=== PATIENT | male | born 1945 | race Caucasian/White ===

== ENCOUNTER → 2017-12-28 08:15 | Outpatient (CLI) | payer MEDICARE, SELFPAY ==
--- NOTE | 2017-12-29 | PROSBIL_PTH ---
PATIENT: UNA LOZADA LOC: [facility] U#:[id number] AGE/SX: 79/M ROOM: RE12/28/[address]: Dr. Dain Reardon MD : 1945 BED: DIS: SPEC #: [id number] RECD: 12/29/17 08:38 STATUS: FREDDIE CHYNA #: [id number] JONO: 12/29/17 00:[address]: Dain Reardon DEPT: SURGICAL PATHOLOGY RECD BY: Kai Salmeron Tissues: A - PROSTATE RIGHT B - PROSTATE RIGHT C - PROSTATE RIGHT D - PROSTATE LEFT E - PROSTATE LEFT F - PROSTATE LEFT Procedures: PROSTATE BX HEADER OPERATION: Prostate biopsy PRE-OP DIAGNOSIS: R97.20 TISSUE SUBMITTED: A-Right apex, B-Right mid, C-Right base, D-Left apex, E-Left mid, F-Left base MICROSCOPIC DIAGNOSIS A. Right prostate, apex, core biopsy: Prostatic adenocarcinoma: Mary grade: 8 (5+3). Cores involved: 2 out of 2. Tissue involved: 60% Perineural invasion: Not identified. Greatest tumor length: 1 cm, discontinuous. Focal high-grade prostatic intraepithelial neoplasia (HGPIN) Chronic inflammation. See comment. B. Right prostate, mid, core biopsy: Prostatic adenocarcinoma: Adenocarcinoma: [place] grade: 10 (5+5) Cores involved: 1 out of 2 Tissue involved: less than 5% Perineural invasion: not identified Greatest tumor length: 0.1 cm See comment. C. Right prostate, base, core biopsy: Negative for malignancy. See comment. D. Left prostate, apex, core biopsy: Prostatic tissue, negative for malignancy. E. Left prostate, mid, core biopsy: Prostatic tissue, negative for malignancy. F. Left prostate, base, core biopsy: Prostatic Adenocarcinoma: [place] grade: 6 (3+3) Cores involved: 1 out of 2 Tissue involved: < 5% Perineural invasion: not seen Greatest tumor length: 0.1 cm Focal high-grade prostatic intraepithelial neoplasia (HGPIN) See comment COMMENT A, B, C, and F Immunohistochemistry ([id number]) supports the above diagnosis. MICROSCOPIC DESCRIPTION Slides are reviewed. GROSS DESCRIPTION A - Received is one container designated prostate, right apex. The specimen consists of two elongated fragments of light humphrey-white soft tissue each measuring 1.5 cm in length and 0.1 cm in diameter. The specimen is totally submitted in one cassette. B - Received is one container designated prostate, right mid. The specimen consists of two elongated fragments of light humphrey-white soft tissue each measuring 1.5 cm in length and 0.1 cm in diameter. The specimen is totally submitted in one cassette. C - Received is one container designated prostate, right base. The specimen consists of two elongated fragments of light humphrey-white soft tissue each measuring 1.1 cm in length and 0.1 cm in diameter. The specimen is totally submitted in one cassette. D - Received is one container designated prostate, left apex. The specimen consists of one elongated fragments of light humphrey-white soft tissue each measuring 1.8 cm in length and 0.1 cm in diameter. The specimen is totally submitted in one cassette. E - Received is one container designated prostate, left mid. The specimen consists of three elongated fragments of light humphrey-white soft tissue each measuring 0.5 to 1.5 cm in length and 0.1 cm in diameter. The specimen is totally submitted in one cassette. F - Received is one container designated prostate, left base. The specimen consists of three elongated fragments of light humphrey-white soft tissue each measuring 0.3 to 1.5 cm in length and 0.1 cm in diameter. The specimen is totally submitted in one cassette. / [place]:gabbie 12/29/17 TC:0 CPT: G0146
--- NOTE | 2017-12-29 | IMM_PTH ---
PATIENT: UNA LOZADA LOC: [facility] U#:[id number] AGE/SX: 79/M ROOM: RE12/28/[address]: Dr. Dain Reardon MD : 1945 BED: DIS: SPEC #: [id number] RECD: 01/01/18 10:42 STATUS: FREDDIE RECarl #: [id number] JONO: 12/29/17 00:[address]: Dain Reardon DEPT: IMMUNOHISTOCHEMISTRY RECD BY: Winter Michaud Tissues: A - PROSTATE RIGHT B - PROSTATE RIGHT C - PROSTATE RIGHT F - PROSTATE LEFT Procedures: 34BE12 (add) P40 (add) 34BE12 (initial) PHYSICIAN & INSTITUTION [place] [id number] SPECIMEN INFORMATION: Tissue Source: A. Right prostate, apex, B. Right prostate, mid, C. Right prostate, base, F. Left prostate, base Clinical Info: R97.20 Specimen Number: [id number] A, B, C, F CPT code: 58190. [id number] METHODOLOGY: Deparaffinized sections of prefer/formalin-fixed tissue or PAP/DQ stained slides are incubated with monoclonal/polyclonal antibodies/oligonucleotide probes. Localization is made via biotin free immunoperoxidase method. Appropriate controls are performed and reacted as expected. Results on target cell population are indicated in the following table: RESULTS: ANTIBODY / CLONE RESULT Block A P40 (BC28) negative 34BE12 (34BE12) negative Block B P40 (BC28) negative 34BE12 (34BE12) negative Block C P40 (BC28) positive 34BE12 (34BE12) positive Block F P40 (BC28) negative 34BE12 (34BE12) negative These tests were developed and their performance characteristics determined by [facility]. They may not have been cleared or approved by the U.S. Food and Drug Administration. The FDA has determined that such clearance or approval is not necessary. INTERPRETATION: A. Right prostate, apex: Adenocarcinoma B. Right prostate, mid: Adenocarcinoma C. Right prostate, base: Negative for adenocarcinoma F. Left prostate, base: Adenocarcinoma [place]:bill 01/02/18
== END ==
LOC: LAB 12-29 08:16 → LABSPEC 12-29 08:19
PROVIDERS: Visit Provider Urology
DX: R97.20 Elevated prostate specific antigen [PSA] (principal)
CPT/HCPCS: 88305; 88341; 88342; G0416

== ENCOUNTER → 2018-01-04 10:01 | Outpatient (CLI) | payer MEDICARE, SELFPAY ==
--- NOTE | 2018-01-04 10:08 | NM_ITS ---
CLINICAL: 72-year-old male with history of apparent prostate carcinoma. WHOLE BODY 99m Tc MDP RADIONUCLIDE BONE SCINTIGRAPHY COMPARISON: None available FINDINGS: Following the intravenous administration of 25.9 mCi of 99m Tc MDP, whole body bone images reveal: 1. Increased radiopharmaceutical concentration is identified in the proximal sternum, the sixth-ninth and 12th thoracic vertebra. 2. Enhanced tracer uptake is defined in the acromioclavicular compartments of both shoulders, sternoclavicular compartment of the right shoulder, upper cervical spine posteriorly on the right, first thoracic vertebra posteriorly on the right, fourth lumbar vertebra posteriorly on the left, the fifth lumbar vertebra posteriorly on the right, bilateral elbow and wrist articulations, right-left knees, right ankle, the forefoot bilaterally. 3. The remaining skeletal structures are scintigraphically unremarkable with normal-appearing renal images and urinary bladder activity identified. NM/Bone Scan Whole Body IMPRESSION: 1. The increased radiopharmaceutical concentration identified in the proximal sternum, mid and lower thoracic spine may be further investigated with plain film radiography in the setting of known prostate carcinoma. 2. Degenerative arthritis is otherwise expressed in the cervical and upper thoracic spine, lower lumbar spine, bilateral shoulder elbow and wrist articulations, right-left knees, the right ankle, right-left forefoot. Electronically Signed: Jayce Bunn DO at 10:37 EDT Tel , Service support ,
== END ==
PROVIDERS: Family Provider Preventive Medicine Occupational Medicine; PCP Preventive Medicine Occupational Medicine; Visit Provider Urology
DX: C61 Malignant neoplasm of prostate (principal)
CPT/HCPCS: 78306

== ENCOUNTER → 2018-01-05 14:07 | Outpatient (CLI) | payer MEDICARE, SELFPAY ==
--- NOTE | 2018-01-05 14:25 | RAD_ITS ---
STUDY: X-RAY - THORACIC SPINE REASON FOR EXAM: Male, 72 years old. Prostate cancer. Back pain. TECHNIQUE: 3 view(s) of the thoracic spine were obtained. COMPARISON: None. FINDINGS: There are multilevel degenerative disc and facet changes. There are NO fractures or malalignments. Bone density is within normal limits. There is normal kyphosis of thoracic spine. The paraspinal soft tissues are unremarkable. RAD/Thoracic Spine 2 Views IMPRESSION: There is NO acute bony abnormality. Electronically Signed: Amaury Gauthier MD at 1:13 EDT , Service support ,
--- NOTE | 2018-01-05 14:40 | RAD_ITS ---
STUDY: X-RAY STERNUM REASON FOR EXAM: Male, 72 years old. Abnormal bone scan TECHNIQUE: 4 view(s) of the sternum were obtained. COMPARISON: Bone scan January 04, 2018. FINDINGS: Normal manubrium. Normal sternomanubrial joint. Normal sternal body and xiphoid process. There is no demonstrated fracture of the sternum. No blastic or lytic lesions. Increased radioisotope uptake at the proximal sternal area may be related to the sternomanubrial junction with a broken sternotomy wire at this level. The soft tissue structures are unremarkable. RAD/Sternum min 2 Views IMPRESSION: Increased radioisotope uptake at the proximal sternal area may be related to the sternomanubrial junction with a broken sternotomy wire at this level. Electronically Signed: Chuckie Torres DO at 8:45 EDT Tel [phone], Service support ,
--- NOTE | 2018-01-05 14:55 | RAD_ITS ---
STUDY: X-RAY - LUMBAR SPINE REASON FOR EXAM: Male, 72 years old. Prostate cancer TECHNIQUE: 6 view(s) of the lumbar spine were obtained. COMPARISON: None FINDINGS: There are pedicle screws and fusion hardware transfixing L2, L3, L4, L5 and S1. The hardware is intact. There is loss of disc height and slight grade 1 anterior spondylolisthesis at L5-S1. There is bilateral facet hypertrophy, osteophytic ridging and foraminal stenosis at L4-5 and L5-S1. There are NO fractures. There is NO specific evidence of metastatic malignancy. There is RIGHT hip replacement hardware. There are stones in the region of the RIGHT kidney. There is calcified plaque in the abdominal aorta without evidence of aneurysm. RAD/L/S Spine Min 4 Views IMPRESSION: There are postsurgical and degenerative changes as described. There is NO fracture. There is NO evidence of metastatic malignancy. Electronically Signed: Amaury Gauthier MD at 7:09 EDT , Service support ,
== END ==
PROVIDERS: Family Provider Preventive Medicine Occupational Medicine; PCP Preventive Medicine Occupational Medicine; Visit Provider Nurse Practitioner Adult Health
DX: C61 Malignant neoplasm of prostate (principal)
CPT/HCPCS: 71120; 72070; 72110

== ENCOUNTER → 2018-02-13 11:02 | Outpatient (CLI) | payer MEDICARE, SELFPAY ==
[2018-02-13 11:37] LABS: Absolute Lymphocyte Count 1.97 X10^3/ul (0.83-4.51); Basophil# 0.03 X10^3/uL; Basophil% 0.4 % (0-1); Eosinophil# 0.23 X10^3/uL; Eosinophils% 3.4 % (0-5); Hemoglobin 14.2 g/dl (13.0-16.5); Lymphocyte # 1.97 X10^3/ul (4.0); Lymphocyte % 29.1 % (19-41); Mean Corp Hgb Conc 32.3 g/gl (32-36); Mean Corpuscular Hgb 30.5 pg (27.0-32.0); Mean Corpuscular Volume 94.4 fL (80-94); Mean Platelet Vol. 9.8 fl (6.2-12.0); Monocyte# 0.53 X10^3/uL; Monocyte% 7.8 % (0-10); Neutrophil # 3.99 X10^3/uL (2.7-7.7); Neutrophil % 59.2 % (47-70); Platelet Count 217 K/mm3 (150-450); RBC Distribution Width CV 13.2 % (11.6-14.6); RBC Distribution Width SD 45.4 fl (35.1-43.9); Red Blood Count 4.66 M/mm3 (4.6-6.2); White Blood Count 6.8 K/mm3 (4.4-11.0)
[2018-02-13 11:38] LABS: POSITIVE COUNT NO; POSITIVE DIFFERENTIAL NO; POSITIVE MORPHOLOGY NO
[2018-02-13 12:33] LABS: Creatinine, Serum 1.86 mg/dL (0.70-1.30); EST Glomerular Filtration Rate 38 mL/min (>60); Est Glom Filt Rate - Afr Amer 46 mL/min (>60); PSA,Total- Diagnostic 0.67 ng/mL (0.0-4.0)
== END ==
PROVIDERS: Family Provider Preventive Medicine Occupational Medicine; PCP Preventive Medicine Occupational Medicine; Visit Provider Radiology Radiation Oncology
DX: Z01.818 Encounter for other preprocedural examination (principal); C61 Malignant neoplasm of prostate
CPT/HCPCS: 36415; 82565; 84153; 85025

== ENCOUNTER → 2018-02-14 12:54 | Outpatient (CLI) | payer MEDICARE, SELFPAY ==
--- NOTE | 2018-02-14 12:57 | CT_ITS ---
STUDY: CT PELVIS WITH CONTRAST REASON FOR EXAM: Male, 72 years old. Recent diagnosis of prostate cancer. This is a radiation treatment planning examination. RADIATION DOSAGE (If Supplied By Facility): CTDIvol = ( 24.46 ) mGy, DLP = ( 808.03 ) mGycm TECHNIQUE: Transaxial imaging of the pelvis was performed with oral contrast. 75mL ml of Isovue 300 contrast was administered intravenously. Individualized dose optimization techniques were used for this CT. COMPARISON: None. FINDINGS: Normal urinary bladder. Prostatic calcifications are seen. Metallic pellets are seen within the prostate gland. The prostate causes indentation at the bladder base more prominent on the left side. Normal visualized small intestine. There are multiple colonic diverticula of the sigmoid colon consistent with chronic diverticulosis. There is no pelvic fluid. There is no pelvic lymphadenopathy or mass lesion. There is diffuse atherosclerotic calcification of the distal abdominal aorta and pelvic arteries. Normal abdominal wall. The patient is status post right total hip replacement. Status post laminectomy and interpedicular screw fixation at the L4-L5 and L5-S1 levels. Sclerotic foci seen within the L4 and L5 vertebrae. Bone scan is recommended. CT/CT Pelvis W/CONT Therapy IMPRESSION: Metallic pellets are seen within the prostate. Calcification within the prostate gland. Indentation of the bladder base worse on the left side most likely secondary to the prostate. Electronically Signed: Asher Reed MD at 13:30 EDT Tel [phone], Service support ,
== END ==
PROVIDERS: Family Provider Preventive Medicine Occupational Medicine; PCP Preventive Medicine Occupational Medicine; Visit Provider Radiology Radiation Oncology
DX: C61 Malignant neoplasm of prostate (principal)
CPT/HCPCS: 51600; 72193; Q9965; Q9967; A4216

== ENCOUNTER → 2018-06-07 10:50 | Outpatient (CLI) | payer MEDICARE, SELFPAY ==
[2018-06-07 11:51] LABS: PSA,Total- Diagnostic < 0.01 ng/mL (0.0-4.0)
== END ==
PROVIDERS: Family Provider Preventive Medicine Occupational Medicine; PCP Preventive Medicine Occupational Medicine; Referring Provider Radiology Radiation Oncology; Visit Provider Radiology Radiation Oncology
DX: Z85.46 Personal history of malignant neoplasm of prostate (principal)
CPT/HCPCS: 36415; 84153

== ENCOUNTER → 2018-11-12 10:54 | Outpatient (CLI) | payer MEDICARE, SELFPAY ==
[2018-11-12 11:53] LABS: PSA,Total- Diagnostic < 0.01 ng/mL (0.0-4.0)
== END ==
PROVIDERS: Family Provider Preventive Medicine Occupational Medicine; PCP Preventive Medicine Occupational Medicine; Referring Provider Urology; Visit Provider Urology
DX: C61 Malignant neoplasm of prostate (principal); R97.20 Elevated prostate specific antigen [PSA]
CPT/HCPCS: 36415; 84153

== ENCOUNTER → 2019-05-14 10:00 | Outpatient (CLI) | payer MEDICARE, SELFPAY ==
[2019-05-14 13:20] LABS: PSA,Total- Diagnostic < 0.01 ng/mL (0.0-4.0)
== END ==
PROVIDERS: Family Provider Preventive Medicine Occupational Medicine; PCP Preventive Medicine Occupational Medicine; Referring Provider Urology; Visit Provider Urology
DX: R97.20 Elevated prostate specific antigen [PSA] (principal)
CPT/HCPCS: 36415; 84153

== ENCOUNTER → 2019-07-23 13:35 | Outpatient (CLI) | payer MEDICARE, SELFPAY ==
--- NOTE | 2019-07-23 13:45 | CT_ITS ---
STUDY: CT SCAN HIP RIGHT REASON FOR EXAM: Male, 73 years old. Right hip pain, osteoarthritis, fell 4 months ago, ? fracture. Hx prostate cancer with radiation treatment. Prior right hip replacement. RADIATION DOSAGE (If Supplied By Facility): CTDIvol = ( 13.14 ) mGy, DLP = ( 498.76 ) mGycm. Individualized dose optimization techniques were used for this CT.? TECHNIQUE: Multiple axial tomographic images of the hip joint were obtained without intravenous contrast administration. Sagittal and coronal reconstruction was obtained as well. COMPARISON: None. FINDINGS: The patient is status post right total hip replacement. There is good alignment. No evidence of subluxation. No evidence of fracture. Prior laminectomy and fusion in the lower lumbar spine. Disc space narrowing and degeneration at the L4-L5, L5-S1 levels. Degenerative changes of the right sacroiliac joint. Metallic seeds are seen within the prostate gland. CT/Extremity Lower without Contra IMPRESSION: Status post right total hip replacement. Prior laminectomy and fusion in the lower lumbar spine with degenerative changes. Electronically Signed: Asher Reed, at 14:56 EST , Service support ,
== END ==
PROVIDERS: Family Provider Preventive Medicine Occupational Medicine; PCP Preventive Medicine Occupational Medicine; Referring Provider Orthopaedic Surgery; Visit Provider Orthopaedic Surgery
DX: M16.11 Unilateral primary osteoarthritis, right hip (principal)
CPT/HCPCS: 73700

== ENCOUNTER → 2019-08-20 10:31 | Outpatient (CLI) | payer MEDICARE, SELFPAY ==
[2019-08-20 11:18] LABS: PSA,Total- Diagnostic < 0.01 ng/mL (0.0-4.0)
== END ==
PROVIDERS: PCP Preventive Medicine Occupational Medicine; Referring Provider Urology; Visit Provider Urology
DX: C61 Malignant neoplasm of prostate (principal)
CPT/HCPCS: 36415; 84153

== ENCOUNTER → 2019-09-17 07:29 | Outpatient (CLI) | payer MEDICARE, SELFPAY ==
--- NOTE | 2019-09-17 07:35 | CT_ITS ---
STUDY: CT LUMBAR SPINE WITHOUT CONTRAST REASON FOR EXAM: Male, 73 years old. PSEUDOARTHROSIS. Prior lumbar fusion, rt hip replacement and CABG. HTN-rx controlled. Hx of prostate cancer with radiation RADIATION DOSAGE (If Supplied By Facility): CTDIvol = ( 14.35 ) mGy, DLP = ( 438.44 ) mGycm TECHNIQUE: The patient was scanned in a multi detector CT scanner. High resolution transaxial imaging was performed. Images were obtained from T12 to S1 vertebrae. Sagittal and coronal images were reconstructed. Individualized dose optimization techniques were used for this CT. COMPARISON: None FINDINGS: Normal lumbar lordosis. There is no substantial scoliosis. Normal vertebrae of the lumbar spine. The patient is status post interpedicular screw fixation at the L2-L3, L3-L4 L4-L5 and L5-S1 levels. L1-2: Interpedicular screw fixation is seen at the level of the L2 pedicles. L2-3: Increased density of the disc suggestive of prior discogram. The patient is status post interpedicular screw fixation. This screws are in good position. Facet joint hypertrophy with moderate narrowing of both intervertebral foramen. L3-4: Moderate degree of disc space narrowing. Contrast is seen within the disc in keeping with prior discogram. Status post interpedicular screw fixation with mild to moderate degree of bilateral neural foraminal stenosis. L4-5: The patient is status post screw fixation. Contrast is seen within normal-appearing disc suggestive of prior discogram. Facet joint osteoarthritis. L5-S1: Grade 1 anterolisthesis of L5 on S1. Interpedicular screw fixation. Increased density within the disc suggestive of prior discogram. No significant stenosis seen. The patient is status post right hip replacement. Calcification of the visualized distal abdominal aorta and iliac arteries bilaterally. CT/Spine Lumbar without Contrast IMPRESSION: Multilevel degenerative changes, as described above. Multilevel discograms with interpedicular screw fixation. Grade 1 anterolisthesis of L5 on S1. Electronically Signed: Asher Reed, at 8:32 EDT , Service support ,
--- NOTE | 2019-09-17 07:46 | NM_ITS ---
CLINICAL: 73-year-old male with reported history of carcinoma of the prostate WHOLE BODY 99m Tc MDP RADIONUCLIDE BONE SCINTIGRAPHY COMPARISON: Previous whole body bone scintigraphy study dated 01/04/2018 FINDINGS: Following the intravenous administration of 27.0 mCi of 99m Tc MDP, whole body bone images reveal: 1. Increased radiopharmaceutical concentration remains apparent in the bilateral shoulders, mid cervical spine posteriorly on the left and right, right elbow, bilateral wrist articulations, medial femoral and tibial compartments of the left knee, bilateral forefoot, the seventh, ninth and 12th thoracic vertebra. 2. Enhanced tracer uptake is noted in the acetabular component of the right hip arthroplasty. 3. The remaining skeletal structures are scintigraphically unremarkable with normal-appearing renal images and urinary bladder activity identified. Redemonstrated facilitated tracer distribution is noted in the proximal sternum likely attributed to poststernotomy changes. NM/Bone Scan Whole Body IMPRESSION: 1. The increase in radiopharmaceutical concentration observed in the acetabular component of the right hip prosthesis likely represents a component of loosening secondary to the intensity of uptake. Correlation plain film radiography may be of benefit for further evaluation if trauma-fracture is a diagnostic consideration. 2. Degenerative arthritis appears expressed in the bilateral shoulders, right elbow, both wrists, left knee, right and left forefoot, cervical and thoracic spine. 3. Overall compared to the previous whole body bone scintigraphy study dated 01/04/2018, newly identified increased tracer uptake noted in the acetabular component of the right hip prosthesis may warrant further radiologic investigation. Electronically Signed: Jayce Bunn DO at 23:36 EDT Tel , Service support ,
== END ==
PROVIDERS: PCP Preventive Medicine Occupational Medicine; Referring Provider Orthopaedic Surgery; Visit Provider Orthopaedic Surgery
DX: M96.0 Pseudarthrosis after fusion or arthrodesis (principal)
CPT/HCPCS: 72131; 78306

== ENCOUNTER → 2019-11-28 11:27 | Outpatient (CLI) | payer MEDICARE, SELFPAY ==
[2019-11-28 13:00] LABS: PSA,Total- Diagnostic < 0.01 ng/mL (0.0-4.0)
== END ==
PROVIDERS: PCP Preventive Medicine Occupational Medicine; Referring Provider Urology; Visit Provider Urology
DX: C61 Malignant neoplasm of prostate (principal)
CPT/HCPCS: 36415; 84153

== ENCOUNTER 2020-01-08 16:15 | Inpatient (IN) | payer MEDICARE, SELFPAY ==
[2020-01-08 16:17] VITALS: BP 147/84; PULSE 74; PULSE 75; RESP 18; RESP 20; TEMP 36.7; O2SAT 98; O2SAT 99; BMI 24.0
--- NOTE | 2020-01-08 16:33 | ED.DCSUM_ITS ---
History of Present Illness Chief Complaint: Lower Extremity Injury Informant: Patient, Significant Other Occurred: Month(s) - 9 Mechanism/Context: Fall Context: Sudden Onset Timing: Continuous Quality of Pain: Aching Location: R hip Current Severity: Severe Maximum Severity: Severe Worsened by: trying to WB, moving RLE Relieved by: remaining still Associated Symptoms: Negative for: Parasthesia, Weakness, Loss of Funtion Narrative: Patient and spouse state that he had a remote right total hip arthroplasty by Dr. Abdul, and 9 months ago he had a mechanical fall wherein he fell onto the right hip and has been having pain ever since. He is on pain management and has had injections but they have not helped. He saw Dr. Abdul about 4 months ago and had x-rays. They state that the pain is been getting worse, states that pain management physician was supposed to discuss with orthopedics yesterday because he feels it is something mechanical. Patient is having so much pain now, that he cannot walk, so they felt that the had no choice other than to come to the emergency department, because they have not heard from anyone else yet despite trying to get a hold of these practitioners today. Denies any fevers or repeat injuries. No numbness or weakness distally. No other pain. Takes no anticoagulants. - Past Medical History (1) CAD (coronary artery disease) Status: Chronic (2) Arthritis Status: Chronic Past Medical History - Allergies and Home Meds Allergies/Adverse Reactions: Allergies ciprofloxacin [From Cipro] Adverse Reaction (Verified 01/08/20 16:16) Other PANCREATITIS ciprofloxacin HCl [From Cipro] Adverse Reaction (Verified 01/08/20 16:16) Other PANCREATITIS erythromycin base [Erythromycin Base] Adverse Reaction (Verified 01/08/20 16:16) Other LUMPS ON BODY potassium Adverse Reaction (Verified 01/08/20 16:16) Other POTASSIUM LEVELS ARE ELEVATED Primary Care Physician: Bladimir Bazan DO [Primary Care Provider] - Surgical History: coronary bypass surgery, total hip arthroplasty Lives: Spouse/ Significant Other Smoking Status: Former smoker Review of Systems General: Denies: Chills, Fever, Sweats Eyes: Denies: Visual changes - bilaterally, Diplopia ENT: Denies: Rhinorrhea, Sore throat Cardiovascular: Denies: Chest pain, Palpitations Respiratory: Denies: Dyspnea, Cough, Dyspnea on exertion Gastrointestinal: Denies: Abdominal pain, Nausea, Vomiting, Diarrhea, Melena, Hematochezia Genitourinary: Denies: Dysuria, Hematuria, Frequency Musculoskeletal: Reports: Extremity Pain. Denies: Neck pain, Back pain, Swelling Skin: Denies: Rash, Wounds Neurological: Denies: Headache, Weakness, Numbness Physical Exam Vital Signs/Narrative: Vital Signs Temp Pulse Resp BP Pulse Ox 01/08/20 16:17 98.0 F 74 18 147/84 H 99 Inital Vital Signs reviewed: Yes - Extremity Exam Right Hip: Limited ROM - Significant pain with any internal/external rotation of the right hip. With short arc range of motion, he does not have any stiffness of the joint but it is painful. There is no overlying erythema or warmth about the right groin or lateral aspect of the hip joint. There is shortening of the right lower extremity compared with the left. General: Well nourished, Well developed, - - nad Head: Normocephalic, Atraumatic Eyes: Perrl, EOMI ENT: No Trauma, Moist Mucous Membranes Neck: Nontender, Full ROM Cardiovascular: Regular rate, Regular rhythm, No murmurs Respiratory: No distress, CTA bilaterally, Chest nontender Abdomen: Soft, Nontender, Normal bowel sounds Back: Nontender Skin: Normal color, No rash, No Trauma Neurological: Alert, Oriented x3, Cranial nerves II-XII grossly intact, Normal Strength, Normal Sensation Psychological: Normal affect, Normal Mood Diagnostic/Tx/Re-eval Impressions Hip/Pelvis X-Ray 01/08/20 17:18 IMPRESSION: Prosthetic right femoral head has eroded from the acetabulum into the inferior right ilium and a medial cephalad direction. Femoral shaft component remains intact without periprosthetic fracture or disruption. The remainder of the pelvic ring and left hip remain unchanged. Bilateral spinal fusion hardware included in the [id number] and appears unchanged as excluded. Electronically Signed: Noreen Cruz MD at 17:38 EDT , Service support , 01/08/20 17:18 HIP, UNI W/ Pelvis 2-3 Views [RAD] Stat 01/08/20 18:52 CT Hip [Pelvis without IV Contrast] [CT] Stat Laboratory Results 01/08/20 01/08/20 17:00 17:00 WBC 9.5 RBC 4.16 L Hgb 13.2 Hct 40.2 MCV 96.6 H MCH 31.7 MCHC 32.8 RDW Std Deviation 46.5 H RDW Coeff of Eric 13.2 Plt Count 277 MPV 9.5 Immature Gran % (Auto) 0.400 Neut % (Auto) 72.7 H Lymph % (Auto) 16.5 L [place] % (Auto) 8.4 Eos % (Auto) 1.7 Baso % (Auto) 0.3 Absolute Neuts (auto) 6.9 Absolute Lymphs (auto) 1.57 Nucleated RBC % 0 ESR 22 H Sodium 137 Potassium 4.2 Chloride 104 Carbon Dioxide 24.0 Anion Gap 9 BUN 23 H Creatinine 1.54 H Estim Creat Clear Calc 32.84 Est GFR (MDRD) Af Amer 57 L Est GFR (MDRD) Non-Af 47 L BUN/Creatinine Ratio 14.9 Glucose 113 H Calcium 9.7 C-React Prot Ext Range 6.89 H - Medical Decision Making X-ray shows erosion of the acetabulum and displacement of the femoral prosthetic into the pelvis. Labs including ESR and CRP are obtained and as above. Discussed with orthopedics, Dr. Naik covering for Dr. Abdul. He discussed with Dr. Jacinto who is able to care for this patient will see him tomorrow in the hospital. Hospitalist requested for admission. Discussed with Dr. Turcios. ED Disposition - Plan for ED Patient: Disposition: Acute Care Hospital [facility] Diagnosis: Displaced dome fracture of right acetabulum Referrals: Bladimir Bazan DO [Primary Care Provider] -
[2020-01-08] MEDS: Morphine 2 MG/ML Syringe IV (16:56)
--- NOTE | 2020-01-08 17:18 | RAD_ITS ---
STUDY: X-RAY - PELVIS AND RIGHT HIP REASON FOR EXAM: Male, 74 years old. CHRONIC HIP PAIN FOR 9 MONTHS, HEARD A POP 4 DAYS AGO TECHNIQUE: 3 views of the pelvis and hip. COMPARISON: Prior CT pelvis of February 14, 2018 and prior pelvis and hip radiographs of June 24, 2013 FINDINGS: There is a non-specific bowel gas pattern. Bilateral posterior spinal fusion hardware included in the [id number] extends throughout the lumbar level to the level of S1. The prosthetic right femoral head has eroded from the acetabulum into the inferior right ilium and has migrated cephalad. The femoral portion of the prosthesis is intact without periprosthetic abnormality. The pelvic ring is otherwise intact. The left femur remains normally located with moderate to moderately advanced joint narrowing. RAD/HIP, UNI W/ Pelvis 2-3 Views IMPRESSION: Prosthetic right femoral head has eroded from the acetabulum into the inferior right ilium and a medial cephalad direction. Femoral shaft component remains intact without periprosthetic fracture or disruption. The remainder of the pelvic ring and left hip remain unchanged. Bilateral spinal fusion hardware included in the [id number] and appears unchanged as excluded. Electronically Signed: Noreen Cruz MD at 17:38 EDT , Service support ,
[2020-01-08 17:19] LABS: Absolute Lymphocyte Count 1.57 X10^3/uL (0.83-4.51); Absolute Neutrophil Count 6.9 X10^3/uL (2.0-7.7); Basophil# 0.03 X10^3/uL; Basophil% 0.3 % (0-1); Eosinophil# 0.16 X10^3/uL; Eosinophils% 1.7 % (0-5); Hematocrit 40.2 % (40-54); Hemoglobin 13.2 g/dL (13.0-16.5); Lymphocyte # 1.57 X10^3/ul (4.0); Lymphocyte % 16.5 % (19-41); Mean Corp Hgb Conc 32.8 g/dL (32-36); Mean Corpuscular Hgb 31.7 pg (27.0-32.0); Mean Corpuscular Volume 96.6 fL (80-94); Mean Platelet Vol. 9.5 fl (6.2-12.0); Monocyte% 8.4 % (0-10); NRBC Flagged by Analyzer 0 % (0-5); Neutrophil # 6.92 X10^3/uL (2.7-7.7); Neutrophil % 72.7 % (47-70); Platelet Count 277 K/mm3 (150-450); RBC Distribution Width CV 13.2 % (11.6-14.6); RBC Distribution Width SD 46.5 fl (35.1-43.9); Red Blood Count 4.16 M/mm3 (4.6-6.2); White Blood Count 9.5 K/mm3 (4.4-11.0)
[2020-01-08 17:31] LABS: Erythrocyte Sedimentation Rate 22 mm/hr (0-20)
[2020-01-08 17:36] LABS: Anion Gap 9 (5-15); BUN 23 mg/dL (7-18); BUN/Creat Ratio 14.9 RATIO (10-20); CRP 6.89 mg/L (0.0-3.0); Calcium,Total 9.7 mg/dL (8.5-10.1); Chloride 104 mmol/L (98-107); Creatinine, Serum 1.54 mg/dL (0.70-1.30); EST Glomerular Filtration Rate 47 mL/min (>60); Est Glom Filt Rate - Afr Amer 57 mL/min (>60); Estimated Creatinine Clearance 32.84 ml/min; Glucose 113 mg/dL (74-106); Potassium 4.2 mmol/L (3.5-5.1); Sodium Level 137 mmol/L (136-145)
--- NOTE | 2020-01-08 18:52 | CT_ITS ---
STUDY: CT PELVIS WITHOUT CONTRAST REASON FOR EXAM: Male, 74 years old. INCREASING RT HIP PAIN X 9 MO FALL AFTER TOTAL HIP RADIATION DOSAGE (If Supplied By Facility): CTDIvol = ( 13.17 ) mGy, DLP = ( 434.12 ) mGycm TECHNIQUE: Transaxial imaging of the pelvis was performed with oral contrast, and without intravenous administration of contrast material. Multiplanar coronal and sagittal images were reformatted. Individualized dose optimization techniques were used for this CT. COMPARISON: And pelvis films of January 20, 2020 FINDINGS: The total hip arthroplasty hardware remains located and has migrated medial and cephalad out of the acetabulum, through the inferior right ilium and situated on the medial surface of the ilium covered at least partly by a thin wall of bone or ossification and covered over by the attenuated iliopsoas muscle. The left hip remains normally located. Demineralized osseous structures are within otherwise intact pelvis. Spinal fusion hardware noted in the lumbar area terminating at sacral level. There is no pelvic fluid. Diverticulosis of the colon. Unremarkable urinary bladder. Small fatty left inguinal hernia. Minimal right inguinal hernia. There is diffuse atherosclerotic calcification of the pelvic arteries. Normal osseous structures. CT/Pelvis without IV Contrast IMPRESSION: The total right hip arthroplasty hardware remains located and has migrated medial and cephalad out of the acetabulum through the inferior ilium and lies on the medial surface of the right ilium and covered over by the attenuated iliopsoas muscle. Electronically Signed: Noreen Cruz MD at 19:30 EDT , Service support ,
[2020-01-08] MEDS: Morphine 4 MG/ML Syringe IV (19:24)
--- NOTE | 2020-01-08 19:34 | HP.PCM_ITS ---
Problem List (1) Hypertension Status: Chronic (2) CAD (coronary artery disease) Status: Chronic Qualifiers: Coronary Disease-Associated Artery/Lesion type: unspecified vessel or lesion type Associated angina: without angina (3) Displaced dome fracture of right acetabulum Status: Acute Qualifiers: Encounter type: initial encounter Fracture type: closed Qualified Code(s): S32.481A - Displaced dome fracture of right acetabulum, initial encounter for closed fracture (4) Prostate cancer Status: Suspected History of Present Illness Date of Admission: 01/08/20 Chief Complaint: Right hip pain, ongoing for 9 months The patient is a 74 year old M with past medical history of CAD status post stent, status post CABG in 2011, prostate cancer in remission, hypertension, who had a hip replacement done in 2012 comes in with a 9-month history of right hip pain. He reportedly saw the Dr. Carias in October of this year and x-rays including MRI were negative for acute fracture. He has had 2 falls the last 6 months, the last one was 3 weeks ago when he fell on his left side. Progressively over the last 3 months, patient has been having severe right hip pain with a feeling of hip popping out. Last felt his hip pop out 4 days ago. He also follows up with Dr. Sena and has been getting injections in the hip. He moves around with the use of a walker. He is however unable to walk due to excruciating pain. He follows with a [facility] specialist in [place], Dr. Tia Plaza. Patient and his reportedly see the patient had a stress test about a year ago that was normal Vitals in the ED showed temperature of 98.0F, heart rate 75, blood pressure 147/84, respiratory 20, SPO2 was 98% on room air. WBC count is 9.5, Hb 13.2, platelet count 277, sodium 137, potassium 4.2, chloride 104, bicarbonate 24, BUN 23, creatinine 1.54, CRP is 6.89 X-ray of the right hip and pelvis shows prosthetic right femoral head is eroded from the acetabulum into the inferior right ilium in a medial cephalad direction. Rest of femur shaft and pelvic bones are intact without fracture. This was confirmed with pelvic CT which showed migration of the prosthesis medially and cephalad out of the acetabulum through the inferior ilium and lies on the medial surface of the right ilium and covered by the attenuated iliopsoas muscle. Past Medical History Past Medical History (Chronic Problems): Chronic Problems CAD (coronary artery disease) (Chronic) Arthritis (Chronic) Hypertension (Chronic) Allergies ciprofloxacin [From Cipro] Adverse Reaction (Verified 01/08/20 16:16) Other PANCREATITIS ciprofloxacin HCl [From Cipro] Adverse Reaction (Verified 01/08/20 16:16) Other PANCREATITIS erythromycin base [Erythromycin Base] Adverse Reaction (Verified 01/08/20 16:16) Other LUMPS ON BODY potassium Adverse Reaction (Verified 01/08/20 16:16) Other POTASSIUM LEVELS ARE ELEVATED Home Medications: Ambulatory Orders Medication Instructions Recorded Aspirin [Aspirin, Baby] 81 mg PO DAILY 01/08/20 Celecoxib [Celebrex] 200 mg PO DAILY 01/08/20 Hydrocodone/Acetaminophen 1 - 2 tab PO Q8H PRN PRN 01/08/20 [Hydrocodon-Acetaminoph 7.5-325] Metoprolol Tartrate [Lopressor 25 mg PO DAILY 01/08/20 (Beta Tony)] Vitamin A 1 tab PO DAILY 01/08/20 Vitamin B Complex 1 tab PO DAILY 01/08/20 Vitamin C 1 tab PO DAILY 01/08/20 Vitamin D3 1 tab PO DAILY 01/08/20 Vitamin E 1 tab PO DAILY 01/08/20 Surgical History: coronary bypass surgery, total hip arthroplasty, - - s/p back surgeries Psychiatric History: No pertinent psych hx Lives: Spouse/ Significant Other Smoking Status: Former smoker Tobacco Use: Non-smoker Alcohol: None Drugs: None - *Family History Maternal History Items: Heart Disease Paternal History Items: Heart Disease Review of Systems Constitutional: Denies: Anorexia, Chills, Fever, Malaise, Weakness, Weight Change, Fatigue Eyes: Denies: Blurred vision, Cataracts, Pain, Redness HEENT: Denies: Difficulty Hearing, Difficulty Swallowing, Head Aches, Hearing Changes, Sinus Congestion, Sinus Drainage Cardiovascular: Denies: Chest Pain, Claudication, Orthopnea, Palpitations, Paroxysmal Noc. Dyspnea Respiratory: Denies: Cough, Hemoptysis, Shortness of breath at rest, Shortness of breath upon exertion, Sputum production Gastrointestinal: Denies: Abdominal Pain, Hematemesis, Hematochezia, Nausea, Vomiting Genitourinary: Denies: Dysuria, Frequency, Incontinence, Nocturia Musculoskeletal: Reports: Joint Pain, Joint stiffness, Joint Tenderness Skin: Denies: Pruritis, Rash, Wounds Neurological: Reports: Numbness - in right lower leg. Denies: Difficulty swallowing, Focal weakness, Tingling Psychiatric: Denies: Anxiety, Depression, Homicidal Ideations, Suicidal Ideations Hematologic/ Lymphatic: Denies: Easy Bruising, Easy Bleeding VTE Information - Inpt Only VTE Present on Admission: No VTE Pharm Prophylaxis ordered?: Yes Patient Problems: Active and Suspected Problems Displaced dome fracture of right acetabulum (Acute) Prostate cancer (Suspected) - Physical Exam Vitals/I&O's: Vital Signs Temp Pulse Resp BP Pulse Ox 98.0 F 75 20 H 147/84 H 99 01/08/20 16:17 01/08/20 16:17 01/08/20 16:17 01/08/20 16:17 01/08/20 16:17 Oxygen Delivery Method Room Air Weight: 61.689 kg Body Mass Index (BMI) 24.0 General: Alert, Oriented x3, Cooperative, - - in mild distress from right hip pain HEENT: Atraumatic, PERRLA, EOMI, Normocephalic Oral: Moist Mucosa Neck: Supple Lungs: Clear to auscultation, Normal air movement Cardiovascular: Regular rate, Regular Rhythm, Normal S1, Normal S2, Murmur - 3/6 holosystolic murmur in aortic region Abdomen: Bowel Sounds Present, Soft, Non Tender, Non-Distended, No Hepato- splenomegaly Extremities: No edema, Tenderness - over the right hip Skin: No rashes, No breakdown Musculoskeletal: Tenderness - right leg is shortened, externally rotated, right hip tender to touch Lymphatic: No Cervical, Supraclavicular, or Inguinal Adenopathy Neurological: Cranial nerves II-XII grossly intact, Neuro grossly intact Psych/Mental Status: Normal Affect, Appropriate Laboratory Results 01/08/20 17:00: WBC 9.5, RBC 4.16 L, Hgb 13.2, Hct 40.2, MCV 96.6 H, MCH 31.7, MCHC 32.8, RDW Std Deviation 46.5 H, RDW Coeff of Eric 13.2, Plt Count 277, MPV 9.5, Immature Gran % (Auto) 0.400, Neut % (Auto) 72.7 H, Lymph % (Auto) 16.5 L, [place] % (Auto) 8.4, Eos % (Auto) 1.7, Baso % (Auto) 0.3, Absolute Neuts (auto) 6.9, Absolute Lymphs (auto) 1.57, Nucleated RBC % 0, ESR 22 H 01/08/20 17:00: Sodium 137, Potassium 4.2, Chloride 104, Carbon Dioxide 24.0, Anion Gap 9, BUN 23 H, Creatinine 1.54 H, Estim Creat Clear Calc 32.84, Est GFR (MDRD) Af Amer 57 L, Est GFR (MDRD) Non-Af 47 L, BUN/Creatinine Ratio 14.9, Glucose 113 H, Calcium 9.7, C-React Prot Ext Range 6.89 H Assessment/Plan All Active Problems Displaced dome fracture of right acetabulum (Acute) 74 year old M with past medical history of CAD status post stent, status post CA BG in 2011, prostate cancer in remission, hypertension, who had a hip replacement done in 2013 comes in with a 9-month history of right hip pain. 1. Right displaced prosthetic hip, status post right total hip replacement in 2013 X-rays of the right hip and pelvis as well as pelvic CT confirms displacement from the acetabulum Orthopedics consulted from the ED ACS NSQIP surgical risk is above average for planned procedure. Cardiology consulted to help with risk stratification. Continue with pain control with scheduled Tylenol, PRN oxycodone and morphine Hold celecoxib. PT and OT to evaluate and treat 2. Abnormal EKG, with new T wave inversions in the anterior lateral leads, This appears to be new compared to old EKGs in 2013 Patient is asymptomatic of any active cardiac symptoms Cardiology consulted -Dr. Chamorro - recommended 2D echo, dobutamine stress echo in a.m. 3. CAD s/p stent, s/p CABG, continue on aspirin, metoprolol 4. Hypertension, fairly uncontrolled secondary to pain, continue home metoprolol 5. Prostate CA, in remission 6. DVT PPx- Lovenox SC 7. Code status - Full code I discussed goals of care with patient and his at the bedside. I went on to explain in details the various types of CODE STATUS-full code, DNR CCA, DNR CC. He wants to have CPR done and put on life support if necessary and any other measures that would save his life. Time spent discussing CODE STATUS 17 minutes Inpatient E&M: 87648 Init Hosp L3 Procedures: 57322 Advncd Care Plan 30 Min
[2020-01-08 20:14] VITALS: BP 147/84; BP 154/63; PULSE 56; PULSE 74; RESP 16; RESP 20; TEMP 36.6; TEMP 36.7; O2SAT 100; O2SAT 98
[2020-01-08 20:15] VITALS: BMI 23.9
[2020-01-08 20:34] VITALS: BMI 24.0
--- NOTE | 2020-01-08 20:34 | ECHOD_ITS ---
Reason For Study: PREOPERATIVE EXAM Procedure This was a 2D Doppler, Color Flow transthoracic echocardiogram. Exam performed in department. Left Ventricle Mildly dilated left ventricle. The estimated ejection fraction is 40-45 %. Stage 1 diastolic dysfunction. There are regional wall motion abnormalities as specified. Infero-Basal: Severely Hypokinetic. Mid-Lateral : Severely Hypokinetic. Right Ventricle Mildly dilated right ventricle. Mild global right ventricular systolic dysfunction. Atria Normal left atrium. Normal right atrium. Normal atrial septum. Mitral Valve The mitral valve is structurally normal. No prolapse or stenosis seen. Tricuspid Valve Normal tricuspid valve. Trivial tricuspid valve insufficiency. Right ventricular systolic pressure estimated to be 27 mmHg. Aortic Valve Trisinus/trileaflet aortic valve. Mild diffuse aortic valve thickening. Mild (1+) aortic valve insufficiency. Pulmonic Valve Normal pulmonic valve. Trivial pulmonic valve insufficiency. Great Vessels Normal aortic root. Normal arch. Normal inferior vena cava. Inferior vena cava collapse with sniff. Pericardium/Pleural No pericardial effusion. MMode/2D Measurements & Calculations LVIDd: 5.5 cm IVSd: 1.2 cm Ao root diam: 3.4 cm LVIDs: 4.3 cm LVPWd: 1.0 cm RVDd: 3.7 cm FS: 22.2 % LAV(MOD-bp): 52.5 ml LA A4 area: 17.9 cm2 LA dimension(2D): 4.0 cm LAV(MOD-bp) Indexed: 32.1 ml/m2 LAV(MOD-sp2): 54.8 ml LAV(MOD-sp4): 47.3 ml Doppler Measurements & Calculations MV E max terry: 57.3 cm/sec Lat Peak E' Terry: 2.5 cm/sec Med Peak E' Terry: 3.9 cm/sec MV A max terry: 117.1 cm/sec E/E' lat: 23.3 E/E' med: 14.8 MV E/A: 0.49 Ao V2 max: 137.7 cm/sec AI max terry: 381.7 cm/sec LV V1 max: 107.8 cm/sec Ao max P.6 mmHg AI max P.3 mmHg LV V1 max P.7 mmHg Ao V2 mean: 81.8 cm/sec LV V1 mean P.3 mmHg Ao mean P.2 mmHg AI dec slope: 190.0 cm/sec2 LV V1 mean: 70.7 cm/sec Ao V2 VTI: 30.6 cm AI P1/2t: 588.5 msec LV V1 VTI: 26.1 cm PA V2 max: 106.5 cm/sec TR max terry: 233.5 cm/sec TR max P.8 mmHg Interpretation Summary Mildly dilated left ventricle. The estimated ejection fraction is 40-45 %. Stage 1 diastolic dysfunction. Mildly dilated right ventricle. Mild global right ventricular systolic dysfunction. Trivial tricuspid valve insufficiency. Right ventricular systolic pressure estimated to be 27 mmHg. Mild (1+) aortic valve insufficiency. There are regional wall motion abnormalities as specified. There is no comparison study available. Ordering Physician: Don Chamorro Referring Physician: Bladimir Bazan Performed By: Ally Gann RDCS, RVT
[2020-01-08] MEDS: 0.9% Saline Lock 10 ML Syringe IV (20:42)
[2020-01-08] MEDS: 0.9% Normal Saline 1,000 ML 75 ML IV (20:42)
[2020-01-08] MEDS: Acetaminophen 325 MG Tablet 975 MG PO (20:56)
[2020-01-08 21:47] LABS: AST(SGOT) 15 U/L (15-37); Alanine Aminotransfer ALT/SGPT 16 U/L (16-61); Albumin, Serum 3.3 g/dL (3.2-5.0); Alkaline Phosphatase 90 U/L (45-117); Bilirubin, Direct 0.23 mg/dL (0.00-0.30); Globulin 3.6 g/dL (2.2-4.2); Protein, Total 6.9 g/dL (6.4-8.2)
[2020-01-08 22:41] VITALS: PULSE 67
[2020-01-08] MEDS: Metoprolol Tartrate 25 MG Tablet PO (22:41)
[2020-01-09] VITALS (8 sets, daily range): BP systolic 108–138; BP diastolic 55–99; PULSE 45–64; RESP 16–17; TEMP 36.8–36.9; O2SAT 96–97
[2020-01-09] MEDS: Ondansetron 4 MG/2 ML Vial IV (00:14)
--- NOTE | 2020-01-09 00:55 | EKG12_ITS ---
Test Reason : PRE OP Blood Pressure : / mmHG Vent. Rate : 061 BPM Atrial Rate : 061 BPM P-R Int : 192 ms QRS Dur : 098 ms QT Int : 456 ms P-R-T Axes : 027 -29 111 degrees QTc Int : 459 ms Normal sinus rhythm Lateral infarct , age undetermined Inferior infarct , age undetermined Abnormal ECG Confirmed by ELINA VAUGHN, DANIEL ([id number]), editorial cartoonist HILARIO PAK ([id number]) on 01/13/2020 8:04:50 AM Referred By: WARNER Confirmed By:DANIEL ANTOINE MD
[2020-01-09] MEDS: Mag Hydrox/Al Hydrox/Simeth 30 ML UDC PO (01:58)
--- NOTE | 2020-01-09 03:37 | EKG12_ITS ---
Test Reason : AM EKG Blood Pressure : / mmHG Vent. Rate : 043 BPM Atrial Rate : 043 BPM P-R Int : 226 ms QRS Dur : 100 ms QT Int : 514 ms P-R-T Axes : 018 -25 144 degrees QTc Int : 434 ms Marked sinus bradycardia with 1st degree A-V block Lateral infarct , age undetermined Inferior infarct , age undetermined Abnormal ECG When compared with ECG of 08-JAN-2020 19:54, MANUAL COMPARISON REQUIRED, DATA IS UNCONFIRMED Confirmed by ELINA VAUGHN, DANIEL ([id number]), book editor ASHER GUTIERREZ ([id number]) on 01/13/2020 3:44:42 PM Referred By: WARNER Confirmed By:DANIEL ANTOINE MD
[2020-01-09] MEDS: Acetaminophen 325 MG Tablet 975 MG PO ×3 (05:41→21:54)
--- NOTE | 2020-01-09 06:01 | NURSING ---
Dr. Naik called in to floor for update on pt. Aware pain minimal overnight, only complaints were nausea and reflux. Notified that CT for pelvis complete, stress test to be completed this morning for surgery clearance. Pt is NPO, Dr. Naik states to leave NPO through the day. Dr. Jacinto will see pt for consult this morning and surgery later in the day. He is to be notified should anything come up
[2020-01-09 06:23] LABS: Absolute Lymphocyte Count 1.38 X10^3/uL (0.83-4.51); Absolute Neutrophil Count 6.5 X10^3/uL (2.0-7.7); Basophil# 0.05 X10^3/uL; Basophil% 0.6 % (0-1); Eosinophil# 0.28 X10^3/uL; Eosinophils% 3.1 % (0-5); Hematocrit 37.4 % (40-54); Hemoglobin 11.7 g/dL (13.0-16.5); Lymphocyte # 1.38 X10^3/ul (4.0); Lymphocyte % 15.3 % (19-41); Mean Corp Hgb Conc 31.3 g/dL (32-36); Mean Corpuscular Hgb 31.8 pg (27.0-32.0); Mean Corpuscular Volume 101.6 fL (80-94); Mean Platelet Vol. 9.3 fl (6.2-12.0); Monocyte# 0.81 X10^3/uL; NRBC Flagged by Analyzer 0 % (0-5); Neutrophil # 6.47 X10^3/uL (2.7-7.7); Neutrophil % 71.7 % (47-70); Platelet Count 241 K/mm3 (150-450); RBC Distribution Width CV 13.3 % (11.6-14.6); Red Blood Count 3.68 M/mm3 (4.6-6.2)
[2020-01-09 06:58] LABS: ALB/GLOB Ratio 0.9 RATIO (0.9-2.4); AST(SGOT) 17 U/L (15-37); Alanine Aminotransfer ALT/SGPT 16 U/L (16-61); Albumin, Serum 3.3 g/dL (3.2-5.0); Alkaline Phosphatase 89 U/L (45-117); Anion Gap 5 (5-15); BUN 20 mg/dL (7-18); BUN/Creat Ratio 13.5 RATIO (10-20); Chloride 106 mmol/L (98-107); Creatinine, Serum 1.48 mg/dL (0.70-1.30); EST Glomerular Filtration Rate 49 mL/min (>60); Est Glom Filt Rate - Afr Amer 59 mL/min (>60); Estimated Creatinine Clearance 34.17 ml/min; Globulin 3.5 g/dL (2.2-4.2); Glucose 112 mg/dL (74-106); Potassium 4.7 mmol/L (3.5-5.1); Protein, Total 6.8 g/dL (6.4-8.2); Sodium Level 139 mmol/L (136-145)
--- NOTE | 2020-01-09 07:57 | NURSING ---
pt left for stress test
--- NOTE | 2020-01-09 08:00 | STEWCON_ITS ---
Reason For Study: Pre-Operative Stress Results Protocol: Dobutamine Stress Echo With Definity Maximum Predicted HR: 144 bpm Target HR: 122 bpm % Maximum Predicted HR: 88 % DurationHeart Rate Stage (mm:ss) (bpm) BP Comment Baseline 50 138/61No Chest Pain; 4 ML Diluted Definity DSE 10 MCG 3:00 48 147/69No Chest Pain DSE 20 MCG 3:00 69 152/61No Chest Pain DSE 30 MCG 3:00 115 147/65No Chest Pain DSE 40 MCG 1:27 127 126/69No Chest Pain Recovery 96 126/68No Chest Pain Stress Duration: 10:27 mm:ss Maximum Stress HR: 127 bpm METS: 1 Baseline Echocardiogram Findings The estimated ejection fraction is 40-45 %. Stress Echo Wall motion Data Resting WM Intermediate WM Stress WM Resting Wall Motion Wall Motion Stress Infero-Basal: Severely No regional wall motion Hypokinetic. abnormalities noted. Mid-Lateral : Hypokinetic. EKG Data The baseline ECG displays normal sinus rhythm. The patient was titrated from 10 mcg to a maximum of 40 mcg of dobutamine during the stress. The maximum heart rate attained was 130 beats per minute. This was 90% of maximum predicted heart rate. At peak infusion, upsloping ST changes only were noted, which did not meet the criteria for ischemia. No clinical angina was noted. Interpretation Summary The estimated ejection fraction is 40-45 %. Normal, adequate, dobutamine echocardiogram. Negative for ischemia by EKG and echocardiographic criteria. No anginal symptoms noted. Rare PVCs noted. Appropriate blood pressure response to dobutamine. Final LVEF is 65%. Test terminated due to the attainment target heart rate. Decrease sensitivity due to poor echo windows requiring Definity agent. The study was technically difficult. Contrast injection was performed. Ordering Physician: Carlyn Turcios Referring Physician: Don Chamorro Performed By: Ally Gann, RDCS, RVT
--- NOTE | 2020-01-09 08:44 | PCM.CONS.C ---
Problem List (1) Preop cardiovascular exam Status: Acute (2) CAD (coronary artery disease) Status: Chronic Qualifiers: Coronary Disease-Associated Artery/Lesion type: unspecified vessel or lesion type Associated angina: without angina (3) Hypertension Status: Chronic Reason for Consult Date of Consultation: 01/09/20 Reason for Consultation: Preop cardiac or stratification, coronary disease status post CABG, hypertension, hypercholesterolemia, LV dysfunction, History of Present Illness: The patient is a 74 year old M, previous patient of Dr. Reese in [place], with history of hypertension, hypercholesterolemia, nondiabetic, non-smoker, with coronary artery disease status post angioplasty in the distant past, followed by three-vessel bypass surgery at [facility] in 2011. According the patient he has not had a repeat catheterization since his bypass surgery. He reports that he had a surveillance stress test about a year ago, and reportedly required no additional evaluation. About 4 years ago the patient had a hip replacement, and was doing quite well up until he had a physical trip and fall, landing on his replaced hip, causing a hip displacement. 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 Prior to his fall he denied any chest pain, angina, shortness of breath, dyspnea on exertion, presyncope or syncopal episodes. Patient was taking and tolerating his medicines well. The patient is currently undergoing a preoperative evaluation with an echocardiogram followed by a dobutamine echocardiogram. [] Past Medical History Allergies/Adverse Reactions: Allergies ciprofloxacin [From Cipro] Adverse Reaction (Verified 01/08/20 16:16) Other PANCREATITIS ciprofloxacin HCl [From Cipro] Adverse Reaction (Verified 01/08/20 16:16) Other PANCREATITIS erythromycin base [Erythromycin Base] Adverse Reaction (Verified 01/08/20 16:16) Other LUMPS ON BODY potassium Adverse Reaction (Verified 01/08/20 16:16) Other POTASSIUM LEVELS ARE ELEVATED Home Medications: Ambulatory Orders Medication Instructions Recorded Aspirin [Aspirin, Baby] 81 mg PO DAILY 01/08/20 Celecoxib [Celebrex] 200 mg PO DAILY 01/08/20 Hydrocodone/Acetaminophen 1 - 2 tab PO Q8H PRN PRN 01/08/20 [Hydrocodon-Acetaminoph 7.5-325] Metoprolol Tartrate [Lopressor 25 mg PO DAILY 01/08/20 (Beta Tony)] Vitamin A 1 tab PO DAILY 01/08/20 Vitamin B Complex 1 tab PO DAILY 01/08/20 Vitamin C 1 tab PO DAILY 01/08/20 Vitamin D3 1 tab PO DAILY 01/08/20 Vitamin E 1 tab PO DAILY 01/08/20 Past Medical History (Chronic Problems): Chronic Problems CAD (coronary artery disease) (Chronic) Arthritis (Chronic) Hypertension (Chronic) Surgical History: coronary bypass surgery, total hip arthroplasty, - - s/p back surgeries Psychiatric History: No pertinent psych hx - *Family History Maternal History Items: Heart Disease Paternal History Items: Heart Disease Lives: Spouse/ Significant Other Smoking Status: Former smoker Tobacco Use: Non-smoker Alcohol: None Drugs: None Review of Systems - Review of Systems General: Denies: Fever, Night Sweats, Fatigue Cardiovascular: Denies: Chest Discomfort, Shortness of Breath, Orthopnea, PND, Peripheral Edema, Palpitations, Lightheadedness, Dizziness, Near Syncope, Syncope Respiratory: Denies: Cough, Sputum Production, Hemoptysis Gastrointestinal: Denies: Hematemesis, Hematochezia, Melena Genitourinary: Denies: Dysuria, Hematuria Skin: Denies: Rash Subjectve: Patient laying in bed, no acute distress. Objective: Vital Signs Temp Pulse Resp BP Pulse Ox 98.4 F 45 L 16 131/61 H 96 01/09/20 07:36 01/09/20 07:36 01/09/20 07:36 01/09/20 07:36 01/09/20 07:36 Oxygen Delivery Method Room Air Weight: 135 lb 4.8 oz Body Mass Index (BMI) 23.9 Intake and Output for Last 24 Hours 01/07/20 01/08/20 01/09/20 23:59 23:59 23:59 Intake Total 1263.75 / 1263.75 Output Total 675 / 675 Balance 588.75 / 588.75 General: Awake, Alert, Oriented x 3 HEENT: PERRL, EOMI, Sclera Non Icteric Neck: Supple, Good ROM, No Lymph Node Enlargement Lungs: Clear to auscultation Cardiovascular: Regular Rhythm, Normal S2, No Rubs, No Gallops Murmur Murmur: Grade 2/6, Crescendo-Decrescendo Vascular: No Carotid Bruits, Normal Femoral Pulses, Normal Radial Pulses, Normal Dorsalis Pedal Pulse, Normal Posterior Tibial Pulses Abdomen: Bowel Sounds Present, Soft, Non Tender, No HSM, No Organomegaly Extremities: No Cyanosis, No Clubbing, No edema Neurological: No Focal Motor or Sensory Deficit 01/08/20 17:00: WBC 9.5, RBC 4.16 L, Hgb 13.2, Hct 40.2, MCV 96.6 H, MCH 31.7, MCHC 32.8, Plt Count 277, MPV 9.5, Immature Gran % (Auto) 0.400, Neut % (Auto) 72.7 H, Lymph % (Auto) 16.5 L, [place] % (Auto) 8.4, Eos % (Auto) 1.7, Baso % (Auto) 0.3, Absolute Neuts (auto) 6.9, Nucleated RBC % 0 01/08/20 17:00: Sodium 137, Potassium 4.2, Chloride 104, Carbon Dioxide 24.0, Anion Gap 9, BUN 23 H, Creatinine 1.54 H, Est GFR (MDRD) Af Amer 57 L, Est GFR (MDRD) Non-Af 47 L, BUN/Creatinine Ratio 14.9, Glucose 113 H, Calcium 9.7 01/08/20 21:08: Total Bilirubin 0.90, Direct Bilirubin 0.23, Troponin I 0.018 01/09/20 06:10: WBC 9.0, RBC 3.68 L, Hgb 11.7 L, Hct 37.4 L, MCV 101.6 H D, MCH 31.8, MCHC 31.3 L, Plt Count 241, MPV 9.3, Immature Gran % (Auto) 0.300, Neut % (Auto) 71.7 H, Lymph % (Auto) 15.3 L, [place] % (Auto) 9.0, Eos % (Auto) 3.1, Baso % (Auto) 0.6, Absolute Neuts (auto) 6.5, Nucleated RBC % 0 01/09/20 06:10: Sodium 139, Potassium 4.7, Chloride 106, Carbon Dioxide 28.0, Anion Gap 5, BUN 20 H, Creatinine 1.48 H, Est GFR (MDRD) Af Amer 59 L, Est GFR (MDRD) Non-Af 49 L, BUN/Creatinine Ratio 13.5, Glucose 112 H, Calcium 9.0, Total Bilirubin 1.20 H Rhythm: EKG: ECHO: Stress Test: Cardiac Cath: PCI: CT Surgery: Holter monitor: EPS: PPM: CXR: Chest CT Scan: Assessment/Plan 1. Coronary artery disease: The patient denied any anginal symptoms, shortness of breath or equivalents, presyncope or syncope or palpitations. He denied any syncopal episode and had a true mechanical fall causing hip displacement of his previously replaced hip 4 years ago. Patient reports that he had bypass surgery about 12 years ago, and a stress test about a year or so ago but cannot recall its results. As part of his cardiac wrist ratification I recommended he undergo a 2D echo with Doppler followed by a dobutamine echocardiogram to evaluate for possible ischemia. If his stress test is grossly abnormal, he may require a diagnostic coronary angiogram with graft angiography prior to his hip surgery. If however it is within normal limits, he will be deemed at low risk for noncardiac surgery and may proceed. In the meantime we will continue his baby aspirin and metoprolol. We will add losartan once he is completed with his surgery. Would recommend judicious use of IV fluids given his preliminary evaluation with LV dysfunction, and match his I's and O's with IV Lasix to avoid acute on chronic heart failure. 2. Hyperlipidemia: Recommend obtaining a fasting lipid profile. We will start Lipitor milligrams p.o. nightly and titrate up from there. His LDL should be less than 70. 3. Thank you very much for the opportunity to participate in the cardiac care of your patient. Consultation time took place between 815 and 8:45 AM. Inpatient E&M: 46869 Init Hosp L2
--- NOTE | 2020-01-09 09:33 | NURSING ---
pt returned from stress test
[2020-01-09 09:43] LABS: Cholesterol 173 mg/dL (200); High Density Lipoprotein 37 mg/dL; Triglycerides 130 mg/dL; Very Low Density Lipoprotein 26 mg/dL (5-40)
--- NOTE | 2020-01-09 10:29 | PCM.CONS.GEN ---
Problem List (1) Displaced dome fracture of right acetabulum Status: Acute Qualifiers: Encounter type: initial encounter Fracture type: closed Qualified Code(s): S32.481A - Displaced dome fracture of right acetabulum, initial encounter for closed fracture Reason for Consult History of Present Illness: The patient is a 74 year old M who underwent a previous right total hip arthroplasty posterior approach by Dr. Dinesh Carias on June 24, 2013. Patient states approximately 9 months ago he was working in his yard when a fall occurred landing on his right hip. Patient had a CT scan in July 2019 at [facility] which did not reveal fracture. Patient states he has had ongoing pain since the fall 9 months ago. 4 days ago patient was walking when he felt a pop and immediate pain in the right hip. He tried proceeding with normal activities but had a difficult time with bearing weight on his right lower extremity. He came to the emergency room on January 07/2020 in which x-rays and CT scan were obtained. Did reveal patient fractured through the wall of the acetabulum with the implant migrating. Patient states he occasionally has some numbness and tingling in the right leg at this time. He also has history of previous lumbar fusion. Patient also reports having injection into the right hip over the anterior and lateral aspect from pain management Dr. Sena approximately 2 weeks ago with no relief in symptoms. Cardiology has been consulted due to change in EKG. Patient this morning underwent an echocardiogram to evaluate for possible ischemia. We are waiting for clearance from cardiology whether patient will need to proceed with a diagnostic coronary angiogram prior to the hip surgery. Anesthesia has been contacted for chart review with the patient for possible revision right total hip arthroplasty. Patient currently denies chest pain or shortness of breath. He has increased pain with movement of the right lower extremity. Patient also has history of hypertension, prostate cancer in remission. Patient has had previous heart stents in the past. Past Medical History Past Medical History (Chronic Problems): Chronic Problems CAD (coronary artery disease) (Chronic) Arthritis (Chronic) Hypertension (Chronic) Allergies ciprofloxacin [From Cipro] Adverse Reaction (Verified 01/08/20 16:16) Other PANCREATITIS ciprofloxacin HCl [From Cipro] Adverse Reaction (Verified 01/08/20 16:16) Other PANCREATITIS erythromycin base [Erythromycin Base] Adverse Reaction (Verified 01/08/20 16:16) Other LUMPS ON BODY potassium Adverse Reaction (Verified 01/08/20 16:16) Other POTASSIUM LEVELS ARE ELEVATED Home Medications: Ambulatory Orders Medication Instructions Recorded Aspirin [Aspirin, Baby] 81 mg PO DAILY 01/08/20 Celecoxib [Celebrex] 200 mg PO DAILY 01/08/20 Hydrocodone/Acetaminophen 1 - 2 tab PO Q8H PRN PRN 01/08/20 [Hydrocodon-Acetaminoph 7.5-325] Metoprolol Tartrate [Lopressor 25 mg PO DAILY 01/08/20 (Beta Tony)] Vitamin A 1 tab PO DAILY 01/08/20 Vitamin B Complex 1 tab PO DAILY 01/08/20 Vitamin C 1 tab PO DAILY 01/08/20 Vitamin D3 1 tab PO DAILY 01/08/20 Vitamin E 1 tab PO DAILY 01/08/20 Surgical History: coronary bypass surgery, total hip arthroplasty, - - s/p back surgeries Psychiatric History: No pertinent psych hx Lives: Spouse/ Significant Other Smoking Status: Former smoker Tobacco Use: Non-smoker Alcohol: None Drugs: None - *Family History Maternal History Items: Heart Disease Paternal History Items: Heart Disease Review of Systems Musculoskeletal: Reports: - - Complains of right hip pain Patient Problems: Active and Suspected Problems Displaced dome fracture of right acetabulum (Acute) Prostate cancer (Suspected) Preop cardiovascular exam (Acute) Objective: Vital signs stable and afebrile. Patient's right lower extremity is shortened while laying in bed when compared to the left. Previous incision from right total hip arthroplasty is without erythema or signs of infection. No appreciable ecchymosis. Patient currently has minimal tenderness to palpation over the lateral aspect of the right hip. Patient is able to plantarflex and dorsiflex actively. Sensation is intact to light touch to saphenous, sural, superficial and deep peroneal, and tibial distribution. Negative Homans bilaterally, negative signs and symptoms of DVT. - Physical Exam Vitals/I&O's: Vital Signs Temp Pulse Resp BP Pulse Ox 98.4 F 52 L 16 131/61 H 96 01/09/20 07:36 01/09/20 09:54 01/09/20 07:36 01/09/20 07:36 01/09/20 07:36 Oxygen Delivery Method Room Air Weight: 61.371 kg Body Mass Index (BMI) 23.9 Intake and Output for Last 24 Hours 01/07/20 01/08/20 01/09/20 23:59 23:59 23:59 Intake Total 1263.75 / 1263.75 Output Total 675 / 675 Balance 588.75 / 588.75 General: Alert, Oriented x3, Cooperative Laboratory Results 01/08/20 17:00: WBC 9.5, RBC 4.16 L, Hgb 13.2, Hct 40.2, MCV 96.6 H, MCH 31.7, MCHC 32.8, RDW Std Deviation 46.5 H, RDW Coeff of Eric 13.2, Plt Count 277, MPV 9.5, Immature Gran % (Auto) 0.400, Neut % (Auto) 72.7 H, Lymph % (Auto) 16.5 L, [place] % (Auto) 8.4, Eos % (Auto) 1.7, Baso % (Auto) 0.3, Absolute Neuts (auto) 6.9, Absolute Lymphs (auto) 1.57, Nucleated RBC % 0, ESR 22 H 01/08/20 17:00: Sodium 137, Potassium 4.2, Chloride 104, Carbon Dioxide 24.0, Anion Gap 9, BUN 23 H, Creatinine 1.54 H, Estim Creat Clear Calc 32.84, Est GFR (MDRD) Af Amer 57 L, Est GFR (MDRD) Non-Af 47 L, BUN/Creatinine Ratio 14.9, Glucose 113 H, Calcium 9.7, C-React Prot Ext Range 6.89 H 01/08/20 19:15: COVID-19 ([facility]ANSEL) Negative 01/08/20 21:08: Total Bilirubin 0.90, Direct Bilirubin 0.23, AST 15, ALT 16, Alkaline Phosphatase 90, Troponin I 0.018, Total Protein 6.9, Albumin 3.3, Globulin 3.6 01/09/20 06:10: WBC 9.0, RBC 3.68 L, Hgb 11.7 L, Hct 37.4 L, MCV 101.6 H D, MCH 31.8, MCHC 31.3 L, RDW Std Deviation 49.0 H, RDW Coeff of Eric 13.3, Plt Count 241, MPV 9.3, Immature Gran % (Auto) 0.300, Neut % (Auto) 71.7 H, Lymph % (Auto) 15.3 L, [place] % (Auto) 9.0, Eos % (Auto) 3.1, Baso % (Auto) 0.6, Absolute Neuts (auto) 6.5, Absolute Lymphs (auto) 1.38, Nucleated RBC % 0 01/09/20 06:10: Sodium 139, Potassium 4.7, Chloride 106, Carbon Dioxide 28.0, Anion Gap 5, BUN 20 H, Creatinine 1.48 H, Estim Creat Clear Calc 34.17, Est GFR (MDRD) Af Amer 59 L, Est GFR (MDRD) Non-Af 49 L, BUN/Creatinine Ratio 13.5, Glucose 112 H, Calcium 9.0, Total Bilirubin 1.20 H, AST 17, ALT 16, Alkaline Phosphatase 89, Total Protein 6.8, Albumin 3.3, Globulin 3.5, Albumin/Globulin Ratio 0.9 01/09/20 06:10: Triglycerides 130, Cholesterol 173, LDL Cholesterol 110, VLDL Cholesterol 26, HDL Cholesterol 37 L Current Medications Acetaminophen (Tylenol) 975 mg PO TID [facility] Last Admin: 01/09/20 05:41 Dose: 975 mg Documented by: Al Hydroxide/Mg Hydroxide (Mylanta Ii) 30 ml PO Q6H PRN PRN PRN Reason: Gastric Burning Last Admin: 01/09/20 01:58 Dose: 30 ml Documented by: Aspirin (Aspirin, Baby) 81 mg PO DAILY@0800 [facility] Atorvastatin Calcium (Lipitor) 40 mg PO QHS [facility] Bisacodyl (Dulcolax) 5 mg PO DAILY PRN PRN PRN Reason: Constipation Enoxaparin Sodium (Lovenox) 30 mg SC DAILY [facility] Metoprolol Tartrate (Lopressor (Beta Tony)) 25 mg PO BID [facility] Last Admin: 01/09/20 09:54 Dose: Not Given Documented by: Morphine Sulfate () 2 mg IV Q3H PRN PRN PRN Reason: Pain Score 6-10/10 Nutritional Formula (Lactose Free) (Ensure Enlive) 120 ml PO 4X/DAY [facility] Last Admin: 01/09/20 07:40 Dose: Not Given Documented by: Ondansetron HCl (Zofran) 4 mg IV Q8H PRN PRN PRN Reason: NAUSEA/VOMITING Last Admin: 01/09/20 00:14 Dose: 4 mg Documented by: Oxycodone HCl (Oxyir) 5 mg PO Q4H PRN PRN PRN Reason: Pain Score 4-5/10 Psyllium Hydrophilic Mucilloid (Metamucil) 1 packet PO DAILY PRN PRN PRN Reason: Constipation Senna/Docusate Sodium (Senokot-S, Desirae-Colace) 2 tablet PO BID PRN PRN PRN Reason: Constipation Sodium Chloride () 10 - 40 ml IV UD PRN PRN Reason: SALINE FLUSH Last Admin: 01/08/20 20:42 Dose: 10 ml Documented by: Assessment/Plan All Active Problems Displaced dome fracture of right acetabulum (Acute) Preop cardiovascular exam (Acute) Diagnostic studies: X-ray was reviewed from [facility] as well as CT scan which does reveal migration of the acetabular implant past Mendez's line. Patient has eroded through the medial wall of the acetabulum. There is a medial wall fracture as well as posterior column fracture associated with pelvic dissociation. Right leg is significantly shortened. There is also evidence of spinal fusion hardware lumbar spine. X-rays and CT scan were discussed with Dr. Elan Jacinto. Impression/plan: 1. Presence of right total hip arthroplasty with medial wall and posterior column fracture associated with pelvic dissociation: Recommend surgical intervention 2. Previous lumbar fusion 3. Hypertension 4. Coronary artery disease with previous bypass surgery Case was discussed with Dr. Elan Jacinto. At this time we are awaiting recommendations from cardiology and anesthesia proceeding forward with a right hip surgery. Patient's was present during evaluation. I discussed with him and his risks of surgery. At this time once we have clearance from medicine and cardiology as well as anesthesia we could then proceed with possible surgery as early as tomorrow. We also discussed if he is too high risk transferring to another facility. Patient will remain nonweightbearing on the right lower extremity. Recommend avoiding patient laying on same side to pressure ulcers and recommend repositioning change every 1-2 hours. They can continue with pain medications as needed. Patient will continue with ice over the right hip as needed. He is currently n.p.o. waiting on recommendations from cardiology. I also discussed postoperative complications and restrictions with long recovery. They did voice understanding. Dr. Elan Jacinto will meet with family and patient prior to proceeding with any surgery for appropriate consent form.
[2020-01-09] MEDS: Morphine 2 MG/ML Syringe IV ×2 (11:32→20:21)
[2020-01-09] MEDS: 0.9% Saline Lock 10 ML Syringe IV ×2 (11:32→20:22)
--- NOTE | 2020-01-09 13:58 | PN_ITS ---
<Florin Dove - Last Filed: 01/09/20 13:58> Patient Problems: Active and Suspected Problems Displaced dome fracture of right acetabulum (Acute) Prostate cancer (Suspected) Preop cardiovascular exam (Acute) Reason for Visit: hip pain Subjective: No pain when he does not move, however small movements are very painful. Pt unable to weight bear or walk. No SOB/cough. No CP/pressure/palp. No LH/Dizziness. No LE edema. No fever/chills. No nausea/vomiting/diarrhea. Vitals/I&O's: Vital Signs Temp Pulse Resp BP Pulse Ox 98.5 F 55 L 16 108/62 97 01/09/20 11:54 01/09/20 11:54 01/09/20 11:54 01/09/20 11:54 01/09/20 11:54 Oxygen Delivery Method Room Air Weight: 135 lb 2.294 oz Body Mass Index (BMI) 23.9 Intake and Output for Last 24 Hours 01/07/20 01/08/20 01/09/20 23:59 23:59 23:59 Intake Total 1263.75 / 1263.75 Output Total 1075 / 1075 Balance 188.75 / 188.75 General: Alert, Oriented x3, Cooperative HEENT: Atraumatic, PERRLA, EOMI, Normocephalic Neck: Supple, No JVD, Negative Carotid Bruits Lungs: Clear to auscultation, Normal air movement Cardiovascular: Regular rate, No murmurs Abdomen: Bowel Sounds Present, Soft, Non Tender Extremities: No edema, Capillary Refill Less than 3 Seconds Skin: No rashes, No breakdown Musculoskeletal: No Tenderness to Palpation of Joints or Extremities Neurological: Cranial nerves II-XII grossly intact Psych/Mental Status: Normal Affect, Appropriate, Alert and oriented to time, place, person, mood and affect Laboratory Results 01/08/20 17:00: WBC 9.5, RBC 4.16 L, Hgb 13.2, Hct 40.2, MCV 96.6 H, MCH 31.7, MCHC 32.8, RDW Std Deviation 46.5 H, RDW Coeff of Eric 13.2, Plt Count 277, MPV 9.5, Immature Gran % (Auto) 0.400, Neut % (Auto) 72.7 H, Lymph % (Auto) 16.5 L, [place] % (Auto) 8.4, Eos % (Auto) 1.7, Baso % (Auto) 0.3, Absolute Neuts (auto) 6.9, Absolute Lymphs (auto) 1.57, Nucleated RBC % 0, ESR 22 H 01/08/20 17:00: Sodium 137, Potassium 4.2, Chloride 104, Carbon Dioxide 24.0, Anion Gap 9, BUN 23 H, Creatinine 1.54 H, Estim Creat Clear Calc 32.84, Est GFR (MDRD) Af Amer 57 L, Est GFR (MDRD) Non-Af 47 L, BUN/Creatinine Ratio 14.9, Glucose 113 H, Calcium 9.7, C-React Prot Ext Range 6.89 H 01/08/20 19:15: COVID-19 ([facility]) Negative 01/08/20 21:08: Total Bilirubin 0.90, Direct Bilirubin 0.23, AST 15, ALT 16, Alkaline Phosphatase 90, Troponin I 0.018, Total Protein 6.9, Albumin 3.3, Globulin 3.6 01/09/20 06:10: WBC 9.0, RBC 3.68 L, Hgb 11.7 L, Hct 37.4 L, MCV 101.6 H D, MCH 31.8, MCHC 31.3 L, RDW Std Deviation 49.0 H, RDW Coeff of Eric 13.3, Plt Count 241, MPV 9.3, Immature Gran % (Auto) 0.300, Neut % (Auto) 71.7 H, Lymph % (Auto) 15.3 L, [place] % (Auto) 9.0, Eos % (Auto) 3.1, Baso % (Auto) 0.6, Absolute Neuts (auto) 6.5, Absolute Lymphs (auto) 1.38, Nucleated RBC % 0 01/09/20 06:10: Sodium 139, Potassium 4.7, Chloride 106, Carbon Dioxide 28.0, Anion Gap 5, BUN 20 H, Creatinine 1.48 H, Estim Creat Clear Calc 34.17, Est GFR (MDRD) Af Amer 59 L, Est GFR (MDRD) Non-Af 49 L, BUN/Creatinine Ratio 13.5, Glucose 112 H, Calcium 9.0, Total Bilirubin 1.20 H, AST 17, ALT 16, Alkaline Phosphatase 89, Total Protein 6.8, Albumin 3.3, Globulin 3.5, Albumin/Globulin Ratio 0.9 01/09/20 06:10: Triglycerides 130, Cholesterol 173, LDL Cholesterol 110, VLDL Cholesterol 26, HDL Cholesterol 37 L Current Medications Acetaminophen (Tylenol) 975 mg PO TID [facility] Last Admin: 01/09/20 05:41 Dose: 975 mg Documented by: Al Hydroxide/Mg Hydroxide (Mylanta Ii) 30 ml PO Q6H PRN PRN PRN Reason: Gastric Burning Last Admin: 01/09/20 01:58 Dose: 30 ml Documented by: Aspirin (Aspirin, Baby) 81 mg PO DAILY@0800 [facility] Atorvastatin Calcium (Lipitor) 40 mg PO QHS [facility] Bisacodyl (Dulcolax) 5 mg PO DAILY PRN PRN PRN Reason: Constipation Enoxaparin Sodium (Lovenox) 30 mg SC DAILY [facility] Metoprolol Tartrate (Lopressor (Beta Tony)) 25 mg PO BID [facility] Last Admin: 01/09/20 09:54 Dose: Not Given Documented by: Morphine Sulfate () 2 mg IV Q3H PRN PRN PRN Reason: Pain Score 6-10/10 Last Admin: 01/09/20 11:32 Dose: 2 mg Documented by: Nutritional Formula (Lactose Free) (Ensure Enlive) 120 ml PO 4X/DAY [facility] Last Admin: 01/09/20 07:40 Dose: Not Given Documented by: Ondansetron HCl (Zofran) 4 mg IV Q8H PRN PRN PRN Reason: NAUSEA/VOMITING Last Admin: 01/09/20 00:14 Dose: 4 mg Documented by: Oxycodone HCl (Oxyir) 5 mg PO Q4H PRN PRN PRN Reason: Pain Score 4-5/10 Psyllium Hydrophilic Mucilloid (Metamucil) 1 packet PO DAILY PRN PRN PRN Reason: Constipation Senna/Docusate Sodium (Senokot-S, Desirae-Colace) 2 tablet PO BID PRN PRN PRN Reason: Constipation Sodium Chloride () 10 - 40 ml IV UD PRN PRN Reason: SALINE FLUSH Last Admin: 01/09/20 11:32 Dose: 10 ml Documented by: STROKE Vital Signs/Narrative: Vital Signs Temp Pulse Resp BP Pulse Ox 01/09/20 11:54 98.5 F 55 L 16 108/62 97 Medical Necessity - Tobacco Use Smoking Status: Former smoker Tobacco Use: Non-smoker Assessment/Plan All Active Problems Displaced dome fracture of right acetabulum (Acute) Preop cardiovascular exam (Acute) 1. Right hip displaced hardware - severe pain and inability to ambulate - ortho following, will need surgical repair. cardiology c/s for surgical clearance. 2. Hx CAD, prior CABG - stress test shows ejection fraction of 40 to 45%, no ischemia. Mild fish. 3. HTN - controlled. 4. History of prostate cancer-in remission. 5. Probable CKD stage III-stable DVT ppx: Lovenox Discharge planning-the patient will likely need SNF at discharge This patient was seen by Florin Dove PA-C under the supervision of Doctor Nate. <Peter Sullivan F - Last Filed: 01/09/20 16:44> Vitals/I&O's: Vital Signs Temp Pulse Resp BP Pulse Ox 98.2 F 55 L 16 120/55 L 96 01/09/20 14:52 01/09/20 14:52 01/09/20 14:52 01/09/20 14:52 01/09/20 14:52 Oxygen Delivery Method Room Air Weight: 135 lb 2.294 oz Body Mass Index (BMI) 23.9 Intake and Output for Last 24 Hours 01/07/20 01/08/20 01/09/20 23:59 23:59 23:59 Intake Total 1263.75 / 1263.75 Output Total 1075 / 1075 Balance 188.75 / 188.75 Laboratory Results 01/08/20 17:00: WBC 9.5, RBC 4.16 L, Hgb 13.2, Hct 40.2, MCV 96.6 H, MCH 31.7, MCHC 32.8, RDW Std Deviation 46.5 H, RDW Coeff of Eric 13.2, Plt Count 277, MPV 9.5, Immature Gran % (Auto) 0.400, Neut % (Auto) 72.7 H, Lymph % (Auto) 16.5 L, [place] % (Auto) 8.4, Eos % (Auto) 1.7, Baso % (Auto) 0.3, Absolute Neuts (auto) 6.9, Absolute Lymphs (auto) 1.57, Nucleated RBC % 0, ESR 22 H 01/08/20 17:00: Sodium 137, Potassium 4.2, Chloride 104, Carbon Dioxide 24.0, Anion Gap 9, BUN 23 H, Creatinine 1.54 H, Estim Creat Clear Calc 32.84, Est GFR (MDRD) Af Amer 57 L, Est GFR (MDRD) Non-Af 47 L, BUN/Creatinine Ratio 14.9, Glucose 113 H, Calcium 9.7, C-React Prot Ext Range 6.89 H 01/08/20 19:15: COVID-19 ([facility]) Negative 01/08/20 21:08: Total Bilirubin 0.90, Direct Bilirubin 0.23, AST 15, ALT 16, Alkaline Phosphatase 90, Troponin I 0.018, Total Protein 6.9, Albumin 3.3, Globulin 3.6 01/09/20 06:10: WBC 9.0, RBC 3.68 L, Hgb 11.7 L, Hct 37.4 L, MCV 101.6 H D, MCH 31.8, MCHC 31.3 L, RDW Std Deviation 49.0 H, RDW Coeff of Eric 13.3, Plt Count 241, MPV 9.3, Immature Gran % (Auto) 0.300, Neut % (Auto) 71.7 H, Lymph % (Auto) 15.3 L, [place] % (Auto) 9.0, Eos % (Auto) 3.1, Baso % (Auto) 0.6, Absolute Neuts (auto) 6.5, Absolute Lymphs (auto) 1.38, Nucleated RBC % 0 01/09/20 06:10: Sodium 139, Potassium 4.7, Chloride 106, Carbon Dioxide 28.0, Anion Gap 5, BUN 20 H, Creatinine 1.48 H, Estim Creat Clear Calc 34.17, Est GFR (MDRD) Af Amer 59 L, Est GFR (MDRD) Non-Af 49 L, BUN/Creatinine Ratio 13.5, Glucose 112 H, Calcium 9.0, Total Bilirubin 1.20 H, AST 17, ALT 16, Alkaline Ph osphatase 89, Total Protein 6.8, Albumin 3.3, Globulin 3.5, Albumin/Globulin Ratio 0.9 01/09/20 06:10: Triglycerides 130, Cholesterol 173, LDL Cholesterol 110, VLDL Cholesterol 26, HDL Cholesterol 37 L Current Medications Acetaminophen (Tylenol) 975 mg PO TID [facility] Last Admin: 01/09/20 14:30 Dose: 975 mg Documented by: Al Hydroxide/Mg Hydroxide (Mylanta Ii) 30 ml PO Q6H PRN PRN PRN Reason: Gastric Burning Last Admin: 01/09/20 01:58 Dose: 30 ml Documented by: Aspirin (Aspirin, Baby) 81 mg PO DAILY@0800 [facility] Atorvastatin Calcium (Lipitor) 40 mg PO QHS [facility] Bisacodyl (Dulcolax) 5 mg PO DAILY PRN PRN PRN Reason: Constipation Enoxaparin Sodium (Lovenox) 30 mg SC DAILY [facility] Metoprolol Tartrate (Lopressor (Beta Tony)) 25 mg PO BID [facility] Last Admin: 01/09/20 09:54 Dose: Not Given Documented by: Morphine Sulfate () 2 mg IV Q3H PRN PRN PRN Reason: Pain Score 6-10/10 Last Admin: 01/09/20 11:32 Dose: 2 mg Documented by: Nutritional Formula (Lactose Free) (Ensure Enlive) 120 ml PO 4X/DAY [facility] Last Admin: 01/09/20 14:30 Dose: 120 ml Documented by: Ondansetron HCl (Zofran) 4 mg IV Q8H PRN PRN PRN Reason: NAUSEA/VOMITING Last Admin: 01/09/20 00:14 Dose: 4 mg Documented by: Oxycodone HCl (Oxyir) 5 mg PO Q4H PRN PRN PRN Reason: Pain Score 4-5/10 Last Admin: 01/09/20 14:33 Dose: 5 mg Documented by: Psyllium Hydrophilic Mucilloid (Metamucil) 1 packet PO DAILY PRN PRN PRN Reason: Constipation Senna/Docusate Sodium (Senokot-S, Desirae-Colace) 2 tablet PO BID PRN PRN PRN Reason: Constipation Sodium Chloride () 10 - 40 ml IV UD PRN PRN Reason: SALINE FLUSH Last Admin: 01/09/20 11:32 Dose: 10 ml Documented by: STROKE Vital Signs/Narrative: Vital Signs Temp Pulse Resp BP Pulse Ox 01/09/20 14:52 98.2 F 55 L 16 120/55 L 96 Addendum: Dr. Sullivan I personally examined the patient and reviewed the chart. I agree with the above. 34-year-old male had a previous right total hip in 2012 presents after a fall on the right side about 9 months ago. He had some pain and went to the ER which did not show any acute fracture therefore he was discharged home. He is to continue ambulating and then 4 days ago he felt a pop and much more significant pain. He is unable to lift the leg and is extremely tender to palpation today. He had some EKG changes therefore cardiology was consulted for evaluation they did a dobutamine stress test which did not demonstrate any ischemia and therefore they felt he was low risk for surgery. Will consult PT/OT for evaluation to help before and after surgery and he will likely need a half-way facility at discharge. Hopefully we can proceed with surgery tomorrow however that depends on the OR schedule and if necessary could potentially keep here until Monday for surgery. Inpatient E&M: 62071 Subs Hosp L2
--- NOTE | 2020-01-09 14:05 | CASEMGMT ---
Social Work SW met with pt and completed assessment. Pt lives at home with in a one story home with 3 steps in. Prior to injury, pt was independent with ADLs and IADLs. Discussed discharge plans with pt and he is aware that he will need rehab prior to returning home and with pt permission, phone call to pt who also agrees pt will need placement for rehab after surgery. PCP and demographics confirmed. Specialists: Dr. Plaza, cardiology, Dr. Ambrocio pain management Insurance: MCR, no secondary Living Will/HPOA: Pt is not certain if he has a living will or HCPOA. Pt declines assistance from SW to complete. LNOK: Kathy Pierre Living Arrangements: home with in one story home with 3 steps in Transportation: Pt states drives self DME: walker, wheelchair shower chair List of area SNF's provided to pt and SW explained to pt and that Medicare covers days 1-20 100% and starting on day 21 there is a daily copay of $170. SW discussed Medicaid with pt and and indicates pt would not be eligible. SW did explain that if pt is non weight bearing, the restriction may not be lifted after 20 days. Pt and to discuss discharge options and SW will follow up tomorrow. NANCY Lundy
[2020-01-09] MEDS: oxyCODONE 5 MG Tablet PO (14:33)
[2020-01-09] MEDS: Atorvastatin Calcium 40 MG Tablet PO (21:53)
[2020-01-09] MEDS: Metoprolol Tartrate 25 MG Tablet PO (21:54)
[2020-01-10] VITALS (14 sets, daily range): BP systolic 94–148; BP diastolic 55–69; PULSE 52–88; RESP 16; TEMP 36.4–37.2; O2SAT 94–100; BMI 23.9; BMI 24.0
[2020-01-10] MEDS: Morphine 2 MG/ML Syringe IV ×2 (00:21→20:40)
[2020-01-10] MEDS: Mag Hydrox/Al Hydrox/Simeth 30 ML UDC PO (00:21)
[2020-01-10] MEDS: 0.9% Saline Lock 10 ML Syringe IV ×2 (00:22→20:40)
[2020-01-10] MEDS: Metoprolol Tartrate 25 MG Tablet PO ×2 (10:37→21:02)
--- NOTE | 2020-01-10 11:30 | NURSING ---
PT TO OR VIA BED.
--- NOTE | 2020-01-10 11:32 | CASEMGMT ---
Addendum entered by Jovita Schaffer 01/10/20 13:48: SW did make referral to rehab, as pt had indicated yesterday may be interested in rehab. As per Rosa Elena, they would be able to take pt in rehab Monday or after, depending on how pt does with therapy. SW will continue to follow. JULI Banuelos Original Note: SW spoke w/pt and prior to surgery, pt is leaving now to the OR. SW explained will ask SW to see him tomorrow after surgery and after PT to see what would be appropriate as far as discharge plan. Pt and state understanding. SW will continue to follow. JULI Banuelos
[2020-01-10] MEDS: Gabapentin 600 MG Tablet PO (11:50)
[2020-01-10] MEDS: Acetaminophen 500 MG Tablet 1000 MG PO ×2 (11:50→21:03)
[2020-01-10] MEDS: Lactated Ringers 1,000 ML 999 ML IV ×2 (11:50→13:31)
--- NOTE | 2020-01-10 12:30 | RAD_ITS ---
STUDY: X-RAY - PELVIS AND RIGHT HIP REASON FOR EXAM: Male, 74 years old. ANTERIOR HIP REVISION TECHNIQUE: Fluoroscopic intraoperative images. COMPARISON: None. FINDINGS: Intraoperative fluoroscopic images demonstrate placement of right total hip arthroplasty. For additional details refer to operative report. RAD/Hip 1 view with Pelvis IMPRESSION: Intraoperative fluoroscopy of right hip arthroplasty revision. Electronically Signed: Radhames Denton, at 16:04 EDT Tel , Service support ,
--- NOTE | 2020-01-10 12:30 | HIP_PTH ---
PATIENT: UNA LOZADA LOC: MS3 U#:[id number] AGE/SX: 74/M ROOM: FL310 RE01/08/[address]: Dr. Levi Lucas MD : 1945 BED: 1 DIS: 01/13/2020 SPEC #: [id number] RECD: 01/13/20 07:44 STATUS: FREDDIE REQ #: [id number] JONO: 01/10/20 12:[address]: Elan Jacinto DEPT: SURGICAL PATHOLOGY RECD BY: Winter Michaud ENTERED: 01/13/20 09:12 SP TYPE: TOTAL HIP OTHR DR: MD Dr. Don Luna MD Dr. Prakash Chand, MD Dr. Robert Lindsay, DO Tissues: Hip, NOS Procedures: Decalcification bone/plaque Surgery Specimen Level IV HEADER OPERATION: Total hip anterior revision PRE-OP DIAGNOSIS: Displaced dome fracture of right acetabulum TISSUE SUBMITTED: Acetabulum MICROSCOPIC DIAGNOSIS Right acetabulum, biopsy: Reparative and reactive change and osteonecrosis. AM:carli 01/16/20 MICROSCOPIC DESCRIPTION Slides are reviewed. GROSS DESCRIPTION Received in fixative is one container labeled with the patient's name and designated acetabulum. The specimen consists of multiple irregular fragments of humphrey bone that in aggregate measure 4 x 3 x 1 cm. Manager Auto portions are submitted in one cassette after decalcification. / AM:carli 01/13/20 TC:5 [facility]: [id number], [id number]
[2020-01-10] MEDS: Cefazolin 2 GM in 0.9% Normal Saline 100 ML IV (12:55)
[2020-01-10] MEDS: dexAMETHasone 10 MG/ML Vial IV (13:00)
--- NOTE | 2020-01-10 13:02 | PN_ITS ---
<Florin Dove - Last Filed: 01/10/20 13:02> Patient Problems: Active and Suspected Problems Displaced dome fracture of right acetabulum (Acute) Prostate cancer (Suspected) Preop cardiovascular exam (Acute) Reason for Visit: Right hip fracture Subjective: Pain improved. No fevers or chills. No shortness of breath or cough. Patient waiting to go to surgery today. Patient unable to weight-bear or ambulate still. No numbness or tingling in the infected extremities. Vitals/I&O's: Vital Signs Temp Pulse Resp BP Pulse Ox 98.1 F 53 L 16 143/66 H 95 01/10/20 10:28 01/10/20 10:37 01/10/20 10:28 01/10/20 10:28 01/10/20 10:28 Oxygen Delivery Method Room Air Weight: 135 lb 2.294 oz Body Mass Index (BMI) 23.9 Intake and Output for Last 24 Hours 01/08/20 01/09/20 01/10/20 23:59 23:59 23:59 Intake Total 1363.75 / 1483.75 120 / 120 Output Total 1525 / 2100 975 / 975 Balance -161.25 / -616.25 -855 / -855 General: Alert, Oriented x3, Cooperative HEENT: Atraumatic, PERRLA, EOMI, Normocephalic Neck: Supple, No JVD, Negative Carotid Bruits Lungs: Clear to auscultation, Normal air movement Cardiovascular: Regular rate, No murmurs Abdomen: Bowel Sounds Present, Soft, Non Tender Extremities: No edema, Capillary Refill Less than 3 Seconds Skin: No rashes, No breakdown Musculoskeletal: No Tenderness to Palpation of Joints or Extremities Neurological: Cranial nerves II-XII grossly intact Psych/Mental Status: Normal Affect, Appropriate, Alert and oriented to time, place, person, mood and affect Current Medications Acetaminophen (Tylenol) 975 mg PO TID [facility] Last Admin: 01/10/20 02:06 Dose: Not Given Documented by: Al Hydroxide/Mg Hydroxide (Mylanta Ii) 30 ml PO Q6H PRN PRN PRN Reason: Gastric Burning Last Admin: 01/10/20 00:21 Dose: 30 ml Documented by: Aspirin (Aspirin, Baby) 81 mg PO DAILY@0800 [facility] Atorvastatin Calcium (Lipitor) 40 mg PO QHS [facility] Last Admin: 01/09/20 21:53 Dose: 40 mg Documented by: Bisacodyl (Dulcolax) 5 mg PO DAILY PRN PRN PRN Reason: Constipation Enoxaparin Sodium (Lovenox) 30 mg SC DAILY [facility] Last Admin: 01/10/20 09:06 Dose: Not Given Documented by: Lactated Ringer's () 1,000 mls @ 999 mls/hr IV .Q1H1M [facility] Last Admin: 01/10/20 11:50 Dose: 999 mls/hr Documented by: Lactated Ringer's () 1,000 mls @ 125 mls/hr IV .Q8H [facility] Insulin Human Lispro (Humalog Kwikpen (Bkc)) 1 - 6 unit SC Q4H PRN PRN; Protocol PRN Reason: BG>/= 180, SEE PROTOCOL Metoprolol Tartrate (Lopressor (Beta Tony)) 25 mg PO BID [facility] Last Admin: 01/10/20 10:37 Dose: 12.5 mg Documented by: Morphine Sulfate () 2 mg IV Q3H PRN PRN PRN Reason: Pain Score 6-10/10 Last Admin: 01/10/20 00:21 Dose: 2 mg Documented by: Nutritional Formula (Lactose Free) (Ensure Enlive) 120 ml PO 4X/DAY [facility] Last Admin: 01/10/20 09:05 Dose: Not Given Documented by: Ondansetron HCl (Zofran) 4 mg IV Q8H PRN PRN PRN Reason: NAUSEA/VOMITING Last Admin: 01/09/20 00:14 Dose: 4 mg Documented by: Oxycodone HCl (Oxyir) 5 mg PO Q4H PRN PRN PRN Reason: Pain Score 4-5/10 Last Admin: 01/09/20 14:33 Dose: 5 mg Documented by: Psyllium Hydrophilic Mucilloid (Metamucil) 1 packet PO DAILY PRN PRN PRN Reason: Constipation Senna/Docusate Sodium (Senokot-S, Desirae-Colace) 2 tablet PO BID PRN PRN PRN Reason: Constipation Sodium Chloride () 10 - 40 ml IV UD PRN PRN Reason: SALINE FLUSH Last Admin: 01/10/20 00:22 Dose: 10 ml Documented by: Sodium Chloride () 10 - 40 ml IV UD PRN PRN Reason: SALINE FLUSH STROKE Vital Signs/Narrative: Vital Signs Temp Pulse Resp BP Pulse Ox 01/10/20 10:37 53 L 01/10/20 10:28 98.1 F 53 L 16 143/66 H 95 Medical Necessity - Tobacco Use Smoking Status: Former smoker Tobacco Use: Non-smoker Assessment/Plan All Active Problems Displaced dome fracture of right acetabulum (Acute) Preop cardiovascular exam (Acute) 1. Right hip displaced hardware - severe pain and inability to ambulate - ortho following, to OR today. post op ptot. likely needs snf. 2. Hx CAD, prior CABG - stress test shows ejection fraction of 40 to 45%, no ischemia. Mild fish. 3. HTN - controlled. 4. History of prostate cancer-in remission. 5. Probable CKD stage III-stable DVT ppx: per ortho. Discharge planning-the patient will likely need SNF at discharge This patient was seen by Florin Dove PA-C under the supervision of Doctor Nate. <Peter Sullivan F - Last Filed: 01/10/20 13:26> Vitals/I&O's: Vital Signs Temp Pulse Resp BP Pulse Ox 98.1 F 53 L 16 143/66 H 95 01/10/20 10:28 01/10/20 10:37 01/10/20 10:28 01/10/20 10:28 01/10/20 10:28 Oxygen Delivery Method Room Air Weight: 135 lb 2.294 oz Body Mass Index (BMI) 23.9 Intake and Output for Last 24 Hours 01/08/20 01/09/20 01/10/20 23:59 23:59 23:59 Intake Total 1363.75 / 1483.75 120 / 120 Output Total 1525 / 2100 975 / 975 Balance -161.25 / -616.25 -855 / -855 Current Medications Acetaminophen (Tylenol) 975 mg PO TID [facility] Last Admin: 01/10/20 02:06 Dose: Not Given Documented by: Al Hydroxide/Mg Hydroxide (Mylanta Ii) 30 ml PO Q6H PRN PRN PRN Reason: Gastric Burning Last Admin: 01/10/20 00:21 Dose: 30 ml Documented by: Aspirin (Aspirin, Baby) 81 mg PO DAILY@0800 [facility] Atorvastatin Calcium (Lipitor) 40 mg PO QHS [facility] Last Admin: 01/09/20 21:53 Dose: 40 mg Documented by: Bisacodyl (Dulcolax) 5 mg PO DAILY PRN PRN PRN Reason: Constipation Enoxaparin Sodium (Lovenox) 30 mg SC DAILY [facility] Last Admin: 01/10/20 09:06 Dose: Not Given Documented by: Lactated Ringer's () 1,000 mls @ 999 mls/hr IV .Q1H1M [facility] Last Admin: 01/10/20 11:50 Dose: 999 mls/hr Documented by: Lactated Ringer's () 1,000 mls @ 125 mls/hr IV .Q8H [facility] Insulin Human Lispro (Humalog Kwikpen (Bkc)) 1 - 6 unit SC Q4H PRN PRN; Protocol PRN Reason: BG>/= 180, SEE PROTOCOL Metoprolol Tartrate (Lopressor (Beta Tony)) 25 mg PO BID [facility] Last Admin: 01/10/20 10:37 Dose: 12.5 mg Documented by: Morphine Sulfate () 2 mg IV Q3H PRN PRN PRN Reason: Pain Score 6-10/10 Last Admin: 01/10/20 00:21 Dose: 2 mg Documented by: Nutritional Formula (Lactose Free) (Ensure Enlive) 120 ml PO 4X/DAY [facility] Last Admin: 01/10/20 09:05 Dose: Not Given Documented by: Ondansetron HCl (Zofran) 4 mg IV Q8H PRN PRN PRN Reason: NAUSEA/VOMITING Last Admin: 01/09/20 00:14 Dose: 4 mg Documented by: Oxycodone HCl (Oxyir) 5 mg PO Q4H PRN PRN PRN Reason: Pain Score 4-5/10 Last Admin: 01/09/20 14:33 Dose: 5 mg Documented by: Psyllium Hydrophilic Mucilloid (Metamucil) 1 packet PO DAILY PRN PRN PRN Reason: Constipation Senna/Docusate Sodium (Senokot-S, Desirae-Colace) 2 tablet PO BID PRN PRN PRN Reason: Constipation Sodium Chloride () 10 - 40 ml IV UD PRN PRN Reason: SALINE FLUSH Last Admin: 01/10/20 00:22 Dose: 10 ml Documented by: Sodium Chloride () 10 - 40 ml IV UD PRN PRN Reason: SALINE FLUSH STROKE Vital Signs/Narrative: Vital Signs Temp Pulse Resp BP Pulse Ox 01/10/20 10:37 53 L 01/10/20 10:28 98.1 F 53 L 16 143/66 H 95 Addendum: Dr. Sullivan I personally examined the patient and reviewed the chart. I agree with the above. 34-year-old male had a previous right total hip in 2012 presents after a fall on the right side about 9 months ago. He had some pain and went to the ER which did not show any acute fracture therefore he was discharged home. He is to continue ambulating and then 4 days ago he felt a pop and much more significant pain. He is unable to lift the leg and is extremely tender to palpation today. He had some EKG changes therefore cardiology was consulted for evaluation they did a dobutamine stress test which did not demonstrate any ischemia and therefore they felt he was low risk for surgery. Will consult PT/OT for evaluation to help before and after surgery and he will likely need a care home facility at discharge. Hopefully we can proceed with surgery tomorrow however that depends on the OR schedule and if necessary could potentially keep here until Monday for surgery. 01/10/2020: Doing well today, pain is a bit better controlled. He is having surgery today so we will continue with PT and OT and plan for discharge to a care home facility when able Inpatient E&M: [id number] Subs Hosp L2
[2020-01-10] MEDS: Heparin 10,000 UNITS/10 ML Vial 10000 UNITS (13:18)
--- NOTE | 2020-01-10 15:40 | OP.PCM_ITS ---
Report of Operation Date of Procedure: 01/10/20 Pre-Operative Diagnosis: Failed right total hip replacement, pelvic dissociation with acetabular component loosening Post-Operative Diagnosis: Failed right total hip replacement, pelvic dissociation with acetabular component loosening Surgery/Procedure Performed:: Direct anterior revision right total hip replacement femoral and acetabular components Description of Surgical Findings:: Stable hip. Equal leg lengths. Patient had significant medial acetabular defect. We were able to use a small medial cup as a buttress packet with bone graft. pathology laboratory aides teacher: Asa Helms Type of Anesthesia:: Spinal Anesthesiologist: Nils Sierra Special Medications: 2 g Ancef, 1 g TXA at incision, 1 g TXA closure, 10 mg Decadron, joint cocktail (5 mg Duramorph, 30 mL of 0.5% Ropivicaine, 1000 units of epinephrine, 30 mg of Toradol). 2 g of Ancef were redosed 2 and half hours after incision. Specimen's removed: Bone was sent to pathology. 3 separate specimens were sent to microbiology. Estimated Blood Loss (mL): 300 Fluids Replaced: 1600 mL crystalloid Description of Procedure: Components: 1. Levi trabecular metal acetabular revision shell 52 mm cup size with 1 screw 2. [place] Trident 2 multihole acetabular shell 58 mm with 3 screws 3. Irma MDM liner alpha code F 4. [place] MDM X3 polyethylene insert 40 6F 5. [place] Biolox delta C taper 28 mm -2.5 mm 6. [place] V 40 C taper adapter sleeve Procedure: On the day of the procedure patient's right hip was seen and evaluated in the preoperative area. Patient's right hip was marked. He was adequately consented for surgery. He was brought back to the operating room where spinal anesthetic was administered. Patient was placed in supine position. Anesthesia assumed control of the C-spine airway remained controlled throughout the remainder the procedure. All bony promises were identified and well-padded. A bump was placed posteriorly at the sacrum. Landmarks were marked out incision was marked with a permanent marker. Right lower extremity was then prepped in a sterile fashion while surgeon and engineer assistant scrub. Upon reentering the room the right lower extremity was draped in a sterile repeat fashion and the incision was again verified after re-palpating the landmarks. Once this was done timeout was called and everyone agreed upon the side, the site, the procedure to be performed, patient's identity and antib iotics given. Incision was taken down through skin, subcutaneous tissues. Fascia was identified. Once identified the fascia we identified the ASIS and incised the fascia lateral to the ASIS. TFL was then retracted laterally and a Hohmann retractor was placed over the lateral border of the femoral neck. We then identified the crossing vessels in the lower portion of the incision and coagulated them using Bovie cautery and bipolar cautery. Once this was completed we carefully identified the femoral neck dissecting down the bone of the middle femoral neck. Once we were inside the capsule a complete synovectomy was performed and we resected the anterior capsule. Once this was done we were able to access the joint. We carefully debrided the joint completing our synovectomy. Synovium was sent for culture. We were able to pull traction on the extremity and dissociate the Irby taper. Once this was completed the femur was retracted out of the way. The femoral head was removed. The acetabular component could be easily removed using a [place]. Once this was done we debrided the synovium from the acetabulum bone. At this point we noted a large central defect which was bilobed with an adequate outter ring. Based on this and assessment of the bone we elected to ream deep for a deep cup to place as a backstop for bone graft and placed a larger cup on the outer ring. We reamed the deep portion to 50 mm. A 52 mm trial cup was then placed. We then reamed the outer rim and were able to place a 58 mm cup. 2 trial components were put in place and x-rays were used to verify appropriate position of both cups. At this point did not appear that the deep cup would impede the seating of the outer cup. Based on this the trial components were removed and the wound was copiously irrigated out with normal saline 6 L under low-pressure lavage. Once this was done and the wound that been adequately debrided we then opened up the 52 mm deep cut. This cup was impacted into place. Using live x-ray we attempted to place screws. However it was difficult to obtain good screw purchase based on the thin bone that it was sitting on. One adequate screw could be placed. We did take a Armin and we were able to move the entire pelvis without dissociating the cup in the bone based on the tight rim fit. Once this was done allograft crouton cancellus bone was ground up and placed in the defect using the trabecular metal cup for a backstop. We then opened up the [place] 58 mm cup and impacted into place. Using live x-ray we were able to guide screws into appropriate bone. 2 screws were placed in the safe zone. One short screw was placed in the pubis. Gladis was then used to test the cup and the entire pelvis could be moved. Live x-ray was then used to verify implant positioning and it did not appear that the deep cup had changed positions. Once this was completed the MDM liner was placed. Once the MDM liner was placed we then brought the femur back into view and trialed a 46 mm MDM head with a -2.5 mm neck. This gave us adequate leg lengths. Good stability. Minimal shuck. Stable with extension and external rotation. And stable with flexion and internal grinder tender al rotation. Live x-ray was used to verify appropriate leg lengths based on an AP pelvis comparing both lesser trochanters. Trial components were again dislocated. Trial components were removed from the wound. Wound was copiously out normal saline. Trunnion was cleaned and dried adequately. Final components were assembled on the back table and the MDM femoral head was impacted into place engaging the Irby taper. Irby taper was checked. Hip was reduced. Leg lengths remain equal. Hip remained stable. Final x-rays were taken and reviewed. At this time the wound was copiously get out normal saline. 1 minute Aricept lavage was performed. Due to the duration of the case as well as use of allograft we also gave an additional dose of antibiotics on closure. Wound was then closed using #1 Vicryl for the fascia. 2-0 Vicryl for the skin and final skin closure was done with Monocryl and Steri-Strips. Sterile dressing was placed. Patient was awakened by anesthesia and transferred the PACU for recovery in stable condition. Postop plan: Toe-touch weightbearing for 6 weeks. Followed by weightbearing as tolerated if x-rays are appropriate. Aspirin for DVT prophylaxis upon discharge 81 mg twice daily. Follow-up in office in 2 weeks for wound check and x-ray check. - Complications No intraoperative complications - Admit VTE Documentation VTE Present on Admission: No VTE Mechan Device Prophylaxis: SCD's, Thigh High CRISTINA Hose VTE Pharm Prophylaxis ordered?: Yes
--- NOTE | 2020-01-10 16:20 | RAD_ITS ---
HISTORY: History: post-op right hip Technique: Right hip, 2 different angled radiographs Comparison: None available Findings: A right hip prosthesis is present. The acetabular component is very high within the right iliac wing, above the normal position of the right acetabulum suggestive of at least one surgery possibly from chronic dislocation. Left hip arthritis is present. Lumbar sacral fusion. Surgical clips superimposed over the pubic symphysis possibly related to vasectomy for prostatic biopsy. Atherosclerotic disease. Left proximal thigh surgical clip possibly related to lymph node resection or a low arteriotomy. Gas is present within the soft tissues lateral to the right iliac wing and above the right rater trochanter possibly indicative that the right hip surgery isn't recent. Bone mineral density appears to be diminished. 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
[2020-01-10] MEDS: Lactated Ringers 1,000 ML 90 ML IV ×2 (17:22→22:30)
[2020-01-10] MEDS: Ensure Surgery 237 ML LIQUID PO (18:34)
[2020-01-10] MEDS: Cefazolin 1 GM/50 ML BAG IV (20:59)
[2020-01-10] MEDS: Atorvastatin Calcium 40 MG Tablet PO (21:02)
[2020-01-10] MEDS: Senna/Docusate Sodium 1 Tablet 2 TABLET PO (21:03)
[2020-01-11] VITALS (11 sets, daily range): BP systolic 93–160; BP diastolic 39–74; PULSE 48–65; RESP 16–18; TEMP 36.4–36.8; O2SAT 94–98; BMI 24.0
[2020-01-11] MEDS: Morphine 2 MG/ML Syringe IV ×2 (04:32→13:05)
[2020-01-11] MEDS: 0.9% Saline Lock 10 ML Syringe IV ×5 (04:32→22:50)
[2020-01-11] MEDS: Cefazolin 1 GM/50 ML BAG IV (04:40)
[2020-01-11] MEDS: Acetaminophen 500 MG Tablet 1000 MG PO ×3 (05:37→22:46)
--- NOTE | 2020-01-11 06:52 | PCM.PN.ORT ---
Patient Problems: Active and Suspected Problems Displaced dome fracture of right acetabulum (Acute) Prostate cancer (Suspected) Preop cardiovascular exam (Acute) Subjective: 74-year-old male presents today 1 day after revision right total hip replacement. X-rays look appropriate. Patient's pain is well controlled. His pain is significantly diminished from preoperatively. No acute events overnight. Vital signs are stable. Objective: Postop x-rays show stable well fixed revision total hip replacement. - Physical Exam Vitals/I&O's: Vital Signs Temp Pulse Resp BP Pulse Ox 97.9 F 48 L 16 120/50 L 97 01/11/20 05:49 01/11/20 05:49 01/11/20 05:49 01/11/20 05:49 01/11/20 05:49 Oxygen Flow Rate (L/min) 2 Oxygen Delivery Method Nasal Cannula Weight: 135 lb 2.294 oz Body Mass Index (BMI) 23.9 Intake and Output for Last 24 Hours 01/09/20 01/10/20 01/11/20 23:59 23:59 23:59 Intake Total 1363.75 / 1483.75 2962 / 3262 1230 / 1230 Output Total 1525 / 2100 975 / 1175 750 / 750 Balance -161.25 / -616.25 1986 / 2086 480 / 480 General: Alert, Oriented x3, Cooperative Extremities: - - Right lower extremity: Dressing is clean dry and intact Sensations intact to light touch saphenous, sural, superficial peroneal, deep peroneal, and tibial distributions Motors intact EHL, DF, PF calves are soft and supple Current Medications Acetaminophen (Tylenol) 1,000 mg PO Q8 [facility] Last Admin: 01/11/20 05:37 Dose: 1,000 mg Documented by: Al Hydroxide/Mg Hydroxide (Mylanta Ii) 30 ml PO Q6H PRN PRN PRN Reason: Gastric Burning Last Admin: 01/10/20 00:21 Dose: 30 ml Documented by: Aspirin (Aspirin, Baby) 81 mg PO DAILY@0800 [facility] Last Admin: 01/10/20 19:15 Dose: Not Given Documented by: Atorvastatin Calcium (Lipitor) 40 mg PO QHS [facility] Last Admin: 01/10/20 21:02 Dose: 40 mg Documented by: Bisacodyl (Dulcolax) 5 mg PO DAILY PRN PRN PRN Reason: Constipation Enoxaparin Sodium (Lovenox) 30 mg SC DAILY [facility] Last Admin: 01/10/20 09:06 Dose: Not Given Documented by: Enteral Nutritional Formula (Ensure Surgery) 237 ml PO TIDCM [facility] Last Admin: 01/10/20 18:34 Dose: 237 ml Documented by: Famotidine (Pepcid) 20 mg PO DAILY [facility] Lactated Ringer's () 1,000 mls @ 90 mls/hr IV .Q11H7M [facility] Last Infusion: 01/11/20 03:50 Dose: 90 mls/hr Documented by: Insulin Human Lispro (Humalog Kwikpen (Bkc)) 1 - 6 unit SC Q4H PRN PRN; Protocol PRN Reason: BG>/= 180, SEE PROTOCOL Metoprolol Tartrate (Lopressor (Beta Tony)) 25 mg PO BID [facility] Last Admin: 01/10/20 21:02 Dose: 25 mg Documented by: Morphine Sulfate () 2 mg IV Q3H PRN PRN PRN Reason: Pain Score 6-10/10 Last Admin: 01/11/20 04:32 Dose: 2 mg Documented by: Nutritional Formula (Lactose Free) (Ensure Enlive) 120 ml PO 4X/DAY [facility] Last Admin: 01/10/20 21:01 Dose: Not Given Documented by: Ondansetron HCl (Zofran) 4 mg IV Q8H PRN PRN PRN Reason: NAUSEA/VOMITING Last Admin: 01/09/20 00:14 Dose: 4 mg Documented by: Ondansetron HCl (Zofran) 4 mg IV Q8H PRN PRN PRN Reason: NAUSEA Oxycodone HCl (Oxyir) 5 mg PO Q4H PRN PRN PRN Reason: Pain Score 4-5/10 Last Admin: 01/09/20 14:33 Dose: 5 mg Documented by: Promethazine HCl (Phenergan) 12.5 mg IM Q6H PRN PRN; Protocol PRN Reason: NAUSEA/VOMITING Psyllium Hydrophilic Mucilloid (Metamucil) 1 packet PO DAILY PRN PRN PRN Reason: Constipation Senna/Docusate Sodium (Senokot-S, Desirae-Colace) 2 tablet PO BID PRN PRN PRN Reason: Constipation Senna/Docusate Sodium (Senokot-S, Desirae-Colace) 2 tablet PO BID [facility] Last Admin: 01/10/20 21:03 Dose: 1 tablet Documented by: Sodium Chloride () 10 - 40 ml IV UD PRN PRN Reason: SALINE FLUSH Last Admin: 01/11/20 04:32 Dose: 10 ml Documented by: Sodium Chloride () 10 - 40 ml IV UD PRN PRN Reason: SALINE FLUSH Medical Necessity - Tobacco Use Smoking Status: Former smoker Tobacco Use: Non-smoker Assessment/Plan All Active Problems Displaced dome fracture of right acetabulum (Acute) Preop cardiovascular exam (Acute) Postop day 1 revision right total hip replacement. 1. Pain control: Continue current pain regimen limit narcotics. Regular Tylenol. 2. DVT prophylaxis: Currently receiving Lovenox in-house. Upon discharge recommend 81 mg aspirin twice daily. This will continue for 4 weeks postoperatively. 3. Physical therapy: Patient will be touchdown weightbearing for a total of 6 weeks she had touchdown weightbearing restrictions upon discharge. No limitations on range of motion. Due to weightbearing restrictions will likely need discharge to further rehabilitation. senior care facility or inpatient rehabilitation. 4. Intraoperative cultures/specimens: Intraoperative cultures were taken in the standard fashion. We will continue to follow. Patient was placed on doxycycline for 1 week postoperatively. If cultures are negative should be discontinued at that time. We also sent pathologic specimens patient has history of prostate cancer we will continue to monitor the results. 5. Medical management: Per primary service patient appears medically stable to morning. Comfortable. 6. Disposition: Patient will likely require discharge to short-term nursing or rehabilitation once ready to leave the hospital setting due to his weightbearing restrictions. Please call orthopedics for any further questions or concerns. [facility] Office:
[2020-01-11 06:57] LABS: Hematocrit 34.7 % (40-54); Hemoglobin 10.6 g/dL (13.0-16.5); Mean Corp Hgb Conc 30.5 g/dL (32-36); Mean Corpuscular Volume 104.8 fL (80-94); Mean Platelet Vol. 9.3 fl (6.2-12.0); Platelet Count 194 K/mm3 (150-450); RBC Distribution Width SD 49.3 fl (35.1-43.9); Red Blood Count 3.31 M/mm3 (4.6-6.2)
[2020-01-11 08:16] LABS: Anion Gap 8 (5-15); BUN 23 mg/dL (7-18); BUN/Creat Ratio 16.7 RATIO (10-20); Calcium,Total 8.8 mg/dL (8.5-10.1); Chloride 101 mmol/L (98-107); Creatinine, Serum 1.38 mg/dL (0.70-1.30); EST Glomerular Filtration Rate 53 mL/min (>60); Est Glom Filt Rate - Afr Amer 64 mL/min (>60); Estimated Creatinine Clearance 36.65 ml/min; Glucose 130 mg/dL (74-106); Potassium 5.4 mmol/L (3.5-5.1); Sodium Level 133 mmol/L (136-145)
[2020-01-11] MEDS: Famotidine 20 MG Tablet PO (09:12)
[2020-01-11] MEDS: Aspirin 81 MG TAB.CHEW PO (09:12)
[2020-01-11] MEDS: Senna/Docusate Sodium 1 Tablet 2 TABLET PO ×2 (09:13→22:42)
[2020-01-11] MEDS: Ensure Surgery 237 ML LIQUID PO (09:16)
[2020-01-11] MEDS: Enoxaparin 40 MG/0.4 ML Syringe SC (09:16)
[2020-01-11] MEDS: Metoprolol Tartrate 25 MG Tablet 12.5 MG PO (13:13)
--- NOTE | 2020-01-11 15:13 | PN_ITS ---
<Florin Doev - Last Filed: 01/11/20 15:13> Patient Problems: Active and Suspected Problems Displaced dome fracture of right acetabulum (Acute) Prostate cancer (Suspected) Preop cardiovascular exam (Acute) Reason for Visit: left hip pain Subjective: pain markedly improved since presentation. no fever/chills. no cough/sob. No nausea/vomiting. No numbness/tingling of the affected ext. Vitals/I&O's: Vital Signs Temp Pulse Resp BP Pulse Ox 97.7 F L 56 L 16 103/65 97 01/11/20 14:17 01/11/20 14:17 01/11/20 14:17 01/11/20 14:17 01/11/20 14:17 Oxygen Flow Rate (L/min) 2 Oxygen Delivery Method Room Air Weight: 135 lb 2.294 oz Body Mass Index (BMI) 23.9 Intake and Output for Last 24 Hours 01/09/20 01/10/20 01/11/20 23:59 23:59 23:59 Intake Total 1363.75 / 1483.75 2962 / 3262 2012 Output Total 1525 / 2100 975 / 1175 1200 / 1200 Balance -161.25 / -616.25 1986 813 / 813 General: Alert, Oriented x3, Cooperative HEENT: Atraumatic, PERRLA, EOMI, Normocephalic Neck: Supple, No JVD, Negative Carotid Bruits Lungs: Clear to auscultation, Normal air movement Cardiovascular: Regular rate, No murmurs Abdomen: Bowel Sounds Present, Soft, Non Tender Extremities: No edema, Capillary Refill Less than 3 Seconds Skin: No rashes, No breakdown Musculoskeletal: No Tenderness to Palpation of Joints or Extremities Neurological: Cranial nerves II-XII grossly intact Psych/Mental Status: Normal Affect, Appropriate, Alert and oriented to time, place, person, mood and affect Microbiology Past 72 Hours 01/10/20 14:00 Tissue - Hip Gram Stain - Final 01/10/20 14:00 Tissue - Hip Wound Culture - Preliminary No growth-Final to follow 01/10/20 16:00 Tissue - Hip Gram Stain - Final 01/10/20 16:00 Tissue - Hip Wound Culture - Preliminary No growth-Final to follow 01/10/20 14:00 Tissue - Hip Gram Stain - Final Laboratory Results 01/11/20 06:26: WBC 16.0 H, RBC 3.31 L, Hgb 10.6 L, Hct 34.7 L, MCV 104.8 H, MCH 32.0, MCHC 30.5 L, RDW Std Deviation 49.3 H, RDW Coeff of Eric 13.0, Plt Count 194, MPV 9.3 01/11/20 06:26: Sodium 133 L, Potassium 5.4 H, Chloride 101, Carbon Dioxide 24.0, Anion Gap 8, BUN 23 H, Creatinine 1.38 H, Estim Creat Clear Calc 36.65, Est GFR (MDRD) Af Amer 64, Est GFR (MDRD) Non-Af 53 L, BUN/Creatinine Ratio 16.7, Glucose 130 H, Calcium 8.8 Current Medications Acetaminophen (Tylenol) 1,000 mg PO Q8 [facility] Last Admin: 01/11/20 14:24 Dose: 1,000 mg Documented by: Al Hydroxide/Mg Hydroxide (Mylanta Ii) 30 ml PO Q6H PRN PRN PRN Reason: Gastric Burning Last Admin: 01/10/20 00:21 Dose: 30 ml Documented by: Aspirin (Aspirin, Baby) 81 mg PO DAILY@0800 [facility] Last Admin: 01/11/20 09:12 Dose: 81 mg Documented by: Atorvastatin Calcium (Lipitor) 40 mg PO QHS [facility] Last Admin: 01/10/20 21:02 Dose: 40 mg Documented by: Bisacodyl (Dulcolax) 5 mg PO DAILY PRN PRN PRN Reason: Constipation Enoxaparin Sodium (Lovenox) 40 mg SC DAILY [facility] Last Admin: 01/11/20 09:16 Dose: 40 mg Documented by: Enteral Nutritional Formula (Ensure Surgery) 237 ml PO TIDCM [facility] Last Admin: 01/11/20 13:03 Dose: Not Given Documented by: Famotidine (Pepcid) 20 mg PO DAILY [facility] Last Admin: 01/11/20 09:12 Dose: 20 mg Documented by: Insulin Human Lispro (Humalog Christian (Bkc)) 1 - 6 unit SC Q4H PRN PRN; Protocol PRN Reason: BG>/= 180, SEE PROTOCOL Metoprolol Tartrate (Lopressor (Beta Tony)) 12.5 mg PO BID [facility] Last Admin: 01/11/20 13:13 Dose: 12.5 mg Documented by: Morphine Sulfate () 2 mg IV Q3H PRN PRN PRN Reason: Pain Score 6-10/10 Last Admin: 01/11/20 13:05 Dose: 2 mg Documented by: Ondansetron HCl (Zofran) 4 mg IV Q8H PRN PRN PRN Reason: NAUSEA/VOMITING Last Admin: 01/09/20 00:14 Dose: 4 mg Documented by: Ondansetron HCl (Zofran) 4 mg IV Q8H PRN PRN PRN Reason: NAUSEA Oxycodone HCl (Oxyir) 5 mg PO Q4H PRN PRN PRN Reason: Pain Score 4-5/10 Last Admin: 01/09/20 14:33 Dose: 5 mg Documented by: Promethazine HCl (Phenergan) 12.5 mg IM Q6H PRN PRN; Protocol PRN Reason: NAUSEA/VOMITING Psyllium Hydrophilic Mucilloid (Metamucil) 1 packet PO DAILY PRN PRN PRN Reason: Constipation Senna/Docusate Sodium (Senokot-S, Desirae-Colace) 2 tablet PO BID PRN PRN PRN Reason: Constipation Senna/Docusate Sodium (Senokot-S, Desirae-Colace) 2 tablet PO BID [facility] Last Admin: 01/11/20 09:13 Dose: 2 tablet Documented by: Sodium Chloride () 10 - 40 ml IV UD PRN PRN Reason: SALINE FLUSH Last Admin: 01/11/20 13:05 Dose: 10 ml Documented by: Sodium Chloride () 10 - 40 ml IV UD PRN PRN Reason: SALINE FLUSH STROKE Vital Signs/Narrative: Vital Signs Temp Pulse Resp BP BP Pulse Ox 01/11/20 14:17 97.7 F L 56 L 16 103/65 97 01/11/20 13:48 94 01/11/20 13:13 65 01/11/20 13:10 116/60 Medical Necessity - Tobacco Use Smoking Status: Former smoker Tobacco Use: Non-smoker Assessment/Plan All Active Problems Displaced dome fracture of right acetabulum (Acute) Preop cardiovascular exam (Acute) 1. Right hip displaced hardware - ortho following, POD#1. pain improved. post op ptot. leukocytosis reacting to surgery, doubt infection at this time. 2. Hx CAD, prior CABG - stress test shows ejection fraction of 40 to 45%, no ischemia. Mild fish. 3. HTN - controlled. 4. History of prostate cancer-in remission. 5. Probable CKD stage III-stable DVT ppx: per ortho. Discharge planning-likely to SNF tomorrow. This patient was seen by Florin Dove PA-C under the supervision of Doctor Nate. <Peter Sullivan F - Last Filed: 01/12/20 07:26> Vitals/I&O's: Vital Signs Temp Pulse Resp BP Pulse Ox 98.4 F 64 18 155/69 H 95 01/12/20 03:49 01/12/20 03:49 01/12/20 03:49 01/12/20 03:49 01/12/20 03:49 Oxygen Flow Rate (L/min) 2 Oxygen Delivery Method Room Air Weight: 135 lb 2.294 oz Body Mass Index (BMI) 23.9 Intake and Output for Last 24 Hours 01/10/20 01/11/20 01/12/20 23:59 23:59 23:59 Intake Total 2962 / 3262 2012 250 / 250 Output Total 975 / 1175 1200 / 1200 200 / 200 Balance 1986 813 / 913 50 / 50 Microbiology Past 72 Hours 01/10/20 14:00 Tissue - Hip Gram Stain - Final 01/10/20 14:00 Tissue - Hip Wound Culture - Preliminary No growth-Final to follow 01/10/20 16:00 Tissue - Hip Gram Stain - Final 01/10/20 16:00 Tissue - Hip Wound Culture - Preliminary No growth-Final to follow 01/10/20 14:00 Tissue - Hip Gram Stain - Final Laboratory Results 01/11/20 06:26: Sodium 133 L, Potassium 5.4 H, Chloride 101, Carbon Dioxide 24.0, Anion Gap 8, BUN 23 H, Creatinine 1.38 H, Estim Creat Clear Calc 36.65, Est GFR (MDRD) Af Amer 64, Est GFR (MDRD) Non-Af 53 L, BUN/Creatinine Ratio 16.7, Glucose 130 H, Calcium 8.8 01/12/20 05:35: WBC 15.4 H, RBC 3.56 L, Hgb 11.3 L, Hct 34.4 L, MCV 96.6 H D, MCH 31.7, MCHC 32.8 D, RDW Std Deviation 45.4 H, RDW Coeff of Eric 12.8, Plt Count 242, MPV 10.3, Immature Gran % (Auto) 0.700, Neut % (Auto) 89.9 H, Lymph % (Auto) 3.9 L, [place] % (Auto) 5.3, Eos % (Auto) 0.1, Baso % (Auto) 0.1, Absolute Neuts (auto) 13.8 H, Absolute Lymphs (auto) 0.60 L, Nucleated RBC % 0 01/12/20 05:35: Sodium 131 L, Potassium 4.2, Chloride 99, Carbon Dioxide 23.0, Anion Gap 9, BUN 25 H, Creatinine 1.32 H, Estim Creat Clear Calc 38.32, Est GFR (MDRD) Af Amer 68, Est GFR (MDRD) Non-Af 56 L, BUN/Creatinine Ratio 18.9, G lucose 133 H, Calcium 8.7 Current Medications Acetaminophen (Tylenol) 1,000 mg PO Q8 [facility] Last Admin: 01/12/20 06:53 Dose: 1,000 mg Documented by: Al Hydroxide/Mg Hydroxide (Mylanta Ii) 30 ml PO Q6H PRN PRN PRN Reason: Gastric Burning Last Admin: 01/10/20 00:21 Dose: 30 ml Documented by: Aspirin (Aspirin, Baby) 81 mg PO DAILY@0800 [facility] Last Admin: 01/11/20 09:12 Dose: 81 mg Documented by: Atorvastatin Calcium (Lipitor) 40 mg PO QHS [facility] Last Admin: 01/11/20 22:42 Dose: 40 mg Documented by: Bisacodyl (Dulcolax) 5 mg PO DAILY PRN PRN PRN Reason: Constipation Bisacodyl (Dulcolax) 10 mg RECTAL DAILY PRN PRN Reason: Constipation Last Admin: 01/12/20 04:01 Dose: 10 mg Documented by: Enoxaparin Sodium (Lovenox) 40 mg SC DAILY [facility] Last Admin: 01/11/20 09:16 Dose: 40 mg Documented by: Enteral Nutritional Formula (Ensure Surgery) 237 ml PO TIDCM [facility] Last Admin: 01/11/20 17:17 Dose: Not Given Documented by: Famotidine (Pepcid) 20 mg PO DAILY [facility] Last Admin: 01/11/20 09:12 Dose: 20 mg Documented by: Glycerin (Sani-Supp) 1 supp RECTAL DAILY PRN PRN PRN Reason: Constipation Insulin Human Lispro (Humalog Kwikpen (Bkc)) 1 - 6 unit SC Q4H PRN PRN; Protocol PRN Reason: BG>/= 180, SEE PROTOCOL Metoprolol Tartrate (Lopressor (Beta Tony)) 12.5 mg PO BID [facility] Last Admin: 01/11/20 22:45 Dose: Not Given Documented by: Morphine Sulfate () 2 mg IV Q3H PRN PRN PRN Reason: Pain Score 6-10/10 Last Admin: 01/12/20 04:01 Dose: 2 mg Documented by: Ondansetron HCl (Zofran) 4 mg IV Q8H PRN PRN PRN Reason: NAUSEA Last Admin: 01/11/20 22:50 Dose: 4 mg Documented by: Oxycodone HCl (Oxyir) 5 mg PO Q4H PRN PRN PRN Reason: Pain Score 4-5/10 Last Admin: 01/09/20 14:33 Dose: 5 mg Documented by: Polyethylene Glycol (Miralax) 17 gm PO BID [facility] Last Admin: 01/11/20 22:53 Dose: Not Given Documented by: Promethazine HCl (Phenergan) 12.5 mg IM Q6H PRN PRN; Protocol PRN Reason: NAUSEA/VOMITING Psyllium Hydrophilic Mucilloid (Metamucil) 1 packet PO DAILY PRN PRN PRN Reason: Constipation Senna/Docusate Sodium (Senokot-S, Desirae-Colace) 2 tablet PO BID PRN PRN PRN Reason: Constipation Senna/Docusate Sodium (Senokot-S, Desirae-Colace) 2 tablet PO BID [facility] Last Admin: 01/11/20 22:42 Dose: 2 tablet Documented by: Sodium Chloride () 10 - 40 ml IV UD PRN PRN Reason: SALINE FLUSH Last Admin: 01/12/20 04:01 Dose: 10 ml Documented by: Sodium Chloride () 10 - 40 ml IV UD PRN PRN Reason: SALINE FLUSH STROKE Vital Signs/Narrative: Vital Signs Temp Pulse Resp BP Pulse Ox 01/12/20 03:49 98.4 F 64 18 155/69 H 95 Addendum: Dr. Sullivan I personally examined the patient and reviewed the chart. I agree with the above. 34-year-old male had a previous right total hip in 2013 presents after a fall on the right side about 9 months ago. He had some pain and went to the ER which did not show any acute fracture therefore he was discharged home. He is to continue ambulating and then 4 days ago he felt a pop and much more significant pain. He is unable to lift the leg and is extremely tender to palpation today. He had some EKG changes therefore cardiology was consulted for evaluation they did a dobutamine stress test which did not demonstrate any ischemia and therefore they felt he was low risk for surgery. Will consult PT/OT for evaluation to help before and after surgery and he will likely need a nursing home facility at discharge. Hopefully we can proceed with surgery tomorrow however that depends on the OR schedule and if necessary could potentially keep here until Monday for surgery. 01/10/2020: Doing well today, pain is a bit better controlled. He is having surgery today so we will continue with PT and OT and plan for discharge to a nursing home facility when able 01/11/2020: He is doing well after surgery, pain is much better controlled he did work with physical therapy yesterday and will see how he is doing today. He may be able to transfer to the rehab unit on discharge on Monday otherwise may need test day if the beginning part of the week for a nursing home facility placement. Inpatient E&M: 18632 Subs Hosp L2
[2020-01-11] MEDS: Fleet Enema 1 ML RECTAL (17:44)
[2020-01-11] MEDS: Ondansetron 4 MG/2 ML Vial IV ×2 (17:48→22:50)
[2020-01-11] MEDS: Atorvastatin Calcium 40 MG Tablet PO (22:42)
--- NOTE | 2020-01-11 23:20 | NURSING ---
AM nurse said Pt needed rectal suppository. Pt refusing.
[2020-01-12 03:49] VITALS: BP 155/69; PULSE 64; RESP 18; TEMP 36.9; O2SAT 95
[2020-01-12] MEDS: Morphine 2 MG/ML Syringe IV (04:01)
[2020-01-12] MEDS: Bisacodyl 10 MG Suppository RECTAL (04:01)
[2020-01-12] MEDS: 0.9% Saline Lock 10 ML Syringe IV ×3 (04:01→17:30)
[2020-01-12 06:52] LABS: Absolute Neutrophil Count 13.8 X10^3/uL (2.0-7.7); Basophil# 0.02 X10^3/uL; Basophil% 0.1 % (0-1); Eosinophil# 0.01 X10^3/uL; Eosinophils% 0.1 % (0-5); Hematocrit 34.4 % (40-54); Hemoglobin 11.3 g/dL (13.0-16.5); Lymphocyte % 3.9 % (19-41); Mean Corp Hgb Conc 32.8 g/dL (32-36); Mean Corpuscular Hgb 31.7 pg (27.0-32.0); Mean Corpuscular Volume 96.6 fL (80-94); Mean Platelet Vol. 10.3 fl (6.2-12.0); Monocyte# 0.82 X10^3/uL; Monocyte% 5.3 % (0-10); NRBC Flagged by Analyzer 0 % (0-5); Neutrophil # 13.81 X10^3/uL (2.7-7.7); Neutrophil % 89.9 % (47-70); POSITIVE DIFFERENTIAL YES; Platelet Count 242 K/mm3 (150-450); RBC Distribution Width CV 12.8 % (11.6-14.6); RBC Distribution Width SD 45.4 fl (35.1-43.9); Red Blood Count 3.56 M/mm3 (4.6-6.2); White Blood Count 15.4 K/mm3 (4.4-11.0)
[2020-01-12] MEDS: Acetaminophen 500 MG Tablet 1000 MG PO ×2 (06:53→23:00)
[2020-01-12 06:55] LABS: Anion Gap 9 (5-15); BUN 25 mg/dL (7-18); BUN/Creat Ratio 18.9 RATIO (10-20); Calcium,Total 8.7 mg/dL (8.5-10.1); Chloride 99 mmol/L (98-107); Creatinine, Serum 1.32 mg/dL (0.70-1.30); EST Glomerular Filtration Rate 56 mL/min (>60); Est Glom Filt Rate - Afr Amer 68 mL/min (>60); Estimated Creatinine Clearance 38.32 ml/min; Glucose 133 mg/dL (74-106); Potassium 4.2 mmol/L (3.5-5.1); Sodium Level 131 mmol/L (136-145)
[2020-01-12 07:16] LABS: Differential Indicated SCAN CRITERIA MET
[2020-01-12] MEDS: Ondansetron 4 MG/2 ML Vial IV ×2 (07:35→23:13)
[2020-01-12] MEDS: Mag Hydrox/Al Hydrox/Simeth 30 ML UDC PO (07:35)
[2020-01-12] MEDS: proMETHazine 25 MG/ML Syringe 12.5 MG IM (08:19)
[2020-01-12 09:48] VITALS: BP 144/96; PULSE 73; RESP 16; TEMP 37.1; O2SAT 94
[2020-01-12 09:54] VITALS: PULSE 73
[2020-01-12] MEDS: Famotidine 20 MG Tablet PO (09:54)
[2020-01-12] MEDS: Aspirin 81 MG TAB.CHEW PO (09:54)
[2020-01-12] MEDS: Metoprolol Tartrate 25 MG Tablet 12.5 MG PO ×2 (09:54→23:00)
[2020-01-12] MEDS: Enoxaparin 40 MG/0.4 ML Syringe SC (09:55)
[2020-01-12] MEDS: Ensure Surgery 237 ML LIQUID PO (09:55)
[2020-01-12] MEDS: Polyethylene Glycol 3350 17 GM PACKET PO ×2 (09:55→23:01)
[2020-01-12] MEDS: Bisacodyl 5 MG Tablet PO (09:55)
[2020-01-12] MEDS: Senna/Docusate Sodium 1 Tablet 2 TABLET PO ×2 (09:55→23:00)
--- NOTE | 2020-01-12 13:20 | PN_ITS ---
<Florin Dove - Last Filed: 01/12/20 13:20> Patient Problems: Active and Suspected Problems Displaced dome fracture of right acetabulum (Acute) Prostate cancer (Suspected) Preop cardiovascular exam (Acute) Reason for Visit: hip pain Subjective: mildly increased hip pain today. minimal weight bearing tolerated. no fever/chills. No LH/dizziness. No CP/SOB/palp. No new paraesthesias in the effected extremity Vitals/I&O's: Vital Signs Temp Pulse Resp BP Pulse Ox 98.8 F 73 16 144/96 H 94 01/12/20 09:48 01/12/20 09:54 01/12/20 09:48 01/12/20 09:48 01/12/20 09:48 Oxygen Flow Rate (L/min) 2 Oxygen Delivery Method Room Air Weight: 135 lb 2.294 oz Body Mass Index (BMI) 23.9 Intake and Output for Last 24 Hours 01/10/20 01/11/20 01/12/20 23:59 23:59 23:59 Intake Total 2962 / 3262 2012 370 / 370 Output Total 975 / 1175 1200 / 1200 200 / 200 Balance 1986 813 / 913 170 / 170 General: Alert, Oriented x3, Cooperative HEENT: Atraumatic, PERRLA, EOMI, Normocephalic Neck: Supple, No JVD, Negative Carotid Bruits Lungs: Clear to auscultation, Normal air movement Cardiovascular: Regular rate, No murmurs Abdomen: Bowel Sounds Present, Soft, Non Tender Extremities: No edema, Capillary Refill Less than 3 Seconds Skin: No rashes, No breakdown Musculoskeletal: No Tenderness to Palpation of Joints or Extremities Neurological: Cranial nerves II-XII grossly intact Psych/Mental Status: Normal Affect, Appropriate, Alert and oriented to time, place, person, mood and affect Microbiology Past 72 Hours 01/10/20 14:00 Tissue - Hip Gram Stain - Final 01/10/20 14:00 Tissue - Hip Wound Culture - Preliminary No growth-Final to follow 01/10/20 16:00 Tissue - Hip Gram Stain - Final 01/10/20 16:00 Tissue - Hip Wound Culture - Preliminary No growth-Final to follow 01/10/20 14:00 Tissue - Hip Gram Stain - Final Laboratory Results 01/12/20 05:35: WBC 15.4 H, RBC 3.56 L, Hgb 11.3 L, Hct 34.4 L, MCV 96.6 H D, MCH 31.7, MCHC 32.8 D, RDW Std Deviation 45.4 H, RDW Coeff of Eric 12.8, Plt Count 242, MPV 10.3, Immature Gran % (Auto) 0.700, Neut % (Auto) 89.9 H, Lymph % (Auto) 3.9 L, [place] % (Auto) 5.3, Eos % (Auto) 0.1, Baso % (Auto) 0.1, Absolute Neuts (auto) 13.8 H, Absolute Lymphs (auto) 0.60 L, Nucleated RBC % 0 01/12/20 05:35: Sodium 131 L, Potassium 4.2, Chloride 99, Carbon Dioxide 23.0, Anion Gap 9, BUN 25 H, Creatinine 1.32 H, Estim Creat Clear Calc 38.32, Est GFR (MDRD) Af Amer 68, Est GFR (MDRD) Non-Af 56 L, BUN/Creatinine Ratio 18.9, Glucose 133 H, Calcium 8.7 Current Medications Acetaminophen (Tylenol) 1,000 mg PO Q8 [facility] Last Admin: 01/12/20 06:53 Dose: 1,000 mg Documented by: Al Hydroxide/Mg Hydroxide (Mylanta Ii) 30 ml PO Q6H PRN PRN PRN Reason: Gastric Burning Last Admin: 01/12/20 07:35 Dose: 30 ml Documented by: Aspirin (Aspirin, Baby) 81 mg PO DAILY@0800 [facility] Last Admin: 01/12/20 09:54 Dose: 81 mg Documented by: Atorvastatin Calcium (Lipitor) 40 mg PO QHS [facility] Last Admin: 01/11/20 22:42 Dose: 40 mg Documented by: Bisacodyl (Dulcolax) 5 mg PO DAILY PRN PRN PRN Reason: Constipation Last Admin: 01/12/20 09:55 Dose: 5 mg Documented by: Bisacodyl (Dulcolax) 10 mg RECTAL DAILY PRN PRN Reason: Constipation Last Admin: 01/12/20 04:01 Dose: 10 mg Documented by: Enoxaparin Sodium (Lovenox) 40 mg SC DAILY [facility] Last Admin: 01/12/20 09:55 Dose: 40 mg Documented by: Enteral Nutritional Formula (Ensure Surgery) 237 ml PO TIDCM [facility] Last Admin: 01/12/20 09:55 Dose: 237 ml Documented by: Famotidine (Pepcid) 20 mg PO DAILY [facility] Last Admin: 01/12/20 09:54 Dose: 20 mg Documented by: Glycerin (Sani-Supp) 1 supp RECTAL DAILY PRN PRN PRN Reason: Constipation Insulin Human Lispro (Humalog Kwikpen (Bkc)) 1 - 6 unit SC Q4H PRN PRN; Protocol PRN Reason: BG>/= 180, SEE PROTOCOL Metoprolol Tartrate (Lopressor (Beta Tony)) 12.5 mg PO BID [facility] Last Admin: 01/12/20 09:54 Dose: 12.5 mg Documented by: Morphine Sulfate () 2 mg IV Q3H PRN PRN PRN Reason: Pain Score 6-10/10 Last Admin: 01/12/20 04:01 Dose: 2 mg Documented by: Ondansetron HCl (Zofran) 4 mg IV Q8H PRN PRN PRN Reason: NAUSEA Last Admin: 01/12/20 07:35 Dose: 4 mg Documented by: Oxycodone HCl (Oxyir) 5 mg PO Q4H PRN PRN PRN Reason: Pain Score 4-5/10 Last Admin: 01/09/20 14:33 Dose: 5 mg Documented by: Polyethylene Glycol (Miralax) 17 gm PO BID [facility] Last Admin: 01/12/20 09:55 Dose: 17 gm Documented by: Promethazine HCl (Phenergan) 12.5 mg IM Q6H PRN PRN; Protocol PRN Reason: NAUSEA/VOMITING Last Admin: 01/12/20 08:19 Dose: 12.5 mg Documented by: Psyllium Hydrophilic Mucilloid (Metamucil) 1 packet PO DAILY PRN PRN PRN Reason: Constipation Senna/Docusate Sodium (Senokot-S, Desirae-Colace) 2 tablet PO BID PRN PRN PRN Reason: Constipation Senna/Docusate Sodium (Senokot-S, Desirae-Colace) 2 tablet PO BID [facility] Last Admin: 01/12/20 09:55 Dose: 2 tablet Documented by: Sodium Chloride () 10 - 40 ml IV UD PRN PRN Reason: SALINE FLUSH Last Admin: 01/12/20 07:35 Dose: 10 ml Documented by: Sodium Chloride () 10 - 40 ml IV UD PRN PRN Reason: SALINE FLUSH STROKE Vital Signs/Narrative: Vital Signs Temp Pulse Resp BP Pulse Ox 01/12/20 09:54 73 01/12/20 09:48 98.8 F 73 16 144/96 H 94 Medical Necessity - Tobacco Use Smoking Status: Former smoker Tobacco Use: Non-smoker Assessment/Plan All Active Problems Displaced dome fracture of right acetabulum (Acute) Preop cardiovascular exam (Acute) 1. Right hip displaced hardware - ortho following, POD#2. post op ptot. leukocytosis reacting to surgery, doubt infection at this time, improved. recheck in AM. Hgb improved without intervention. Pt is doing poorly with toe touch weight bearing per PT notes. He did ambulate. 2. Hx CAD, prior CABG - stress test shows ejection fraction of 40 to 45%, no ischemia. Mild fish. 3. HTN - controlled. 4. History of prostate cancer-in remission. 5. Probable CKD stage III-stable DVT ppx: per ortho. Discharge planning-SNF vs Rehab unit. This patient was seen by Florin Dove PA-C under the supervision of Doctor Nate. <Peter Sullivan - Last Filed: 01/12/20 14:20> Vitals/I&O's: Vital Signs Temp Pulse Resp BP Pulse Ox 98.8 F 73 16 144/96 H 94 01/12/20 09:48 01/12/20 09:54 01/12/20 09:48 01/12/20 09:48 01/12/20 09:48 Oxygen Flow Rate (L/min) 2 Oxygen Delivery Method Room Air Weight: 135 lb 2.294 oz Body Mass Index (BMI) 23.9 Intake and Output for Last 24 Hours 01/10/20 01/11/20 01/12/20 23:59 23:59 23:59 Intake Total 2962 / 3262 2012 370 / 370 Output Total 975 / 1175 1200 / 1200 200 / 200 Balance 1986 813 / 913 170 / 170 Microbiology Past 72 Hours 01/10/20 14:00 Tissue - Hip Gram Stain - Final 01/10/20 14:00 Tissue - Hip Wound Culture - Preliminary No growth-Final to follow 01/10/20 16:00 Tissue - Hip Gram Stain - Final 01/10/20 16:00 Tissue - Hip Wound Culture - Preliminary No growth-Final to follow 01/10/20 14:00 Tissue - Hip Gram Stain - Final Laboratory Results 01/12/20 05:35: WBC 15.4 H, RBC 3.56 L, Hgb 11.3 L, Hct 34.4 L, MCV 96.6 H D, MCH 31.7, MCHC 32.8 D, RDW Std Deviation 45.4 H, RDW Coeff of Eric 12.8, Plt Count 242, MPV 10.3, Immature Gran % (Auto) 0.700, Neut % (Auto) 89.9 H, Lymph % (Auto) 3.9 L, [place] % (Auto) 5.3, Eos % (Auto) 0.1, Baso % (Auto) 0.1, Absolute Neuts (auto) 13.8 H, Absolute Lymphs (auto) 0.60 L, Nucleated RBC % 0 01/12/20 05:35: Sodium 131 L, Potassium 4.2, Chloride 99, Carbon Dioxide 23.0, Anion Gap 9, BUN 25 H, Creatinine 1.32 H, Estim Creat Clear Calc 38.32, Est GFR (MDRD) Af Amer 68, Est GFR (MDRD) Non-Af 56 L, BUN/Creatinine Ratio 18.9, Glucose 133 H, Calcium 8.7 Current Medications Acetaminophen (Tylenol) 1,000 mg PO Q8 [facility] Last Admin: 01/12/20 06:53 Dose: 1,000 mg Documented by: Al Hydroxide/Mg Hydroxide (Mylanta Ii) 30 ml PO Q6H PRN PRN PRN Reason: Gastric Burning Last Admin: 01/12/20 07:35 Dose: 30 ml Documented by: Aspirin (Aspirin, Baby) 81 mg PO DAILY@0800 [facility] Last Admin: 01/12/20 09:54 Dose: 81 mg Documented by: Atorvastatin Calcium (Lipitor) 40 mg PO QHS [facility] Last Admin: 01/11/20 22:42 Dose: 40 mg Documented by: Bisacodyl (Dulcolax) 5 mg PO DAILY PRN PRN PRN Reason: Constipation Last Admin: 01/12/20 09:55 Dose: 5 mg Documented by: Bisacodyl (Dulcolax) 10 mg RECTAL DAILY PRN PRN Reason: Constipation Last Admin: 01/12/20 04:01 Dose: 10 mg Documented by: Enoxaparin Sodium (Lovenox) 40 mg SC DAILY [facility] Last Admin: 01/12/20 09:55 Dose: 40 mg Documented by: Enteral Nutritional Formula (Ensure Surgery) 237 ml PO TIDCM [facility] Last Admin: 01/12/20 09:55 Dose: 237 ml Documented by: Famotidine (Pepcid) 20 mg PO DAILY [facility] Last Admin: 01/12/20 09:54 Dose: 20 mg Documented by: Glycerin (Sani-Supp) 1 supp RECTAL DAILY PRN PRN PRN Reason: Constipation Insulin Human Lispro (Humalog Kwikpen (Bkc)) 1 - 6 unit SC Q4H PRN PRN; Protocol PRN Reason: BG>/= 180, SEE PROTOCOL Metoprolol Tartrate (Lopressor (Beta Tony)) 12.5 mg PO BID [facility] Last Admin: 01/12/20 09:54 Dose: 12.5 mg Documented by: Morphine Sulfate () 2 mg IV Q3H PRN PRN PRN Reason: Pain Score 6-10/10 Last Admin: 01/12/20 04:01 Dose: 2 mg Documented by: Ondansetron HCl (Zofran) 4 mg IV Q8H PRN PRN PRN Reason: NAUSEA Last Admin: 01/12/20 07:35 Dose: 4 mg Documented by: Oxycodone HCl (Oxyir) 5 mg PO Q4H PRN PRN PRN Reason: Pain Score 4-5/10 Last Admin: 01/09/20 14:33 Dose: 5 mg Documented by: Polyethylene Glycol (Miralax) 17 gm PO BID [facility] Last Admin: 01/12/20 09:55 Dose: 17 gm Documented by: Promethazine HCl (Phenergan) 12.5 mg IM Q6H PRN PRN; Protocol PRN Reason: NAUSEA/VOMITING Last Admin: 01/12/20 08:19 Dose: 12.5 mg Documented by: Psyllium Hydrophilic Mucilloid (Metamucil) 1 packet PO DAILY PRN PRN PRN Reason: Constipation Senna/Docusate Sodium (Senokot-S, Desirae-Colace) 2 tablet PO BID PRN PRN PRN Reason: Constipation Senna/Docusate Sodium (Senokot-S, Desirae-Colace) 2 tablet PO BID [facility] Last Admin: 01/12/20 09:55 Dose: 2 tablet Documented by: Sodium Chloride () 10 - 40 ml IV UD PRN PRN Reason: SALINE FLUSH Last Admin: 01/12/20 07:35 Dose: 10 ml Documented by: Sodium Chloride () 10 - 40 ml IV UD PRN PRN Reason: SALINE FLUSH Addendum: Dr. Sullivan I personally examined the patient and reviewed the chart. I agree with the above. 34-year-old male had a previous right total hip in 2013 presents after a fall on the right side about 9 months ago. He had some pain and went to the ER which did not show any acute fracture therefore he was discharged home. He is to continue ambulating and then 4 days ago he felt a pop and much more significant pain. He is unable to lift the leg and is extremely tender to palpation today. He had some EKG changes therefore cardiology was consulted for evaluation they did a dobutamine stress test which did not demonstrate any ischemia and therefore they felt he was low risk for surgery. Will consult PT/OT for evaluation to help before and after surgery and he will likely need a senior care facility at discharge. Hopefully we can proceed with surgery tomorrow however that depends on the OR schedule and if necessary could potentially keep here until Monday for surgery. 01/10/2020: Doing well today, pain is a bit better controlled. He is having surgery today so we will continue with PT and OT and plan for discharge to a senior care facility when able 01/11/2020: He is doing well after surgery, pain is much better controlled he did work with physical therapy yesterday and will see how he is doing today. He may be able to transfer to the rehab unit on discharge on Monday otherwise may need test day if the beginning part of the week for a senior care facility placement. 01/12/2020: Has some increased pain today from yesterday. He is also been complaining to nursing staff about being constipated, he was started on a stool softener as well as MiraLAX twice daily and had enemas as well as suppositories, he had a small hard bowel movement yesterday and nothing since then. He has had increasing nausea. Will obtain abdominal x-ray today to further evaluate his abdomen. May need to be more aggressive with mag citrate and or possibly even lactulose. Continue with PT/OT and plan for likely senior care facility placement for rehab as an outpatient. Inpatient E&M: 84490 Subs Hosp L2
--- NOTE | 2020-01-12 14:17 | RAD_ITS ---
STUDY: X-RAY - ABDOMEN/PELVIS REASON FOR EXAM: Male, 74 years old. intractable nausea TECHNIQUE: Single AP view of the abdomen / pelvis. COMPARISON: 01/10/2020 11 x-ray FINDINGS: Normal visualized lung bases. There is an unremarkable bowel gas pattern. There is no demonstrated free abdominal air. The visualized liver, spleen and kidneys are grossly normal in size and morphology. Normal soft tissue structures. Fusion hardware of the lumbar spine. Right hip replacement noted, similar since 01/10/2020. RAD/Abdomen Single View (Portable) IMPRESSION: Nonobstructive bowel gas pattern. Stable appearance of right hip replacement. Electronically Signed: Gustavo Padilla MD ([place]) at 14:55 EDT , Service support ,
[2020-01-12 15:53] VITALS: BP 145/70; PULSE 79; RESP 18; TEMP 36.8; O2SAT 94
--- NOTE | 2020-01-12 16:18 | NURSING ---
SSE enema given- pt with some soft brown liquid/pieces shortly thereafter on bedpan. pt assisted oob to bsc. states has voided while up to bsc.
[2020-01-12] MEDS: 0.9% Normal Saline 1,000 ML 75 ML IV (17:31)
[2020-01-12] MEDS: Magnesium Citrate 300 ML PO (22:59)
[2020-01-12 23:00] VITALS: BP 135/68; PULSE 72; PULSE 74; RESP 18
[2020-01-12] MEDS: Atorvastatin Calcium 40 MG Tablet PO (23:02)
[2020-01-12 23:03] VITALS: BP 135/68; PULSE 72; RESP 18; TEMP 36.8; O2SAT 94
[2020-01-13] MEDS: Morphine 2 MG/ML Syringe IV ×2 (01:22→07:46)
[2020-01-13 04:20] VITALS: BP 124/63; PULSE 70; RESP 18; TEMP 36.8; O2SAT 94
[2020-01-13] MEDS: Acetaminophen 500 MG Tablet 1000 MG PO ×2 (04:24→14:42)
[2020-01-13] MEDS: oxyCODONE 5 MG Tablet PO ×2 (04:24→12:41)
[2020-01-13 04:44] VITALS: RESP 18
[2020-01-13 05:30] LABS: Hemoglobin 11.5 g/dL (13.0-16.5); Mean Corp Hgb Conc 33.8 g/dL (32-36); Mean Corpuscular Hgb 32.2 pg (27.0-32.0); Mean Corpuscular Volume 95.2 fL (80-94); Mean Platelet Vol. 9.7 fl (6.2-12.0); Platelet Count 235 K/mm3 (150-450); RBC Distribution Width CV 13.1 % (11.6-14.6); RBC Distribution Width SD 45.5 fl (35.1-43.9); Red Blood Count 3.57 M/mm3 (4.6-6.2); White Blood Count 16.7 K/mm3 (4.4-11.0)
[2020-01-13 05:45] LABS: Anion Gap 8 (5-15); BUN 21 mg/dL (7-18); BUN/Creat Ratio 18.3 RATIO (10-20); Calcium,Total 8.3 mg/dL (8.5-10.1); Chloride 100 mmol/L (98-107); Creatinine, Serum 1.15 mg/dL (0.70-1.30); EST Glomerular Filtration Rate 66 mL/min (>60); Est Glom Filt Rate - Afr Amer 80 mL/min (>60); Estimated Creatinine Clearance 43.98 ml/min; Glucose 126 mg/dL (74-106); Potassium 3.6 mmol/L (3.5-5.1); Sodium Level 133 mmol/L (136-145)
[2020-01-13] MEDS: 0.9% Saline Lock 10 ML Syringe IV ×2 (07:09→07:46)
[2020-01-13 07:28] VITALS: BP 129/74; PULSE 70; RESP 18; TEMP 37; O2SAT 95
[2020-01-13] MEDS: Ondansetron 4 MG/2 ML Vial IV (07:46)
--- NOTE | 2020-01-13 07:52 | NURSING ---
PT C/O BACK PAIN 7, R HIP PAIN 2-3. MEDICATED PER PRN ORDERS. ALSO C/O NAUSEA. PT STATES DOES NOT WANT ANYTHING FOR BREAKFAST. ENCOURAGED PT TO TRY TO EAT DUE TO GETTING THE PAIN MEDS & MAY HELP THE NAUSEA.
--- NOTE | 2020-01-13 08:54 | CASEMGMT ---
Addendum entered by Hattie Lowe 01/13/20 15:51: SW spoke with PT. Pt recommending TCU at discharge. APOLLO placed a call to Rosa Elena with [facility] and updated her that PT is recommending TCU. APOLLO placed a call to Denise in TCU, Denise states TCU is able to accept pt today. SW in to speak with pt and pt's Kathy present in room. SW updated pt and Kathy on PT recommendation of TCU. Pt and Kathy agreeable to TCU. Plan: TCU today Original Note: Social Work Note SW received message from Rosa Elena with [facility] stating pt is approved for [facility] and able to discharge today if medically cleared. SW to speak with pt to confirm discharge plans. Hattie Lowe DESULFURIZER HAND, THRASHER FEEDER
[2020-01-13 09:15] VITALS: BP 129/74; PULSE 70
[2020-01-13] MEDS: Aspirin 81 MG TAB.CHEW PO (09:15)
[2020-01-13] MEDS: Metoprolol Tartrate 25 MG Tablet 12.5 MG PO (09:15)
[2020-01-13] MEDS: Enoxaparin 40 MG/0.4 ML Syringe SC (09:16)
[2020-01-13] MEDS: Senna/Docusate Sodium 1 Tablet 2 TABLET PO (09:17)
[2020-01-13] MEDS: Famotidine 20 MG Tablet PO (09:17)
--- NOTE | 2020-01-13 10:26 | PCM.EXTCARCO ---
- Diet 01/10/20 23:16 Diet: Regular Diet Is pt able to select menu?: Yes - Routine Orders/Code Status Suppository Type: Dulcolax 10mg Suppository Frequency: Daily PRN Routine Lab Work: CBC - 5 DAYS, BMP - 5 DAYS - Wound(s) R elbow Wound Type: Abrasion RIGHT ANTERIOR HIP Wound Type: Surgical Incision - Therapies Weight Bearing: Toe-touch weight bearing Physical Therapy: Eval and Treat Occupational Therapy: Eval and Treat - Problem/Diagnosis (1) Displaced dome fracture of right acetabulum Status: Acute Current Visit: Yes (2) Constipation Status: Acute Current Visit: Yes (3) Hypertension Status: Chronic Current Visit: Yes (4) Prostate cancer Status: Chronic Current Visit: Yes (5) Arthritis Status: Chronic Current Visit: No (6) CAD (coronary artery disease) Status: Chronic Current Visit: No - Allergies/Procedures Done in Hospital Allergies/Adverse Reactions: Allergies ciprofloxacin [From Cipro] Adverse Reaction (Verified 01/08/20 16:16) Other PANCREATITIS ciprofloxacin HCl [From Cipro] Adverse Reaction (Verified 01/08/20 16:16) Other PANCREATITIS erythromycin base [Erythromycin Base] Adverse Reaction (Verified 01/08/20 16:16) Other LUMPS ON BODY potassium Adverse Reaction (Verified 01/08/20 16:16) Other POTASSIUM LEVELS ARE ELEVATED Procedures: None - Type of Care/Length of Stay Estimated LOS: Convalescent Care Less Than 30 days Type of Care Needed: Skilled Rehab Potential: Fair Prognosis: Fair - Additional Orders/Day of Discharge Day of Discharge: 01/13/20 - Dietary and Speech Recommendations Dietitian Recommendations/Changes: Continue regular diet - Follow Up Care Primary Care Physician: Bladimir Bazan DO [Primary Care Provider] - Please follow up with your Primary Care Physician in: 2 weeks Please Follow Up With: Elan Jacinto MD When: as directed
--- NOTE | 2020-01-13 10:41 | NURSING ---
PT RESTING QUIETLY IN BED WITH EYES CLOSED, RESP EASY
--- NOTE | 2020-01-13 13:34 | PCM.DC.SUM ---
<Florin Dove - Last Filed: 01/13/20 13:34> Discharge Date and Diagnosis - Problem List Patient Problems: Active and Suspected Problems Displaced dome fracture of right acetabulum (Acute) Preop cardiovascular exam (Acute) Constipation (Acute) Date of Admission: 01/08/20 Date of Discharge: 01/13/20 - Primary Discharge Diagnosis Acute Problems: Active Problems Displaced dome fracture of right acetabulum (Acute) Constipation - Secondary Discharge Diagnosis Chronic Problems: Chronic Problems CAD (coronary artery disease) (Chronic) Arthritis (Chronic) Hypertension (Chronic) Prostate cancer (Chronic) Hospital Course and Treatment Imaging Results: RAD/HIP, UNI W/ Pelvis 2-3 Views IMPRESSION: Prosthetic right femoral head has eroded from the acetabulum into the inferior right ilium and a medial cephalad direction. Femoral shaft component remains intact without periprosthetic fracture or disruption. The remainder of the pelvic ring and left hip remain unchanged. Bilateral spinal fusion hardware included in the [id number] and appears unchanged as excluded. CT/Pelvis without IV Contrast IMPRESSION: The total right hip arthroplasty hardware remains located and has migrated medial and cephalad out of the acetabulum through the inferior ilium and lies on the medial surface of the right ilium and covered over by the attenuated iliopsoas muscle. 2D TTE: Interpretation Summary Mildly dilated left ventricle. The estimated ejection fraction is 40-45 %. Stage 1 diastolic dysfunction. Mildly dilated right ventricle. Mild global right ventricular systolic dysfunction. Trivial tricuspid valve insufficiency. Right ventricular systolic pressure estimated to be 27 mmHg. Mild (1+) aortic valve insufficiency. There are regional wall motion abnormalities as specified. There is no comparison study available. Stress echo: Interpretation Summary The estimated ejection fraction is 40-45 %. Normal, adequate, dobutamine echocardiogram. Negative for ischemia by EKG and echocardiographic criteria. No anginal symptoms noted. Rare PVCs noted. Appropriate blood pressure response to dobutamine. Final LVEF is 65%. Test terminated due to the attainment target heart rate. Decrease sensitivity due to poor echo windows requiring Definity agent. The study was technically difficult. Contrast injection was performed. RAD/Hip 1 view with Pelvis IMPRESSION: Intraoperative fluoroscopy of right hip arthroplasty revision. RAD/Hip Min 2 Views (Portable) IMPRESSION: Right total hip arthroplasty elevated in position likely due to chronic right acetabular disease and placed more cranial for stability RAD/Abdomen Single View (Portable) IMPRESSION: Nonobstructive bowel gas pattern. Stable appearance of right hip replacement. Consults: Pedro Pablo - cardiology Ophelia - Ortho Operations: - - 01/09 right total hip revision Procedures: 2-D Echocardiogram, Stress test Summary of Care Provided: Hospital course: The patient is a 74 year old M with pmhx of CAD with prior CABG, CKDIII, HTN, prostate cancer in remission, with prior right total hip who had increasing pain and inability to ambulate, and a fall with sudden worsening of pain, and feeling his hip pop out. XR and pelvic CT showed displacement of the acetabulum. He was admitted to the med surg unit. Cardiology was consulted as he had elevated risk given his hx. He had a 2D TTE and stress echo which were unremarkable, results as above. He was taken to the OR for revision with Dr. Jacinto on 01/09 and tolerated the procedure well. He did poorly with toe touch weight bearing after the surgery and has difficulty sticking to TTWB only. He did ambulate. He developed severe constipation requiring multiple enemas and laxatives, which is now resolved. He will continue multiple daily stool softeners at least while on pain meds. Per Dr. Jacinto he will stay on 81 mg aspirin BID for DVT ppx for 4 weeks at [place]. He will need follow up with Dr. Jacinto as directed, and with his PCP in 1-2 weeks. This patient was seen by Florin Dove PA-C under the supervision of Doctor Lucas. [] Patient Problems: Active and Suspected Problems Displaced dome fracture of right acetabulum (Acute) Preop cardiovascular exam (Acute) Constipation (Acute) - Physical Exam Vitals/I&O's: Vital Signs Temp Pulse Resp BP Pulse Ox 98.6 F 70 18 129/74 H 95 01/13/20 07:28 01/13/20 09:15 01/13/20 07:28 01/13/20 09:15 01/13/20 07:28 Oxygen Flow Rate (L/min) 2 Oxygen Delivery Method Room Air Weight: 135 lb 2.294 oz Body Mass Index (BMI) 23.9 Intake and Output for Last 24 Hours 01/11/20 01/12/20 01/13/20 23:59 23:59 23:59 Intake Total 2012 370 / 670 1400 / 1400 Output Total 1200 / 1200 200 / 1250 1450 / 1450 Balance 813 / 913 170 / -580 -50 / -50 General: Alert, Oriented x3, Cooperative HEENT: Atraumatic, PERRLA, EOMI, Normocephalic Neck: Supple, No JVD, Negative Carotid Bruits Lungs: Clear to auscultation, Normal air movement Cardiovascular: Regular rate, No murmurs Abdomen: Bowel Sounds Present, Soft, Non Tender Extremities: No edema, Capillary Refill Less than 3 Seconds Skin: No rashes, No breakdown Musculoskeletal: No Tenderness to Palpation of Joints or Extremities Neurological: Cranial nerves II-XII grossly intact Psych/Mental Status: Normal Affect, Appropriate, Alert and oriented to time, place, person, mood and affect Microbiology Past 72 Hours 01/10/20 16:00 Tissue - Hip Gram Stain - Final 01/10/20 16:00 Tissue - Hip Wound Culture - Final No growth aerobically. 01/10/20 16:00 Tissue - Hip Anaerobic Culture - Preliminary No growth in 48 hours. 01/10/20 14:00 Tissue - Hip Gram Stain - Final 01/10/20 14:00 Tissue - Hip Wound Culture - Final No growth aerobically. 01/10/20 14:00 Tissue - Hip Anaerobic Culture - Preliminary No growth in 48 hours. 01/10/20 14:00 Tissue - Hip Gram Stain - Final 01/10/20 14:00 Tissue - Hip Wound Culture - Final No growth aerobically. 01/10/20 14:00 Tissue - Hip Anaerobic Culture - Preliminary No growth in 48 hours. Laboratory Results 01/13/20 05:20: WBC 16.7 H, RBC 3.57 L, Hgb 11.5 L, Hct 34.0 L, MCV 95.2 H, MCH 32.2 H, MCHC 33.8, RDW Std Deviation 45.5 H, RDW Coeff of Eric 13.1, Plt Count 235, MPV 9.7 01/13/20 05:20: Sodium 133 L, Potassium 3.6, Chloride 100, Carbon Dioxide 25.0, Anion Gap 8, BUN 21 H, Creatinine 1.15, Estim Creat Clear Calc 43.98, Est GFR (MDRD) Af Amer 80, Est GFR (MDRD) Non-Af 66, BUN/Creatinine Ratio 18.3, Glucose 126 H, Calcium 8.3 L Current Medications Acetaminophen (Tylenol) 1,000 mg PO Q8 [facility] Last Admin: 01/13/20 04:24 Dose: 1,000 mg Documented by: Al Hydroxide/Mg Hydroxide (Mylanta Ii) 30 ml PO Q6H PRN PRN PRN Reason: Gastric Burning Last Admin: 01/12/20 07:35 Dose: 30 ml Documented by: Aspirin (Aspirin, Baby) 81 mg PO DAILY@0800 [facility] Last Admin: 01/13/20 09:15 Dose: 81 mg Documented by: Atorvastatin Calcium (Lipitor) 40 mg PO QHS [facility] Last Admin: 01/12/20 23:02 Dose: 40 mg Documented by: Bisacodyl (Dulcolax) 5 mg PO DAILY PRN PRN PRN Reason: Constipation Last Admin: 01/12/20 09:55 Dose: 5 mg Documented by: Bisacodyl (Dulcolax) 10 mg RECTAL DAILY PRN PRN Reason: Constipation Last Admin: 01/12/20 04:01 Dose: 10 mg Documented by: Enoxaparin Sodium (Lovenox) 40 mg SC DAILY [facility] Last Admin: 01/13/20 09:16 Dose: 40 mg Documented by: Enteral Nutritional Formula (Ensure Surgery) 237 ml PO TIDCM [facility] Last Admin: 01/13/20 12:38 Dose: Not Given Documented by: Famotidine (Pepcid) 20 mg PO DAILY [facility] Last Admin: 01/13/20 09:17 Dose: 20 mg Documented by: Glycerin (Sani-Supp) 1 supp RECTAL DAILY PRN PRN PRN Reason: Constipation Insulin Human Lispro (Humalog Kwikpen (Bkc)) 1 - 6 unit SC Q4H PRN PRN; Protocol PRN Reason: BG>/= 180, SEE PROTOCOL Metoprolol Tartrate (Lopressor (Beta Tony)) 12.5 mg PO BID [facility] Last Admin: 01/13/20 09:15 Dose: 12.5 mg Documented by: Morphine Sulfate () 2 mg IV Q3H PRN PRN PRN Reason: Pain Score 6-10/10 Last Admin: 01/13/20 07:46 Dose: 2 mg Documented by: Ondansetron HCl (Zofran) 4 mg IV Q8H PRN PRN PRN Reason: NAUSEA Last Admin: 01/13/20 07:46 Dose: 4 mg Documented by: Oxycodone HCl (Oxyir) 5 mg PO Q4H PRN PRN PRN Reason: Pain Score 4-5/10 Last Admin: 01/13/20 12:41 Dose: 5 mg Documented by: Polyethylene Glycol (Miralax) 17 gm PO BID [facility] Last Admin: 01/13/20 09:20 Dose: Not Given Documented by: Psyllium Hydrophilic Mucilloid (Metamucil) 1 packet PO DAILY PRN PRN PRN Reason: Constipation Senna/Docusate Sodium (Senokot-S, Desirae-Colace) 2 tablet PO BID PRN PRN PRN Reason: Constipation Senna/Docusate Sodium (Senokot-S, Desirae-Colace) 2 tablet PO BID [facility] Last Admin: 01/13/20 09:17 Dose: 2 tablet Documented by: Sodium Chloride () 10 - 40 ml IV UD PRN PRN Reason: SALINE FLUSH Last Admin: 01/13/20 07:46 Dose: 10 ml Documented by: Sodium Chloride () 10 - 40 ml IV UD PRN PRN Reason: SALINE FLUSH Discharge Diet: Low fat/ Low Cholesterol, 2000 mg Sodium Diet Discharge Activity: Return to Normal Activity Home Medications: Medications to take at Discharge Acetaminophen [Tylenol] 1,000 mg PO Q8 tab 01/13/20 Aspirin [Aspirin, Baby] 81 mg PO BID tab.chew 01/13/20 Aspirin [Aspirin, Baby] 81 mg PO DAILY #0 01/13/20 Ensure Surgery 237 ml PO TIDCM liquid 01/13/20 Metoprolol Tartrate [Lopressor (beta tony)] 12.5 mg PO BID tab 01/13/20 Oxycodone [Oxyir] 5 mg PO Q6H PRN PRN 3 Days #12 tab 01/13/20 Polyethylene Glycol 3350 [Miralax] 17 gm PO BID packet 01/13/20 Psyllium [Metamucil] 1 packet PO DAILY PRN PRN packet 01/13/20 Senna/Docusate Sodium [Senokot-S] 2 tab PO BID PRN PRN tab 01/13/20 Following Prescrptions Were Given to Patient: Oxycodone [Oxyir] 5 mg PO Q6H PRN PRN 3 Days #12 tab PRN Reason: Pain Score 6-10/10 Prescription Printed Primary Care Physician: Bladimir Bazan DO [Primary Care Provider] - Please follow up with your Primary Care Physician in: 2 weeks Please Follow Up With: Elan Jacinto MD When: as directed Disposition: Longterm facility Minutes spent on discharge:: 35 Patient Condition:: Stable Medical Necessity - Tobacco Use Smoking Status: Former smoker Tobacco Use: Non-smoker Meaningful Use Info Meaningful Use Diagnoses (Choose all that apply): None applicable <Levi Lucas - Last Filed: 01/13/20 14:24> Discharge Date and Diagnosis - Primary Discharge Diagnosis Acute Problems: Active Problems Displaced dome fracture of right acetabulum (Acute) Preop cardiovascular exam (Acute) Constipation (Acute) - Secondary Discharge Diagnosis Chronic Problems: Chronic Problems CAD (coronary artery disease) (Chronic) Arthritis (Chronic) Hypertension (Chronic) Prostate cancer (Chronic) Hospital Course and Treatment Summary of Care Provided: This patient was seen in conjunction with Florin AVENDAÑO. I have independently interviewed and examined the patient and reviewed pertinent history, examination findings, laboratory and plan of management. I have reviewed the note and agree with the documented findings with the few additional points. In brief, patient is 74-year-old gentleman with history of coronary artery disease, CABG, prostate cancer in remission and previous total hip arthroplasty by Dr. Carias in June 2013 was admitted with increased pain, inability to move after he had a pop and immediate pain while walking 4 days before admission. Patient had a fall about 9 months ago but did not reveal any fracture at that time even on CT scan and had chronic pain since then. In ED, x-ray of left hip and pelvis and then pelvis CT scan shows displacement of right hip prosthesis had from the acetabulum in medial capsular direction into inferior right ilium. Patient was seen by clinical appeals auditor and had stress echo which was unremarkable. Patient was taken to the OR by Dr. Jacinto on 01/09/2021 had direct anterior revision right total hip replacement, femoral and acetabular components. Patient also has severe constipation and required enemas and laxative. Currently on aspirin 81 mg twice daily and DVT prophylaxis for 4 weeks and then resume regular 81 mg daily. Discharge medication reconciliation done. Discharge follow-up instructions completed. Discharge process discussed with the patient and all questions were answered to patient's satisfaction. Total time spent, exact 35 minutes on discharge meds reconciliation, examination, coordination of care with nurses and ancillary staff, review of imaging and blood test and discussion with the patient on follow-up instructions I have discussed my assessment with Florin AVENDAÑO and orders have been reviewed. [] Clinical Impression(s) from Imaging Studies Hip/Pelvis X-Ray 01/08/20 17:18 IMPRESSION: Prosthetic right femoral head has eroded from the acetabulum into the inferior right ilium and a medial cephalad direction. Femoral shaft component remains intact without periprosthetic fracture or disruption. The remainder of the pelvic ring and left hip remain unchanged. Bilateral spinal fusion hardware included in the [id number] and appears unchanged as excluded. Pelvis CT 01/08/20 18:52 IMPRESSION: The total right hip arthroplasty hardware remains located and has migrated medial and cephalad out of the acetabulum through the inferior ilium and lies on the medial surface of the right ilium and covered over by the attenuated iliopsoas muscle. Hip/Pelvis X-Ray 01/10/20 12:30 IMPRESSION: Intraoperative fluoroscopy of right hip arthroplasty revision. Electronically Signed: Radhames Denton, at 16:04 EDT Tel , Service support , Hip X-Ray 01/10/20 16:20 IMPRESSION: Right total hip arthroplasty elevated in position likely due to chronic right acetabular disease and placed more cranial for stability KUB X-Ray 01/12/20 14:17 IMPRESSION: Nonobstructive bowel gas pattern. Stable appearance of right hip replacement. Subjective: Seen and examined. Patient does not have right hip pain but more on proximal right knee. No chest pain or shortness of breath. Denies lower tract symptoms. General: Alert, Oriented x3, Cooperative HEENT: Atraumatic, PERRLA, EOMI, Normocephalic Oral: No Gingival or Mucosal Lesions/ Ulcerations Neck: Supple, No JVD, Negative Carotid Bruits Lungs: Air entry diminished in bilateral lung bases. No crepitation/rhonchi. On incentive spirometry Cardiovascular: Regular rate, Regular Rhythm, Normal S1, Normal S2, No murmurs Abdomen: Bowel Sounds Present, Soft, Non Tender, Non-Distended : No renal angle tenderness. No suprapubic tenderness. Extremities: No edema, Capillary Refill Less than 3 Seconds Skin: No rashes, No breakdown Musculoskeletal: No Tenderness to Palpation of Joints or Extremities. Right hip dressing is dry Neurological: Cranial nerves II-XII grossly intact, Deep Tendon Reflexes 2+/4 and Symmetrical, Neuro grossly intact Psych/Mental Status: Normal Affect, Appropriate - Physical Exam Vitals/I&O's: Vital Signs Temp Pulse Resp BP Pulse Ox 98.6 F 70 18 129/74 H 95 01/13/20 07:28 01/13/20 09:15 01/13/20 07:28 01/13/20 09:15 01/13/20 07:28 Oxygen Flow Rate (L/min) 2 Oxygen Delivery Method Room Air Weight: 135 lb 2.294 oz Body Mass Index (BMI) 23.9 Intake and Output for Last 24 Hours 01/11/20 01/12/20 01/13/20 23:59 23:59 23:59 Intake Total 2012 370 / 670 1400 / 1400 Output Total 1200 / 1200 200 / 1250 1450 / 1450 Balance 813 / 913 170 / -580 -50 / -50 Microbiology Past 72 Hours 01/10/20 16:00 Tissue - Hip Gram Stain - Final 01/10/20 16:00 Tissue - Hip Wound Culture - Final No growth aerobically. 01/10/20 16:00 Tissue - Hip Anaerobic Culture - Preliminary No growth in 48 hours. 01/10/20 14:00 Tissue - Hip Gram Stain - Final 01/10/20 14:00 Tissue - Hip Wound Culture - Final No growth aerobically. 01/10/20 14:00 Tissue - Hip Anaerobic Culture - Preliminary No growth in 48 hours. 01/10/20 14:00 Tissue - Hip Gram Stain - Final 01/10/20 14:00 Tissue - Hip Wound Culture - Final No growth aerobically. 01/10/20 14:00 Tissue - Hip Anaerobic Culture - Preliminary No growth in 48 hours. Laboratory Results 01/13/20 05:20: WBC 16.7 H, RBC 3.57 L, Hgb 11.5 L, Hct 34.0 L, MCV 95.2 H, MCH 32.2 H, MCHC 33.8, RDW Std Deviation 45.5 H, RDW Coeff of Eric 13.1, Plt Count 235, MPV 9.7 01/13/20 05:20: Sodium 133 L, Potassium 3.6, Chloride 100, Carbon Dioxide 25.0, Anion Gap 8, BUN 21 H, Creatinine 1.15, Estim Creat Clear Calc 43.98, Est GFR (MDRD) Af Amer 80, Est GFR (MDRD) Non-Af 66, BUN/Creatinine Ratio 18.3, Glucose 126 H, Calcium 8.3 L Current Medications Acetaminophen (Tylenol) 1,000 mg PO Q8 [facility] Last Admin: 01/13/20 04:24 Dose: 1,000 mg Documented by: Al Hydroxide/Mg Hydroxide (Mylanta Ii) 30 ml PO Q6H PRN PRN PRN Reason: Gastric Burning Last Admin: 01/12/20 07:35 Dose: 30 ml Documented by: Aspirin (Aspirin, Baby) 81 mg PO DAILY@0800 [facility] Last Admin: 01/13/20 09:15 Dose: 81 mg Documented by: Atorvastatin Calcium (Lipitor) 40 mg PO QHS [facility] Last Admin: 01/12/20 23:02 Dose: 40 mg Documented by: Bisacodyl (Dulcolax) 5 mg PO DAILY PRN PRN PRN Reason: Constipation Last Admin: 01/12/20 09:55 Dose: 5 mg Documented by: Bisacodyl (Dulcolax) 10 mg RECTAL DAILY PRN PRN Reason: Constipation Last Admin: 01/12/20 04:01 Dose: 10 mg Documented by: Enoxaparin Sodium (Lovenox) 40 mg SC DAILY [facility] Last Admin: 01/13/20 09:16 Dose: 40 mg Documented by: Enteral Nutritional Formula (Ensure Surgery) 237 ml PO TIDCM [facility] Last Admin: 01/13/20 12:38 Dose: Not Given Documented by: Famotidine (Pepcid) 20 mg PO DAILY [facility] Last Admin: 01/13/20 09:17 Dose: 20 mg Documented by: Glycerin (Sani-Supp) 1 supp RECTAL DAILY PRN PRN PRN Reason: Constipation Insulin Human Lispro (Humalog Kwikpen (Bkc)) 1 - 6 unit SC Q4H PRN PRN; Protocol PRN Reason: BG>/= 180, SEE PROTOCOL Metoprolol Tartrate (Lopressor (Beta Tony)) 12.5 mg PO BID [facility] Last Admin: 01/13/20 09:15 Dose: 12.5 mg Documented by: Morphine Sulfate () 2 mg IV Q3H PRN PRN PRN Reason: Pain Score 6-10/10 Last Admin: 01/13/20 07:46 Dose: 2 mg Documented by: Ondansetron HCl (Zofran) 4 mg IV Q8H PRN PRN PRN Reason: NAUSEA Last Admin: 01/13/20 07:46 Dose: 4 mg Documented by: Oxycodone HCl (Oxyir) 5 mg PO Q4H PRN PRN PRN Reason: Pain Score 4-5/10 Last Admin: 01/13/20 12:41 Dose: 5 mg Documented by: Polyethylene Glycol (Miralax) 17 gm PO BID [facility] Last Admin: 01/13/20 09:20 Dose: Not Given Documented by: Psyllium Hydrophilic Mucilloid (Metamucil) 1 packet PO DAILY PRN PRN PRN Reason: Constipation Senna/Docusate Sodium (Senokot-S, Desirae-Colace) 2 tablet PO BID PRN PRN PRN Reason: Constipation Senna/Docusate Sodium (Senokot-S, Desirae-Colace) 2 tablet PO BID [facility] Last Admin: 01/13/20 09:17 Dose: 2 tablet Documented by: Sodium Chloride () 10 - 40 ml IV UD PRN PRN Reason: SALINE FLUSH Last Admin: 01/13/20 07:46 Dose: 10 ml Documented by: Sodium Chloride () 10 - 40 ml IV UD PRN PRN Reason: SALINE FLUSH Inpatient E&M: [id number] [place] [id number]
[2020-01-13 14:30] VITALS: BP 129/70; PULSE 63; RESP 18; TEMP 36.7; O2SAT 93
--- NOTE | 2020-01-13 16:14 | NURSING ---
report called to Martha on [facility]CU
[2020-01-13 16:43] VITALS: BP 129/70; PULSE 63; RESP 18; TEMP 36.7; O2SAT 93
== END 2020-01-13 16:40 | disposition skilled nursing facility (03) | DRG 467 ==
LOC: ED 19:17 → MS3 19:47
PROVIDERS: Internal Medicine Cardiovascular Disease; Physician Assistant; Specialist; Admitting Provider Internal Medicine; Emergency Provider Emergency Medicine; PCP Preventive Medicine Occupational Medicine; Visit Provider Internal Medicine
PROC: 0SR902Z Replacement of Right Hip Joint with Metal on Polyethylene Synthetic Substitute, Open Approach (ICD-10-PCS; principal; 2020-01-10 12:05)
DX: S32.481A Displaced dome fracture of right acetabulum, initial encounter for closed fracture (principal); T84.030A Mechanical loosening of internal right hip prosthetic joint, initial encounter; T84.020A Dislocation of internal right hip prosthesis, initial encounter; Y79.2 Prosthetic and other implants, materials and accessory orthopedic devices associated with adverse incidents; I25.10 Atherosclerotic heart disease of native coronary artery without angina pectoris; I12.9 Hypertensive chronic kidney disease with stage 1 through stage 4 chronic kidney disease, or unspecified chronic kidney disease; N18.3 Chronic kidney disease, stage 3 (moderate); K59.00 Constipation, unspecified; E78.5 Hyperlipidemia, unspecified; M19.90 Unspecified osteoarthritis, unspecified site; W18.09XA Striking against other object with subsequent fall, initial encounter; Y93.9 Activity, unspecified; Y92.9 Unspecified place or not applicable; Y99.9 Unspecified external cause status; Z79.82 Long term (current) use of aspirin; Z79.1 Long term (current) use of non-steroidal anti-inflammatories (NSAID); Z79.899 Other long term (current) drug therapy; I25.2 Old myocardial infarction; Z85.46 Personal history of malignant neoplasm of prostate; Z87.891 Personal history of nicotine dependence; Z98.1 Arthrodesis status; Z95.5 Presence of coronary angioplasty implant and graft; Z95.1 Presence of aortocoronary bypass graft
CPT/HCPCS: 36415; 72192; 73501; 73502; 74018; 76000; 80048; 80053; 80061; 80076; 84484; 85025; 85027; 85652; 86140; 87015; 87070; 87075; 87102; 87116; 87176; 87205; 87206; 87635; 88305; 88311; 93005; 93017; 93306; 93350; 97110; 97116; 97162; 97166; 97530; 97535; 97802; 97803; 99251; 99282; C1713; C1776; G2023; J7030; J7040; J7120; Q9957; A4216; C8928; G0463; J2405; U0003

== ENCOUNTER 2020-01-13 16:58 | Inpatient (IN) | payer MEDICARE, SELFPAY ==
[2020-01-10 10:28] VITALS: BMI 23.9
[2020-01-13 17:14] VITALS: BMI 24.6; BMI 24.7
[2020-01-13] MEDS: Ensure Surgery 237 ML LIQUID PO (18:24)
[2020-01-13] MEDS: Polyethylene Glycol 3350 17 GM PACKET PO (18:24)
[2020-01-13 18:25] VITALS: BP 129/70; PULSE 63
[2020-01-13] MEDS: Metoprolol Tartrate 25 MG Tablet 12.5 MG PO (18:25)
--- NOTE | 2020-01-13 20:15 | PCM.HP.STD ---
Problem List (1) Debility Status: Acute (2) Fecal impaction of colon Status: Acute (3) Appetite loss Status: Acute (4) Osteoarthritis Status: Chronic (5) CAD (coronary artery disease) Status: Chronic (6) Displaced dome fracture of right acetabulum Status: Acute Qualifiers: (7) Hypertension Status: Chronic (8) Prostate cancer Status: Chronic History of Present Illness Date of Admission: 01/13/20 Chief Complaint: Here for rehabilitation, strengthening, prior to discharge home with . 01/08/2020 The patient is a 74 year old Male with below past medical history presented to [facility] Emergency Department with fall, right hip pain. 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 01/08/2020 CT pelvis showed same as X-ray. Remote right total hip replacement. Fall 9 months ago. Right hip pain worsening. Labs ordered, Dr. Jacinto consulted. 01/08/2020 Admit to Hospital. Consult cardiology for clearance. EKG with new T wave inversions, anterior lateral leads. 01/08/2020 Echo mildly dilated left ventricle. EF 40 to 45% Stage 1 diastolic dysfunction. Mild global RV systolic dysfunction. 01/09/2020 Stress Echo normal dobutamine stress echo. 01/09/2020 Dr. Chamorro recommended adding Losartan after surgery. Start Atorvastatin. If stress test negative, low risk for planned surgery. 01/09/2020 PT/OT for senior care facility. 01/10/2020 Pain improved. 01/10/2020 Dr. Jacinto performed direct anterior revision right total hip replacement, femoral, acetabular components. 01/11/2020 Dr. Jacinto recommended aspirin twice daily x 4 weeks for DVT prophylaxis. PT at senior living facility or rehabilitation unit. Doxycycline after cultures, until negative. Pathologic specimens sent for prostate cancer. 01/12/2020 Patient constipated, treated with aggressive bowel regimen. 01/13/2020 Admit to TCU with debility, here for rehabilitation, strengthening, prior to discharge home with . Resident complaints of lack of appetite. Past Medical History Past Medical History (Chronic Problems): Chronic Problems CAD (coronary artery disease) (Chronic) Arthritis (Chronic) Hypertension (Chronic) Prostate cancer (Chronic) Osteoarthritis (Chronic) Allergies ciprofloxacin [From Cipro] Adverse Reaction (Verified 01/13/20 18:40) Other PANCREATITIS ciprofloxacin HCl [From Cipro] Adverse Reaction (Verified 01/13/20 18:40) Other PANCREATITIS erythromycin base [Erythromycin Base] Adverse Reaction (Verified 01/13/20 18:40) Other LUMPS ON BODY potassium Adverse Reaction (Verified 01/13/20 18:40) Other POTASSIUM LEVELS ARE ELEVATED Home Medications: Ambulatory Orders Medication Instructions Recorded Acetaminophen [Tylenol] 1,000 mg PO Q8 tab 01/13/20 Aspirin [Aspirin, Baby] 81 mg PO BID tab.chew 01/13/20 Aspirin [Aspirin, Baby] 81 mg PO DAILY #0 01/13/20 Ensure Surgery 237 ml PO TIDCM liquid 01/13/20 Metoprolol Tartrate [Lopressor 12.5 mg PO BID tab 01/13/20 (beta tony)] Oxycodone [Oxyir] 5 mg PO Q6H PRN PRN 3 Days #12 tab 01/13/20 Polyethylene Glycol 3350 [Miralax] 17 gm PO BID packet 01/13/20 Psyllium [Metamucil] 1 packet PO DAILY PRN PRN packet 01/13/20 Senna/Docusate Sodium [Senokot-S] 2 tab PO BID PRN PRN tab 01/13/20 Surgical History: coronary bypass surgery, total hip arthroplasty, - - s/p back surgeries Psychiatric History: No pertinent psych hx Lives: Spouse/ Significant Other Smoking Status: Former smoker Tobacco Use: Non-smoker Alcohol: None, Rare - *Family History Maternal History Items: Heart Disease Paternal History Items: Heart Disease Review of Systems Constitutional: Reports: Anorexia. Denies: Chills, Fever, Weight Change HEENT: Denies: Head Aches, Sinus Congestion, Sinus Drainage Cardiovascular: Denies: Chest Pain, Palpitations Respiratory: Denies: Cough, Shortness of breath at rest, Sputum production Gastrointestinal: Denies: Abdominal Pain, Nausea, Vomiting Genitourinary: Denies: Dysuria Musculoskeletal: Denies: Joint Pain, Joint Tenderness Skin: Denies: Rash, Wounds Neurological: Denies: Numbness, Tingling, Focal weakness Psychiatric: Denies: Anxiety, Depression, Homicidal Ideations, Suicidal Ideations Hematologic/ Lymphatic: Denies: Easy Bruising, Easy Bleeding VTE Information - Inpt Only VTE Present on Admission: No VTE Mechan Device Prophylaxis: Knee High CRISTINA Hose VTE Pharm Prophylaxis ordered?: Yes Patient Problems: Active and Suspected Problems Debility (Acute) Fecal impaction of colon (Acute) Appetite loss (Acute) - Physical Exam Vitals/I&O's: Vital Signs Pulse BP 63 129/70 H 01/13/20 18:25 01/13/20 18:25 Weight: 63.185 kg Body Mass Index (BMI) 24.6 General: Alert, Oriented x3, Cooperative HEENT: Atraumatic, PERRLA, EOMI, Normocephalic Neck: Supple, No JVD, Negative Carotid Bruits Lungs: Clear to auscultation, Normal air movement Cardiovascular: Regular rate, No murmurs Abdomen: Bowel Sounds Present, Soft, Non Tender Extremities: No edema, Capillary Refill Less than 3 Seconds Skin: No rashes, No breakdown Musculoskeletal: No Tenderness to Palpation of Joints or Extremities Neurological: Cranial nerves II-XII grossly intact Psych/Mental Status: Normal Affect, Appropriate Current Medications Acetaminophen (Tylenol) 1,000 mg PO Q8 [facility] Aspirin (Aspirin, Baby) 81 mg PO BIDCM [facility] Bisacodyl (Dulcolax) 10 mg RECTAL DAILY PRN PRN Reason: constipation Enteral Nutritional Formula (Ensure Surgery) 237 ml PO TIDCM [facility] Last Admin: 01/13/20 18:24 Dose: 237 ml Documented by: Metoprolol Tartrate (Lopressor (Beta Tony)) 12.5 mg PO BID [facility] Last Admin: 01/13/20 18:25 Dose: 12.5 mg Documented by: Oxycodone HCl (Oxyir) 5 mg PO Q6H PRN PRN PRN Reason: Pain Score 6-10/10 Polyethylene Glycol (Miralax) 17 gm PO BID [facility] Last Admin: 01/13/20 18:24 Dose: 17 gm Documented by: Psyllium Hydrophilic Mucilloid (Metamucil) 1 packet PO DAILY PRN PRN PRN Reason: Constipation Senna/Docusate Sodium (Senokot-S, Desirae-Colace) 2 tablet PO BID PRN PRN PRN Reason: Constipation Tuberculin PPD (Tubersol, Aplisol, Ppd) 5 tu ID X1 ONE Stop: 01/14/20 10:01 Tuberculin PPD (Tubersol, Aplisol, Ppd) 5 tu ID X1 ONE Stop: 01/21/20 10:01 Assessment/Plan All Active Problems Displaced dome fracture of right acetabulum (Acute) Preop cardiovascular exam (Acute) Constipation (Acute) Debility (Acute) Fecal impaction of colon (Acute) Appetite loss (Acute) 74 year old male with below past medical history with below past medical history 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 Jacinto, admitted to TCU with debility, here for rehabilitation, strengthening, prior to discharge home with . Debility - PT/OT. Pain - Tylenol 1000MG Q8H, Oxycodone 5MG Q6H PRN pain (6-10). Bowel - Miralax 17GM BID, Senna/colace 2 tablets BID, Dulcolax 10MG [place] daily PRN. Adult immunization - Administer Prevnar 13, Pneumovax 23, Fluzone as appropriate. DVT prophylaxis - Aspirin 81MG twice daily thru 02/10/2020. Coronary Artery Disease - Metoprolol 12.5MG twice daily, Aspirin 81MG daily starting 02/11/2020. Nutrition - Ensure Surgery 237ML PO TID. Appetite loss - I reviewed X-ray abdomen, fecal impaction not noted, Rx Mirtazapine 7.5MG at bedtime to help increase appetite.
[2020-01-13] MEDS: Acetaminophen 500 MG Tablet 1000 MG PO (20:41)
[2020-01-13] MEDS: oxyCODONE 5 MG Tablet PO (20:41)
[2020-01-13] MEDS: Mirtazapine 15 MG Tablet 7.5 MG PO (20:45)
[2020-01-13 23:11] VITALS: BP 125/63; PULSE 83; RESP 19; TEMP 36.3; O2SAT 95
[2020-01-14] MEDS: oxyCODONE 5 MG Tablet PO ×4 (02:35→23:07)
[2020-01-14 02:42] VITALS: BP 142/73; PULSE 76; RESP 15; TEMP 36.8; O2SAT 94
[2020-01-14] MEDS: Polyethylene Glycol 3350 17 GM PACKET PO (05:25)
[2020-01-14] MEDS: Senna/Docusate Sodium 1 Tablet 2 TABLET PO (05:25)
[2020-01-14] MEDS: Acetaminophen 500 MG Tablet 1000 MG PO ×3 (05:25→21:19)
[2020-01-14 05:26] VITALS: BP 142/73; PULSE 76
[2020-01-14] MEDS: Metoprolol Tartrate 25 MG Tablet 12.5 MG PO ×2 (05:26→17:25)
[2020-01-14 05:36] LABS: Absolute Lymphocyte Count 0.73 X10^3/uL (0.83-4.51); Absolute Neutrophil Count 16.3 X10^3/uL (2.0-7.7); Basophil# 0.02 X10^3/uL; Basophil% 0.1 % (0-1); Eosinophil# 0.01 X10^3/uL; Eosinophils% 0.1 % (0-5); Hemoglobin 11.1 g/dL (13.0-16.5); Lymphocyte # 0.73 X10^3/ul (4.0); Mean Corp Hgb Conc 32.6 g/dL (32-36); Mean Corpuscular Hgb 31.5 pg (27.0-32.0); Mean Corpuscular Volume 96.6 fL (80-94); Monocyte# 0.94 X10^3/uL; Monocyte% 5.2 % (0-10); NRBC Flagged by Analyzer 0 % (0-5); Neutrophil # 16.34 X10^3/uL (2.7-7.7); Neutrophil % 89.7 % (47-70); Platelet Count 245 K/mm3 (150-450); RBC Distribution Width CV 13.3 % (11.6-14.6); RBC Distribution Width SD 47.4 fl (35.1-43.9); Red Blood Count 3.52 M/mm3 (4.6-6.2); White Blood Count 18.2 K/mm3 (4.4-11.0)
--- NOTE | 2020-01-14 06:13 | RAD_ITS ---
STUDY: X-RAY CHEST REASON FOR EXAM: Male, 74 years old. ELEVATED WBC TECHNIQUE: PA and lateral views of the chest. COMPARISON: None. FINDINGS: Status post median sternotomy. The lungs are clear and expanded. There is no demonstrated pleural abnormality. Normal size heart. Normal mediastinum and aaron. Normal visualized pulmonary arteries. Normal visualized aortic arch and descending thoracic aorta. Normal visualized thoracic spine. Normal visualized ribs, clavicles, and shoulders. There is no demonstrated abnormality of the visualized soft tissue structures of the upper abdomen. RAD/Chest PA and Lateral IMPRESSION: No active disease. Electronically Signed: Jayce Hahn MD at 10:42 EDT Tel , Service support ,
--- NOTE | 2020-01-14 06:13 | RAD_ITS ---
STUDY: X-RAY - ABDOMEN/PELVIS REASON FOR EXAM: Male, 74 years old. ELEVATED WBC TECHNIQUE: Single AP view of the abdomen / pelvis. COMPARISON: 01/12/2020 FINDINGS: Normal visualized lung bases. Gas in multiple loops of small bowel in a nonspecific bowel gas pattern. The visualized liver, spleen and kidneys are grossly normal in size and morphology. Normal soft tissue structures. Spinal rods in the lumbar spine. Status post right hip arthroplasty. RAD/Abdomen Single View IMPRESSION: Nonspecific bowel gas pattern. Electronically Signed: Jayce Hahn MD at 10:41 EDT Tel , Service support ,
[2020-01-14 06:23] LABS: Anion Gap 8 (5-15); BUN 25 mg/dL (7-18); BUN/Creat Ratio 19.7 RATIO (10-20); Calcium,Total 8.5 mg/dL (8.5-10.1); Chloride 101 mmol/L (98-107); Creatinine, Serum 1.27 mg/dL (0.70-1.30); EST Glomerular Filtration Rate 59 mL/min (>60); Est Glom Filt Rate - Afr Amer 71 mL/min (>60); Estimated Creatinine Clearance 39.83 ml/min; Glucose 107 mg/dL (74-106); Potassium 3.8 mmol/L (3.5-5.1); Sodium Level 133 mmol/L (136-145)
[2020-01-14 07:07] LABS: Bacteria 0 SEEN /hpf (None Seen); Mucous, Urine 0 SEEN /hpf (<or=2+); Red Blood Cells-Urine 0 SEEN /hpf (0-5); Squamous Epithelial Cells - UA 0 SEEN /hpf (0-5); White Blood Cells 0 SEEN /hpf (0-5)
[2020-01-14 07:10] LABS: Color, Urine Yellow (Yellow); Glucose, Dipstick Normal (Normal); Ketone-Dipstick 5 mg/dl (Negative); Leukocyte Esterase-Dipstick Negative /ul (Negative); Nitrite-Dipstick Negative (Negative); Occult Blood-Urine 10 /ul (Negative); Protein-Dipstick 30 mg/dl (Negative); Urine Bilirubin Dipstick Negative (Negative); Urine Clarity Clear (Clear); Urine Urobilinogen Normal (Normal)
[2020-01-14] MEDS: Aspirin 81 MG TAB.CHEW PO ×2 (08:42→17:25)
[2020-01-14] MEDS: Tuberculin,Purif.prot.deriv. 50 TU/ML Vial 5 ML ID (11:34)
--- NOTE | 2020-01-14 14:29 | NURSING ---
SPOKE WITH R' FOR DAILY UPDATE.
[2020-01-14 14:30] VITALS: BP 124/59; PULSE 93; RESP 16; TEMP 36.6; O2SAT 94
[2020-01-14] MEDS: Doxycycline 100 MG CAPSULE PO (17:24)
[2020-01-14 17:25] VITALS: PULSE 93
[2020-01-14] MEDS: Mirtazapine 15 MG Tablet 7.5 MG PO (21:19)
[2020-01-15 05:47] LABS: Absolute Lymphocyte Count 0.98 X10^3/uL (0.83-4.51); Absolute Neutrophil Count 12.2 X10^3/uL (2.0-7.7); Basophil# 0.01 X10^3/uL; Basophil% 0.1 % (0-1); Eosinophil# 0.09 X10^3/uL; Eosinophils% 0.6 % (0-5); Hematocrit 31.1 % (40-54); Hemoglobin 10.2 g/dL (13.0-16.5); Lymphocyte # 0.98 X10^3/ul (4.0); Lymphocyte % 6.8 % (19-41); Mean Corp Hgb Conc 32.8 g/dL (32-36); Mean Corpuscular Hgb 31.9 pg (27.0-32.0); Mean Corpuscular Volume 97.2 fL (80-94); Mean Platelet Vol. 9.9 fl (6.2-12.0); Monocyte# 1.06 X10^3/uL; Monocyte% 7.3 % (0-10); NRBC Flagged by Analyzer 0 % (0-5); Neutrophil # 12.17 X10^3/uL (2.7-7.7); Neutrophil % 84.3 % (47-70); Platelet Count 254 K/mm3 (150-450); RBC Distribution Width CV 13.3 % (11.6-14.6); RBC Distribution Width SD 47.6 fl (35.1-43.9); White Blood Count 14.4 K/mm3 (4.4-11.0)
[2020-01-15 05:48] VITALS: BP 124/76; PULSE 67; RESP 16; TEMP 36.6; O2SAT 97
[2020-01-15 05:49] VITALS: BP 124/76; PULSE 67
[2020-01-15] MEDS: oxyCODONE 5 MG Tablet PO ×2 (05:49→12:15)
[2020-01-15] MEDS: Polyethylene Glycol 3350 17 GM PACKET PO (05:49)
[2020-01-15] MEDS: Doxycycline 100 MG CAPSULE PO ×2 (05:49→17:00)
[2020-01-15] MEDS: Metoprolol Tartrate 25 MG Tablet 12.5 MG PO ×2 (05:49→17:00)
--- NOTE | 2020-01-15 05:53 | NURSING ---
Pt called out requesting pain medications. This nurse into room to give AM meds which included Tylenol. Pt refused Tylenol stating That Tylenol makes me throw up, I only like the strong stuff. Asked pt if he had thrown up last HS since he took it with HS meds. Pt began to change the subject to how he needed his strong pain medication. This nurse asked pt if he had thrown up last HS when he took it. Pt took a tissue and coughed up some fleam and stated that was his throw up. Educated pt that that was not vomit. Pt got a grin on his face and stated I do not want Tylenol give me the strong stuff. Pt rated pain 6/10 to hip. Denied applying ice or repositioning to help with the pain. AM meds given without problem.
[2020-01-15] MEDS: Aspirin 81 MG TAB.CHEW PO ×2 (08:03→17:00)
--- NOTE | 2020-01-15 12:16 | NURSING ---
Resident complains of back pain and pain to Rt leg after therapy. States tylenol made his stomach upset when he took it and taking oxyir Q6hrs is too long a stretch for him. He is requesting to take Cobb Q 4hrs like he takes at home. Dr Nair aware and is ok with starting Cobb as resident takes at home and stopping the oxyir.
--- NOTE | 2020-01-15 14:20 | PHA.CONS_ITS ---
<Marry Brennan - Last Filed: 01/15/20 14:20> Progress Note - Pharmacy Subjective: TCU Admission Objective: Allergies ciprofloxacin [From Cipro] Adverse Reaction (Verified 01/13/20 18:40) Other PANCREATITIS ciprofloxacin HCl [From Cipro] Adverse Reaction (Verified 01/13/20 18:40) Other PANCREATITIS erythromycin base [Erythromycin Base] Adverse Reaction (Verified 01/13/20 18:40) Other LUMPS ON BODY potassium Adverse Reaction (Verified 01/13/20 18:40) Other POTASSIUM LEVELS ARE ELEVATED Current Medications Generic Name Dose Route Start Last Admin Trade Name Freq PRN Reason Stop Dose Admin Hydrocodone Bitart/Acetaminophen 1 tablet 01/15/20 12:18 Gaylord 5mg-325mg PO Q4H PRN PRN Pain Score 1-04/11 Aspirin 81 mg 01/14/20 08:00 01/15/20 08:03 Aspirin, Baby PO 02/10/20 23:59 81 mg BIDCM [facility] Administration Aspirin 81 mg 02/11/20 08:00 Aspirin, Baby PO DAILY@0800 [facility] Bisacodyl 10 mg 01/13/20 17:30 Dulcolax RECTAL DAILY PRN constipation Doxycycline Monohydrate 100 mg 01/14/20 18:00 01/15/20 05:49 Doxycycline PO 01/18/20 23:59 100 mg BID [facility] Administration Metoprolol Tartrate 12.5 mg 01/13/20 18:00 01/15/20 05:49 Lopressor (Beta Tony) PO 12.5 mg BID [facility] Administration Mirtazapine 7.5 mg 01/13/20 22:00 01/14/20 21:19 Remeron PO 7.5 mg QHS [facility] Administration Multi-Ingredient Cream 1 applic 01/14/20 22:00 01/14/20 21:20 Eucerin TOPICAL 1 applicatio HS [facility] Administration Protocol Nutritional Formula (Lactose Free) 120 ml 01/14/20 12:00 01/15/20 11:21 Ensure Enlive PO Not Given 4X/DAY [facility] Polyethylene Glycol 17 gm 01/13/20 18:00 01/15/20 05:49 Miralax PO 17 gm BID [facility] Administration Senna/Docusate Sodium 2 tablet 01/14/20 06:00 01/15/20 05:49 Senokot-S, Desirae-Colace PO Not Given BID [facility] Tuberculin PPD 5 tu 01/21/20 10:00 Tubersol, Aplisol, Ppd ID 01/21/20 10:01 X1 ONE Problem List Debility (Acute) Fecal impaction of colon (Acute) Appetite loss (Acute) Osteoarthritis (Chronic) Vital Signs Temp Pulse Resp BP Pulse Ox 98 F 67 16 124/76 H 97 01/15/20 05:48 01/15/20 05:49 01/15/20 05:48 01/15/20 05:49 01/15/20 05:48 Oxygen Delivery Method Room Air Weight: 63.219 kg Body Mass Index (BMI) 24.6 Sodium 133 mmol/L (136-145) L 01/14/20 05:20 Potassium 3.8 mmol/L (3.5-5.1) 01/14/20 05:20 Chloride 101 mmol/L (98-107) 01/14/20 05:20 Carbon Dioxide 24.0 mmol/L (21.0-32.0) 01/14/20 05:20 Anion Gap 8 (5-15) 01/14/20 05:20 BUN 25 mg/dL (7-18) H 01/14/20 05:20 Creatinine 1.27 mg/dL (0.70-1.30) 01/14/20 05:20 Est GFR (MDRD) Af Amer 71 mL/min (>60) 01/14/20 05:20 Est GFR (MDRD) Non-Af 59 mL/min (>60) L 01/14/20 05:20 BUN/Creatinine Ratio 19.7 RATIO (10-20) 01/14/20 05:20 Glucose 107 mg/dL (74-106) H 01/14/20 05:20 Assessment/Plan: 1. Pain: hydrocodone/acetaminophen 5/325mg PO Q4H PRN pain -04/11. Please continue to monitor for increased pain, PRN usage, constipation, and respiratory depression. 2. DVT prophylaxis: aspirin 81mg PO BIDCM thru 02/10/20. Please continue to monitor for S/S of bleeding/DVT. 3. Post-Op Antibiotic: doxycycline 100mg PO BID thru 01/18/20. Please continue to monitor for S/S of infection and diarrhea. 4. CAD: metoprolol tartrate 12.5mg PO BID and aspirin 81mg PO DAILYCM starting 02/11/20 (after post-op DVT prophylaxis dose is complete). Please continue to monitor BP (last 124/76), HR (last 67), and for S/S of bleeding. Psychotropic Medications: 1. Appetite loss: mirtazapine 7.5mg PO QHS. New medication, GDR not appropriate. Please continue to monitor for improved appetite. Unnecessary Medications: None *Bowel Regimen: Miralax 17gm PO BID, senna/docusate 2T PO BID, and bisacodyl 20mg RI daily PRN constipation. Please consider changing Miralax and senna/docusate to PRN due to diarrhea. Thanks. Date of Note:: 01/15/20 - Provider Comments Provider responsibility: Provider responsible to enter orders to implement recommendations <Jona Nair Chi - Last Filed: 01/15/20 17:44> Progress Note - Pharmacy Subjective: [] Objective: Allergies ciprofloxacin [From Cipro] Adverse Reaction (Verified 01/13/20 18:40) Other PANCREATITIS ciprofloxacin HCl [From Cipro] Adverse Reaction (Verified 01/13/20 18:40) Other PANCREATITIS erythromycin base [Erythromycin Base] Adverse Reaction (Verified 01/13/20 18:40) Other LUMPS ON BODY potassium Adverse Reaction (Verified 01/13/20 18:40) Other POTASSIUM LEVELS ARE ELEVATED Current Medications Generic Name Dose Route Start Last Admin Trade Name Freq PRN Reason Stop Dose Admin Hydrocodone Bitart/Acetaminophen 1 tablet 01/15/20 12:18 01/15/20 16:15 Gaylord 5mg-325mg PO 1 tablet Q4H PRN PRN Administration Pain Score 1-10/10 Aspirin 81 mg 01/14/20 08:00 01/15/20 17:00 Aspirin, Baby PO 02/10/20 23:59 81 mg BIDCM [facility] Administration Aspirin 81 mg 02/11/20 08:00 Aspirin, Baby PO DAILY@0800 [facility] Bisacodyl 10 mg 01/13/20 17:30 Dulcolax RECTAL DAILY PRN constipation Doxycycline Monohydrate 100 mg 01/14/20 18:00 01/15/20 17:00 Doxycycline PO 01/18/20 23:59 100 mg BID [facility] Administration Metoprolol Tartrate 12.5 mg 01/13/20 18:00 01/15/20 17:00 Lopressor (Beta Tony) PO 12.5 mg BID [facility] Administration Mirtazapine 7.5 mg 01/13/20 22:00 01/14/20 21:19 Remeron PO 7.5 mg QHS [facility] Administration Multi-Ingredient Cream 1 applic 01/14/20 22:00 01/14/20 21:20 Eucerin TOPICAL 1 applicatio HS [facility] Administration Protocol Nutritional Formula (Lactose Free) 120 ml 01/14/20 12:00 01/15/20 16:16 Ensure Enlive PO Not Given 4X/DAY [facility] Polyethylene Glycol 17 gm 01/13/20 18:00 01/15/20 16:17 Miralax PO Not Given BID [facility] Senna/Docusate Sodium 2 tablet 01/14/20 06:00 01/15/20 17:03 Senokot-S, Desirae-Colace PO 2 tablet BID [facility] Administration Tuberculin PPD 5 tu 01/21/20 10:00 Tubersol, Aplisol, Ppd ID 01/21/20 10:01 X1 ONE Problem List Debility (Acute) Fecal impaction of colon (Acute) Appetite loss (Acute) Osteoarthritis (Chronic) Vital Signs Temp Pulse Resp BP Pulse Ox 98.0 F 75 17 125/75 H 95 01/15/20 14:40 01/15/20 17:00 01/15/20 14:40 01/15/20 14:40 01/15/20 14:40 Oxygen Delivery Method Room Air Weight: 63.219 kg Body Mass Index (BMI) 24.6 Sodium 133 mmol/L (136-145) L 01/14/20 05:20 Potassium 3.8 mmol/L (3.5-5.1) 01/14/20 05:20 Chloride 101 mmol/L (98-107) 01/14/20 05:20 Carbon Dioxide 24.0 mmol/L (21.0-32.0) 01/14/20 05:20 Anion Gap 8 (5-15) 01/14/20 05:20 BUN 25 mg/dL (7-18) H 01/14/20 05:20 Creatinine 1.27 mg/dL (0.70-1.30) 01/14/20 05:20 Est GFR (MDRD) Af Amer 71 mL/min (>60) 01/14/20 05:20 Est GFR (MDRD) Non-Af 59 mL/min (>60) L 01/14/20 05:20 BUN/Creatinine Ratio 19.7 RATIO (10-20) 01/14/20 05:20 Glucose 107 mg/dL (74-106) H 01/14/20 05:20 Assessment/Plan: Psychotropic Medications: Unnecessary Medications: Bowel Regimen: - Provider Comments Provider responsibility: Provider responsible to enter orders to implement recommendations Provider Comments to Recommendations by Pharmacy: Agree
[2020-01-15 14:40] VITALS: BP 125/75; PULSE 75; RESP 17; TEMP 36.7; O2SAT 95
[2020-01-15] MEDS: HYDROcodone Bitartrate/Apap 5/325 Tablet PO ×2 (16:15→20:20)
[2020-01-15 17:00] VITALS: PULSE 75
[2020-01-15] MEDS: Senna/Docusate Sodium 1 Tablet 2 TABLET PO (17:03)
[2020-01-15] MEDS: Mirtazapine 15 MG Tablet 7.5 MG PO (19:49)
[2020-01-16] MEDS: HYDROcodone Bitartrate/Apap 5/325 Tablet PO ×5 (00:37→21:48)
[2020-01-16 06:04] VITALS: BP 120/59; PULSE 55; RESP 16; TEMP 36.9; O2SAT 95
[2020-01-16 06:15] VITALS: PULSE 55
[2020-01-16] MEDS: Metoprolol Tartrate 25 MG Tablet 12.5 MG PO ×2 (06:15→16:38)
[2020-01-16] MEDS: Doxycycline 100 MG CAPSULE PO ×2 (06:16→16:38)
[2020-01-16] MEDS: Senna/Docusate Sodium 1 Tablet 2 TABLET PO ×2 (06:16→16:35)
[2020-01-16] MEDS: Aspirin 81 MG TAB.CHEW PO ×2 (08:01→16:30)
[2020-01-16 13:35] VITALS: BP 102/67; PULSE 65; RESP 16; TEMP 37; O2SAT 95
--- NOTE | 2020-01-16 15:22 | NURSING ---
Spoke with Dr. Jacinto's office. Received order for dressing to be removed from surgical site, 5 days after surgery date and sutures to be removed 14 days after surgery date.
[2020-01-16] MEDS: Polyethylene Glycol 3350 17 GM PACKET PO (16:30)
[2020-01-16 16:38] VITALS: PULSE 74
[2020-01-16] MEDS: Mirtazapine 15 MG Tablet 7.5 MG PO (20:09)
[2020-01-17] MEDS: HYDROcodone Bitartrate/Apap 5/325 Tablet PO ×5 (03:35→20:35)
[2020-01-17 05:19] VITALS: BP 118/60; PULSE 66; RESP 18; TEMP 36.8; O2SAT 96
[2020-01-17 05:20] VITALS: PULSE 66
[2020-01-17] MEDS: Metoprolol Tartrate 25 MG Tablet 12.5 MG PO ×2 (05:20→17:54)
[2020-01-17] MEDS: Doxycycline 100 MG CAPSULE PO ×2 (05:20→17:53)
[2020-01-17] MEDS: Polyethylene Glycol 3350 17 GM PACKET PO ×2 (05:21→17:53)
[2020-01-17] MEDS: Senna/Docusate Sodium 1 Tablet 2 TABLET PO ×2 (05:22→17:53)
[2020-01-17] MEDS: Aspirin 81 MG TAB.CHEW PO ×2 (08:03→16:38)
[2020-01-17 14:04] VITALS: BP 95/52; PULSE 57; RESP 15; TEMP 36.4; O2SAT 92
[2020-01-17 17:54] VITALS: BP 131/63; PULSE 71
[2020-01-17 18:01] VITALS: BP 131/63; PULSE 71
[2020-01-17] MEDS: Mirtazapine 15 MG Tablet 7.5 MG PO (20:35)
[2020-01-18] MEDS: HYDROcodone Bitartrate/Apap 5/325 Tablet PO ×6 (00:37→23:34)
[2020-01-18 04:39] VITALS: BP 126/56; PULSE 54; RESP 16; TEMP 36.7
[2020-01-18 04:40] VITALS: BP 126/56; PULSE 54
[2020-01-18] MEDS: Metoprolol Tartrate 25 MG Tablet 12.5 MG PO ×2 (04:40→17:54)
[2020-01-18] MEDS: Doxycycline 100 MG CAPSULE PO ×2 (04:41→17:54)
[2020-01-18] MEDS: Aspirin 81 MG TAB.CHEW PO ×2 (08:12→17:56)
[2020-01-18 14:39] VITALS: BP 126/58; PULSE 68; RESP 18; TEMP 36.3; O2SAT 95
[2020-01-18 17:54] VITALS: BP 126/56; PULSE 83
[2020-01-18] MEDS: Mirtazapine 15 MG Tablet 7.5 MG PO (19:48)
[2020-01-19 04:00] VITALS: BP 112/64; PULSE 61; RESP 15; TEMP 36.9
[2020-01-19] MEDS: HYDROcodone Bitartrate/Apap 5/325 Tablet PO ×5 (04:07→21:41)
[2020-01-19 04:08] VITALS: BP 112/64; PULSE 60
[2020-01-19] MEDS: Metoprolol Tartrate 25 MG Tablet 12.5 MG PO ×2 (04:08→17:30)
[2020-01-19] MEDS: Aspirin 81 MG TAB.CHEW PO ×2 (08:17→17:30)
--- NOTE | 2020-01-19 14:05 | NURSING ---
CALLED AND GAVE DAILY UPDATE.
[2020-01-19 14:39] VITALS: BP 102/57; PULSE 61; RESP 14; TEMP 36.2; O2SAT 93
--- NOTE | 2020-01-19 14:43 | NURSING ---
ANDREINA AMIN RN NOTIFIED DR. DELUNA OF INCREASED EDEMA TO BLE'S. N.O. LASIX, WITH FIRST DOSE OF LASIX NOW AND POTASSIUM X7 DAYS. DOPPLER IN AM. BMP MONDAY. R' UPDATED.
[2020-01-19] MEDS: Furosemide 40 MG Tablet PO (14:45)
[2020-01-19 17:30] VITALS: PULSE 61
[2020-01-19] MEDS: Mirtazapine 15 MG Tablet 7.5 MG PO (21:42)
--- NOTE | 2020-01-19 22:42 | PCA ---
SCRAP PILER offered to help patient get into the shower tonight as it was their scheduled night for a shower. Patient stated I would rather wait until in the morning to get cleaned up SCRAP PILER offered to at least wash face and brush teeth, but patient refused.
[2020-01-20] MEDS: HYDROcodone Bitartrate/Apap 5/325 Tablet PO ×5 (01:36→21:51)
[2020-01-20 05:30] VITALS: BP 123/46; PULSE 51; RESP 16; TEMP 36.4; O2SAT 94
[2020-01-20 05:37] VITALS: PULSE 51
[2020-01-20] MEDS: Senna/Docusate Sodium 1 Tablet 2 TABLET PO ×2 (05:37→17:05)
[2020-01-20] MEDS: Furosemide 40 MG Tablet PO (05:37)
--- NOTE | 2020-01-20 08:00 | VDLE_ITS ---
Reason For Study: Swelling RIGHT LEFT GSV is normal. GSV previously harvested. CFV is compressible, spontaneous, phasic, CFV is compressible, spontaneous, phasic, competent and demonstrates normal competent, and demonstrates normal augmentation. augmentation. FV is compressible, spontaneous, phasic, FV is compressible, spontaneous, phasic, competent and demonstrates normal competent and demonstrates normal augmentation. augmentation. POP V is compressible, spontaneous, phasic, POP V is compressible, spontaneous, phasic, competent and demonstrates normal competent and demonstrates normal augmentation. augmentation. T/P Trunk is compressible. T/P Trunk is compressible. PTV is compressible. PTV is compressible. RT PerV is compressible. LT PerV is compressible. Procedure Exam performed portable in patient room. A preliminary report was called and/or faxed to TCU RN. Interpretation Summary No evidence for acute deep venous thrombosis bilateral lower extremities Patent and compressible right great saphenous vein Surgically harvested left great saphenous vein Ordering Physician: Jona Nair Referring Physician: Bladimir Bazan Performed By: Hattie Abrams RVT
[2020-01-20] MEDS: Aspirin 81 MG TAB.CHEW PO ×2 (08:14→17:06)
[2020-01-20 15:41] VITALS: BP 108/56; PULSE 94; RESP 16; TEMP 36.5; O2SAT 94
[2020-01-20 17:04] VITALS: BP 108/56; PULSE 94
[2020-01-20] MEDS: Metoprolol Tartrate 25 MG Tablet 12.5 MG PO (17:04)
[2020-01-20] MEDS: Mirtazapine 15 MG Tablet 7.5 MG PO (21:50)
[2020-01-21] MEDS: HYDROcodone Bitartrate/Apap 5/325 Tablet PO ×5 (01:55→20:37)
[2020-01-21 01:57] VITALS: BP 90/50; PULSE 64; RESP 16; TEMP 36.9; O2SAT 93
[2020-01-21 05:37] LABS: Absolute Lymphocyte Count 1.65 X10^3/uL (0.83-4.51); Absolute Neutrophil Count 8.4 X10^3/uL (2.0-7.7); Basophil# 0.04 X10^3/uL; Basophil% 0.3 % (0-1); Eosinophil# 0.45 X10^3/uL; Eosinophils% 3.9 % (0-5); Hematocrit 30.7 % (40-54); Hemoglobin 9.9 g/dL (13.0-16.5); Lymphocyte # 1.65 X10^3/ul (4.0); Lymphocyte % 14.3 % (19-41); Mean Corp Hgb Conc 32.2 g/dL (32-36); Mean Corpuscular Hgb 31.6 pg (27.0-32.0); Mean Corpuscular Volume 98.1 fL (80-94); Monocyte# 0.85 X10^3/uL; Monocyte% 7.4 % (0-10); NRBC Flagged by Analyzer 0 % (0-5); Neutrophil # 8.42 X10^3/uL (2.7-7.7); Neutrophil % 72.8 % (47-70); Platelet Count 392 K/mm3 (150-450); RBC Distribution Width CV 13.2 % (11.6-14.6); RBC Distribution Width SD 47.2 fl (35.1-43.9); Red Blood Count 3.13 M/mm3 (4.6-6.2); White Blood Count 11.6 K/mm3 (4.4-11.0)
[2020-01-21 06:00] LABS: Anion Gap 6 (5-15); BUN 26 mg/dL (7-18); BUN/Creat Ratio 18.4 RATIO (10-20); Calcium,Total 8.6 mg/dL (8.5-10.1); Chloride 102 mmol/L (98-107); Creatinine, Serum 1.41 mg/dL (0.70-1.30); EST Glomerular Filtration Rate 52 mL/min (>60); Est Glom Filt Rate - Afr Amer 63 mL/min (>60); Estimated Creatinine Clearance 35.87 ml/min; Glucose 113 mg/dL (74-106); Potassium 4.2 mmol/L (3.5-5.1); Sodium Level 134 mmol/L (136-145)
[2020-01-21 06:16] VITALS: BP 108/46; PULSE 61
[2020-01-21] MEDS: Metoprolol Tartrate 25 MG Tablet 12.5 MG PO ×2 (06:16→16:57)
[2020-01-21] MEDS: Furosemide 40 MG Tablet PO (06:17)
[2020-01-21] MEDS: Aspirin 81 MG TAB.CHEW PO ×2 (08:56→16:57)
[2020-01-21] MEDS: Tuberculin,Purif.prot.deriv. 50 TU/ML Vial 5 ML ID (10:27)
[2020-01-21 14:31] VITALS: BP 110/62; PULSE 68; RESP 14; TEMP 36.7; O2SAT 94
[2020-01-21 16:57] VITALS: BP 110/62; PULSE 68
[2020-01-21] MEDS: Mirtazapine 15 MG Tablet 7.5 MG PO (20:37)
[2020-01-22] MEDS: HYDROcodone Bitartrate/Apap 5/325 Tablet PO ×5 (01:08→22:08)
[2020-01-22 05:24] VITALS: BP 121/56; PULSE 55; RESP 18; TEMP 36.7; O2SAT 97
[2020-01-22 05:29] VITALS: BP 121/56; PULSE 55
[2020-01-22] MEDS: Furosemide 20 MG Tablet PO (05:29)
[2020-01-22] MEDS: Metoprolol Tartrate 25 MG Tablet 12.5 MG PO ×2 (05:29→17:41)
[2020-01-22] MEDS: Senna/Docusate Sodium 1 Tablet 2 TABLET PO ×2 (05:32→17:42)
[2020-01-22] MEDS: Aspirin 81 MG TAB.CHEW PO ×2 (07:45→17:41)
--- NOTE | 2020-01-22 10:26 | PCA ---
aide set aide up for AM care with wash basin and clean clothes, pt performed all AM care duties on own while in the bathroom along with dressing himself with clothing that was set out for him
--- NOTE | 2020-01-22 11:28 | CASEMGMT ---
Social Work IDT met with patient and via conference call for care plan meeting. Discussed patient's progress in therapy. Pt is ambulating 50 ft with FWW at CGA while maintaining TTWB. Pt is SBA for bed mobility, set upf ro UE ADLS, Elan for LE ADLS, CGA for toileting and tasks. Pt is on a regular diet, soft texture, fortified foods, magic cup and stopped Ensure as appetite has improved. Pt has f/u appt 01/23 and in room isolation will start at that time. Sutures have been removed. Explained Medicare benefit. Pt does not have secondary insurance so is 8/2, and the goal is for pt to DC home by then. Will follow if WBS increases. Pt will return home with his with 3 steps to enter. Will continue to follow. JANNET ColeW
[2020-01-22 15:26] VITALS: BP 112/56; PULSE 61; RESP 18; TEMP 36.8; O2SAT 94
[2020-01-22 17:41] VITALS: BP 112/56; PULSE 61
[2020-01-22] MEDS: Mirtazapine 15 MG Tablet 7.5 MG PO (22:09)
[2020-01-23] MEDS: HYDROcodone Bitartrate/Apap 5/325 Tablet PO ×5 (02:28→21:33)
[2020-01-23 06:13] LABS: Anion Gap 3 (5-15); BUN 25 mg/dL (7-18); BUN/Creat Ratio 17.1 RATIO (10-20); Calcium,Total 9.2 mg/dL (8.5-10.1); Chloride 101 mmol/L (98-107); Creatinine, Serum 1.46 mg/dL (0.70-1.30); EST Glomerular Filtration Rate 50 mL/min (>60); Est Glom Filt Rate - Afr Amer 60 mL/min (>60); Estimated Creatinine Clearance 34.64 ml/min; Glucose 96 mg/dL (74-106); Potassium 4.7 mmol/L (3.5-5.1); Sodium Level 132 mmol/L (136-145)
[2020-01-23 06:43] VITALS: BP 110/66; PULSE 61; RESP 16; TEMP 36.3; O2SAT 93
[2020-01-23 06:46] VITALS: BP 110/66; PULSE 61
[2020-01-23] MEDS: Furosemide 20 MG Tablet PO (06:46)
[2020-01-23] MEDS: Metoprolol Tartrate 25 MG Tablet 12.5 MG PO ×2 (06:46→17:16)
[2020-01-23] MEDS: Senna/Docusate Sodium 1 Tablet 2 TABLET PO ×2 (08:09→17:16)
[2020-01-23] MEDS: Aspirin 81 MG TAB.CHEW PO ×2 (08:11→16:00)
[2020-01-23 11:03] VITALS: PULSE 60; RESP 18; O2SAT 90
[2020-01-23 14:45] VITALS: BP 104/52; PULSE 60; RESP 18; TEMP 36.7; O2SAT 90
[2020-01-23 17:16] VITALS: BP 104/52; PULSE 60
[2020-01-23] MEDS: Mirtazapine 15 MG Tablet 7.5 MG PO (21:33)
[2020-01-24] MEDS: HYDROcodone Bitartrate/Apap 5/325 Tablet PO ×6 (01:39→22:00)
[2020-01-24] MEDS: Senna/Docusate Sodium 1 Tablet 2 TABLET PO ×2 (05:20→17:24)
[2020-01-24] MEDS: Furosemide 20 MG Tablet PO (05:20)
[2020-01-24 05:21] VITALS: BP 125/62; PULSE 53
[2020-01-24] MEDS: Metoprolol Tartrate 25 MG Tablet 12.5 MG PO ×2 (05:21→17:24)
[2020-01-24 05:27] VITALS: BP 125/62; PULSE 53; RESP 16; TEMP 36.6; O2SAT 95
[2020-01-24] MEDS: Aspirin 81 MG TAB.CHEW PO ×2 (07:53→17:24)
--- NOTE | 2020-01-24 12:35 | NURSING ---
pt returned from ortho appt, new orders received. cont norco for pain control. DVT prophylaxis=aspirin 81mg BID x4 wks post op, TTWB x 6 wks post op. f/u 4 wks with roman w/repeat xrays. updated therapy
[2020-01-24 14:05] VITALS: BP 93/58; PULSE 79; RESP 14; TEMP 36.3; O2SAT 96
[2020-01-24 17:24] VITALS: BP 113/58; PULSE 79
[2020-01-24] MEDS: Mirtazapine 15 MG Tablet 7.5 MG PO (20:40)
[2020-01-25 06:01] VITALS: BP 112/58; PULSE 57; RESP 16; TEMP 36.4; O2SAT 94
[2020-01-25] MEDS: HYDROcodone Bitartrate/Apap 5/325 Tablet PO ×4 (06:06→20:04)
[2020-01-25 06:07] VITALS: PULSE 57
[2020-01-25] MEDS: Furosemide 20 MG Tablet PO (06:07)
[2020-01-25] MEDS: Senna/Docusate Sodium 1 Tablet 2 TABLET PO ×2 (06:07→17:06)
[2020-01-25] MEDS: Metoprolol Tartrate 25 MG Tablet 12.5 MG PO ×2 (06:07→17:04)
[2020-01-25] MEDS: Aspirin 81 MG TAB.CHEW PO ×2 (08:02→15:43)
--- NOTE | 2020-01-25 11:32 | NURSING ---
Received order from Dr. Nair to stop pt's lasix order. Order repeated.
[2020-01-25 15:34] VITALS: BP 122/64; PULSE 68; RESP 18; TEMP 36.6; O2SAT 90
[2020-01-25 17:04] VITALS: BP 122/64; PULSE 68
[2020-01-25] MEDS: Mirtazapine 15 MG Tablet 7.5 MG PO (20:04)
[2020-01-26] MEDS: HYDROcodone Bitartrate/Apap 5/325 Tablet PO ×5 (01:00→20:00)
[2020-01-26 05:29] VITALS: BP 124/57; PULSE 53; RESP 16; TEMP 36.7; O2SAT 97
[2020-01-26 05:31] VITALS: BP 124/57; PULSE 53
[2020-01-26] MEDS: Metoprolol Tartrate 25 MG Tablet 12.5 MG PO ×2 (05:31→17:15)
[2020-01-26] MEDS: Senna/Docusate Sodium 1 Tablet 2 TABLET PO ×2 (05:33→17:14)
[2020-01-26] MEDS: Aspirin 81 MG TAB.CHEW PO ×2 (07:42→17:15)
[2020-01-26 10:59] VITALS: PULSE 60; RESP 18; O2SAT 95
[2020-01-26 14:13] VITALS: BP 108/60; PULSE 60; RESP 16; TEMP 36.7; O2SAT 95
[2020-01-26 17:15] VITALS: BP 108/60; PULSE 60
[2020-01-26] MEDS: Mirtazapine 15 MG Tablet 7.5 MG PO (20:01)
[2020-01-27 04:00] VITALS: BP 127/70; PULSE 57; RESP 16; TEMP 36.1; O2SAT 97
[2020-01-27 04:42] VITALS: BP 127/70; PULSE 57
[2020-01-27] MEDS: Metoprolol Tartrate 25 MG Tablet 12.5 MG PO ×2 (04:42→17:06)
[2020-01-27] MEDS: HYDROcodone Bitartrate/Apap 5/325 Tablet PO ×5 (04:43→17:51)
[2020-01-27] MEDS: Senna/Docusate Sodium 1 Tablet 2 TABLET PO (04:46)
[2020-01-27] MEDS: Aspirin 81 MG TAB.CHEW PO ×2 (08:04→17:05)
[2020-01-27 14:26] VITALS: BP 102/61; PULSE 74; RESP 16; TEMP 37.2; O2SAT 94
[2020-01-27 17:06] VITALS: PULSE 74
[2020-01-27 17:18] VITALS: BP 124/68; PULSE 68; TEMP 36.8
--- NOTE | 2020-01-27 18:01 | NURSING ---
DR. DELUNA AWARE OF UA RESULTS. NO N.O.
[2020-01-27] MEDS: Mirtazapine 15 MG Tablet 7.5 MG PO (19:53)
[2020-01-28] MEDS: HYDROcodone Bitartrate/Apap 5/325 Tablet PO ×6 (00:24→23:57)
[2020-01-28 04:08] VITALS: BP 116/62; PULSE 54; RESP 18; TEMP 36.4; O2SAT 97
[2020-01-28 04:16] VITALS: PULSE 54
[2020-01-28] MEDS: Senna/Docusate Sodium 1 Tablet 2 TABLET PO (04:16)
[2020-01-28] MEDS: Metoprolol Tartrate 25 MG Tablet 12.5 MG PO ×2 (04:16→17:01)
[2020-01-28 05:41] LABS: Absolute Lymphocyte Count 1.45 X10^3/uL (0.83-4.51); Absolute Neutrophil Count 6.3 X10^3/uL (2.0-7.7); Basophil# 0.06 X10^3/uL; Basophil% 0.7 % (0-1); Eosinophil# 0.48 X10^3/uL; Eosinophils% 5.3 % (0-5); Hematocrit 32.9 % (40-54); Hemoglobin 10.4 g/dL (13.0-16.5); Lymphocyte # 1.45 X10^3/ul (4.0); Lymphocyte % 15.9 % (19-41); Mean Corp Hgb Conc 31.6 g/dL (32-36); Mean Corpuscular Hgb 31.5 pg (27.0-32.0); Mean Corpuscular Volume 99.7 fL (80-94); Mean Platelet Vol. 8.8 fl (6.2-12.0); Monocyte# 0.76 X10^3/uL; Monocyte% 8.3 % (0-10); NRBC Flagged by Analyzer 0 % (0-5); Platelet Count 353 K/mm3 (150-450); RBC Distribution Width SD 46.5 fl (35.1-43.9); White Blood Count 9.1 K/mm3 (4.4-11.0)
[2020-01-28 06:10] LABS: Anion Gap 3 (5-15); BUN 24 mg/dL (7-18); BUN/Creat Ratio 17.6 RATIO (10-20); Calcium,Total 8.9 mg/dL (8.5-10.1); Chloride 105 mmol/L (98-107); Creatinine, Serum 1.36 mg/dL (0.70-1.30); EST Glomerular Filtration Rate 54 mL/min (>60); Est Glom Filt Rate - Afr Amer 66 mL/min (>60); Estimated Creatinine Clearance 37.19 ml/min; Glucose 95 mg/dL (74-106); Potassium 5.1 mmol/L (3.5-5.1); Sodium Level 135 mmol/L (136-145)
[2020-01-28] MEDS: Aspirin 81 MG TAB.CHEW PO ×2 (08:40→17:01)
--- NOTE | 2020-01-28 12:36 | DCINST_ITS ---
- Discharge Diagnoses Current Active Problems: Current Active and Chronic Problems Debility (Acute) Fecal impaction of colon (Acute) Appetite loss (Acute) Osteoarthritis (Chronic) You will use the following diet at home:: No restrictions, Regular Your food should be the consistency of: Regular Your liquids should be the consistency of: Regular/Thin Discharge Activity: May Shower, Use Walker Weight Bearing Status: Toe touch weight bearing Keep extremity elevated above heart level: Right Leg Call your doctor if you observe: Fever of 101 or Higher, Inability to urinate, Inability to have a bowel movement, Shortness of breath, Chest pain, Uncontrolled pain Allergies/Adverse Reactions: Allergies ciprofloxacin [From Cipro] Adverse Reaction (Verified 01/13/20 18:40) Other PANCREATITIS ciprofloxacin HCl [From Cipro] Adverse Reaction (Verified 01/13/20 18:40) Other PANCREATITIS erythromycin base [Erythromycin Base] Adverse Reaction (Verified 01/13/20 18:40) Other LUMPS ON BODY potassium Adverse Reaction (Verified 01/13/20 18:40) Other POTASSIUM LEVELS ARE ELEVATED Medications to take at Discharge Acetaminophen [Tylenol] 1,000 mg PO Q8 tab 01/13/20 Aspirin [Aspirin, Baby] 81 mg PO DAILY #0 01/13/20 Metoprolol Tartrate [Lopressor (beta felicia)] 12.5 mg PO BID tab 01/13/20 Psyllium [Metamucil] 1 packet PO DAILY PRN PRN packet 01/13/20 Aspirin [Aspirin, Baby] 81 mg PO DAILY@0800 tab.chew 01/28/20 Mineral Oil/Petrolatum,White [Eucerin] 1 applic TOPICAL HS jar 01/28/20 Mirtazapine [Remeron] 7.5 mg PO QHS #30 tab 01/28/20 The following prescriptions were given: Mirtazapine [Remeron] 7.5 mg PO QHS #30 tab Transmission Status: Pending to [facility]/pharmacy #[id number] Primary Care Physician: Bladimir Bazan DO [Primary Care Provider] - Please follow up with your Primary Care Physician in: 1 week. Test Results: Test results from this visit will be discussed in further detail at your follow- up appointment, if applicable. Please Follow Up With: DR BIANCHI When: 2 weeks. Proposed Discharge Date: 02/01/20
--- NOTE | 2020-01-28 12:37 | DS.PCM_ITS ---
Discharge Date and Diagnosis - Problem List Patient Problems: Active and Suspected Problems Debility (Acute) Fecal impaction of colon (Acute) Appetite loss (Acute) Date of Admission: 01/13/20 Date of Discharge: 02/01/20 - Primary Discharge Diagnosis Acute Problems: Active Problems Debility (Acute) Fecal impaction of colon (Acute) Appetite loss (Acute) - Secondary Discharge Diagnosis Chronic Problems: Chronic Problems CAD (coronary artery disease) (Chronic) Arthritis (Chronic) Hypertension (Chronic) Prostate cancer (Chronic) Osteoarthritis (Chronic) Hospital Course and Treatment Imaging Results: 01/13/20 17:15 Diet: Regular Diet Food consistency:: Soft Diet Comments: fortified foods; magic cup at dinner Clinical Impression(s) from Imaging Studies Chest X-Ray 01/14/20 06:13 IMPRESSION: No active disease. Electronically Signed: Jayce Hahn MD at 10:42 EDT Tel , Service support , KUB X-Ray 01/14/20 06:13 IMPRESSION: Nonspecific bowel gas pattern. Electronically Signed: Jayce Hahn MD at 10:41 EDT Tel , Service support , Labs (Last 48 Hours) 01/28/20 01/28/20 05:20 05:20 WBC 9.1 RBC 3.30 L Hgb 10.4 L Hct 32.9 L MCV 99.7 H MCH 31.5 MCHC 31.6 L RDW Std Deviation 46.5 H RDW Coeff of Eric 13.0 Plt Count 353 MPV 8.8 Immature Gran % (Auto) 0.800 Neut % (Auto) 69.0 Lymph % (Auto) 15.9 L [place] % (Auto) 8.3 Eos % (Auto) 5.3 H Baso % (Auto) 0.7 Absolute Neuts (auto) 6.3 Absolute Lymphs (auto) 1.45 Nucleated RBC % 0 Sodium 135 L Potassium 5.1 Chloride 105 Carbon Dioxide 27.0 Anion Gap 3 L BUN 24 H Creatinine 1.36 H Estim Creat Clear Calc 37.19 Est GFR (MDRD) Af Amer 66 Est GFR (MDRD) Non-Af 54 L BUN/Creatinine Ratio 17.6 Glucose 95 Calcium 8.9 Operations: None, - - 01/09 right total hip revision Procedures: None Summary of Care Provided: The patient is a 74 year old Male with below past medical history with below past medical history 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 Jacinto, admitted to TCU with debility, here for rehabilitation, strengthening, prior to discharge home with . Discharge home with , Home Health Care for PT/OT. Patient Problems: Active and Suspected Problems Debility (Acute) Fecal impaction of colon (Acute) Appetite loss (Acute) - Physical Exam Vitals/I&O's: Vital Signs Temp Pulse Resp BP Pulse Ox 97.6 F L 54 L 18 116/62 97 01/28/20 04:08 01/28/20 04:16 01/28/20 04:08 01/28/20 04:08 01/28/20 04:08 Oxygen Delivery Method Room Air Weight: 62.794 kg Body Mass Index (BMI) 24.6 Intake and Output for Last 24 Hours 01/26/20 01/27/20 01/28/20 23:59 23:59 23:59 Intake Total 1120 / 1120 600 / 600 240 / 240 Output Total 100 / 100 Balance 1120 / 1120 500 / 500 240 / 240 Laboratory Results 01/28/20 05:20: WBC 9.1, RBC 3.30 L, Hgb 10.4 L, Hct 32.9 L, MCV 99.7 H, MCH 31.5, MCHC 31.6 L, RDW Std Deviation 46.5 H, RDW Coeff of Eric 13.0, Plt Count 353, MPV 8.8, Immature Gran % (Auto) 0.800, Neut % (Auto) 69.0, Lymph % (Auto) 15.9 L, Reagan % (Auto) 8.3, Eos % (Auto) 5.3 H, Baso % (Auto) 0.7, Absolute Neuts (auto) 6.3, Absolute Lymphs (auto) 1.45, Nucleated RBC % 0 01/28/20 05:20: Sodium 135 L, Potassium 5.1, Chloride 105, Carbon Dioxide 27.0, Anion Gap 3 L, BUN 24 H, Creatinine 1.36 H, Estim Creat Clear Calc 37.19, Est GFR (MDRD) Af Amer 66, Est GFR (MDRD) Non-Af 54 L, BUN/Creatinine Ratio 17.6, Glucose 95, Calcium 8.9 Current Medications Hydrocodone Bitart/Acetaminophen ([place] 5mg-325mg) 1 tablet PO Q4H PRN PRN PRN Reason: Pain Score 1-04/11 Last Admin: 01/28/20 08:40 Dose: 1 tablet Documented by: [facility], [facility]) [facility] Stop: 02/10/20 23:59 Last Admin: 01/28/20 08:40 Dose: 81 mg Documented by: Aspirin (Aspirin, Baby) 81 mg PO DAILY@0800 [facility] Bisacodyl (Dulcolax) 10 mg RECTAL DAILY PRN PRN Reason: constipation Metoprolol Tartrate (Lopressor (Beta Tony)) 12.5 mg PO BID [facility] Last Admin: 01/28/20 04:16 Dose: 12.5 mg Documented by: Mirtazapine (Remeron) 7.5 mg PO QHS [facility] Last Admin: 01/27/20 19:53 Dose: 7.5 mg Documented by: Multi-Ingredient Cream (Eucerin) 1 applic TOPICAL [facility]; Protocol Last Admin: 01/27/20 19:54 Dose: 1 applicatio Documented by: Polyethylene Glycol (Miralax) 17 gm PO BID [facility] Last Admin: 01/28/20 04:17 Dose: Not Given Documented by: Senna/Docusate Sodium (Senokot-S, Desirae-Colace) 2 tablet PO BID [facility] Last Admin: 01/28/20 11:33 Dose: Not Given Documented by: Discharge Diet: No Restrictions Discharge Activity: Return to Normal Activity, May Shower, Use Walker Weight Bearing Status: Toe touch weight bearing Keep extremity elevated above heart level: Right Leg Call your doctor if you observe: Fever of 101 or Higher, Inability to urinate, Inability to have a bowel movement, Shortness of breath, Chest pain, Uncontrolled pain Home Medications: Medications to take at Discharge Acetaminophen [Tylenol] 1,000 mg PO Q8 tab 01/13/20 Aspirin [Aspirin, Baby] 81 mg PO DAILY #0 01/13/20 Metoprolol Tartrate [Lopressor (beta tony)] 12.5 mg PO BID tab 01/13/20 Psyllium [Metamucil] 1 packet PO DAILY PRN PRN packet 01/13/20 Aspirin [Aspirin, Baby] 81 mg PO DAILY@0800 tab.chew 01/28/20 Mineral Oil/Petrolatum,White [Eucerin] 1 applic TOPICAL HS jar 01/28/20 Mirtazapine [Remeron] 7.5 mg PO QHS #30 tab 01/28/20 Following Prescrptions Were Given to Patient: Mirtazapine [Remeron] 7.5 mg PO QHS #30 tab Transmission Status: Pending to [id number] Primary Care Physician: Bladimir Bazan DO [Primary Care Provider] - Please follow up with your Primary Care Physician in: 1 week. Please Follow Up With: DR JACINTO When: 2 weeks. Disposition: Home with Home Health Minutes spent on discharge:: 35 Patient Condition:: Stable Medical Necessity - Tobacco Use Smoking Status: Former smoker Tobacco Use: Non-smoker Meaningful Use Info Meaningful Use Diagnoses (Choose all that apply): None applicable
--- NOTE | 2020-01-28 13:30 | CASEMGMT ---
Social Work Spoke with pt about DC plans. Pt and agreeable to DC 01/31. Requesting [facility]. Referral made for PT/OT. No DME needs. Plan: DC home with 01/31, [facility] PT/OT. Zee Durand, JANNET SULTANAW
[2020-01-28 14:07] VITALS: BP 114/72; PULSE 64; RESP 18; TEMP 36.6; O2SAT 98
[2020-01-28 17:01] VITALS: PULSE 84
[2020-01-28] MEDS: Mirtazapine 15 MG Tablet 7.5 MG PO (19:50)
[2020-01-29 05:46] VITALS: BP 132/59; PULSE 56; RESP 16; TEMP 36.4; O2SAT 96
[2020-01-29 05:48] VITALS: PULSE 56
[2020-01-29] MEDS: Metoprolol Tartrate 25 MG Tablet 12.5 MG PO ×2 (05:48→17:00)
[2020-01-29] MEDS: HYDROcodone Bitartrate/Apap 5/325 Tablet PO ×4 (05:49→22:11)
[2020-01-29] MEDS: Senna/Docusate Sodium 1 Tablet 2 TABLET PO ×2 (05:49→17:01)
[2020-01-29] MEDS: Aspirin 81 MG TAB.CHEW PO ×2 (08:01→16:59)
[2020-01-29 13:57] VITALS: BP 105/56; PULSE 70; RESP 14; TEMP 36.4; O2SAT 93
[2020-01-29 17:00] VITALS: PULSE 68
[2020-01-29] MEDS: Mirtazapine 15 MG Tablet 7.5 MG PO (21:20)
[2020-01-30 04:13] VITALS: BP 144/75; PULSE 58; RESP 16; TEMP 36.6; O2SAT 98
[2020-01-30] MEDS: HYDROcodone Bitartrate/Apap 5/325 Tablet PO ×4 (04:15→20:40)
[2020-01-30] MEDS: Senna/Docusate Sodium 1 Tablet 2 TABLET PO ×2 (04:15→16:09)
[2020-01-30 04:16] VITALS: BP 144/75; PULSE 58
[2020-01-30] MEDS: Metoprolol Tartrate 25 MG Tablet 12.5 MG PO ×2 (04:16→16:09)
[2020-01-30] MEDS: Aspirin 81 MG TAB.CHEW PO ×2 (08:32→16:09)
[2020-01-30 14:08] VITALS: BP 124/64; PULSE 60; RESP 16; TEMP 36.6; O2SAT 97
[2020-01-30 16:09] VITALS: BP 124/69; PULSE 60
[2020-01-30] MEDS: Mirtazapine 15 MG Tablet 7.5 MG PO (20:41)
[2020-01-31] MEDS: HYDROcodone Bitartrate/Apap 5/325 Tablet PO ×5 (02:35→21:49)
[2020-01-31 06:32] VITALS: BP 133/66; PULSE 59; RESP 16; TEMP 36.8; O2SAT 98
[2020-01-31 06:39] VITALS: BP 133/66; PULSE 59
[2020-01-31] MEDS: Metoprolol Tartrate 25 MG Tablet 12.5 MG PO ×2 (06:39→17:44)
[2020-01-31] MEDS: Senna/Docusate Sodium 1 Tablet 2 TABLET PO ×2 (06:39→17:46)
[2020-01-31] MEDS: Aspirin 81 MG TAB.CHEW PO ×2 (07:46→15:56)
--- NOTE | 2020-01-31 09:26 | CASEMGMT ---
Social Work BIMS and PHQ-9 completed for MDS assessment. Zee Durand, ENGINEERING TECHNICAL ANALYST MYCOLOGY TEACHER
--- NOTE | 2020-01-31 12:03 | MDS.RN ---
Pain interview for jenna 02/01/20 completed.
[2020-01-31 13:29] VITALS: BP 116/58; PULSE 54; RESP 18; TEMP 36.3; O2SAT 95
[2020-01-31 17:44] VITALS: BP 122/58; PULSE 72
[2020-01-31] MEDS: Mirtazapine 15 MG Tablet 7.5 MG PO (21:51)
[2020-02-01] MEDS: HYDROcodone Bitartrate/Apap 5/325 Tablet PO ×2 (03:43→09:54)
[2020-02-01 04:00] VITALS: BP 110/56; PULSE 80; RESP 16; TEMP 36.6; O2SAT 97
[2020-02-01 05:26] VITALS: BP 132/60; PULSE 59
[2020-02-01] MEDS: Metoprolol Tartrate 25 MG Tablet 12.5 MG PO (05:26)
[2020-02-01] MEDS: Senna/Docusate Sodium 1 Tablet 2 TABLET PO (05:26)
[2020-02-01] MEDS: Aspirin 81 MG TAB.CHEW PO (08:10)
[2020-02-01 08:45] VITALS: PULSE 60; RESP 16; O2SAT 95
[2020-02-01 10:04] VITALS: BP 112/68; PULSE 68; RESP 16; TEMP 36.3; O2SAT 95
== END 2020-02-01 10:30 | disposition home health service (06) | DRG 561 ==
PROVIDERS: Admitting Provider Family Medicine Geriatric Medicine; PCP Preventive Medicine Occupational Medicine; Visit Provider Family Medicine Geriatric Medicine
DX: Z47.1 Aftercare following joint replacement surgery (principal); Z96.641 Presence of right artificial hip joint; Z23 Encounter for immunization; I25.10 Atherosclerotic heart disease of native coronary artery without angina pectoris; M19.90 Unspecified osteoarthritis, unspecified site; I10 Essential (primary) hypertension; C61 Malignant neoplasm of prostate; Z87.891 Personal history of nicotine dependence
CPT/HCPCS: 36415; 71046; 74018; 80048; 81001; 85025; 87086; 87635; 93970; 97110; 97116; 97162; 97166; 97530; 97535; 97802; G0009; G2023; 90670; U0003

== ENCOUNTER → 2020-02-27 15:10 | Outpatient (CLI) | payer MEDICARE, SELFPAY ==
[2020-01-13 17:14] VITALS: BMI 24.6
[2020-02-27 16:24] LABS: PSA,Total- Diagnostic < 0.01 ng/mL (0.0-4.0)
== END ==
PROVIDERS: PCP Preventive Medicine Occupational Medicine; Visit Provider Urology
DX: C61 Malignant neoplasm of prostate (principal)
CPT/HCPCS: 36415; 84153

== ENCOUNTER → 2020-08-26 11:16 | Outpatient (CLI) | payer MEDICARE, SELFPAY ==
[2020-01-13 17:14] VITALS: BMI 24.6
[2020-08-26 12:18] LABS: PSA,Total- Diagnostic < 0.01 ng/mL (0.0-4.0)
== END ==
PROVIDERS: PCP Preventive Medicine Occupational Medicine; Referring Provider Urology; Visit Provider Urology
DX: C61 Malignant neoplasm of prostate (principal)
CPT/HCPCS: 36415; 84153

== ENCOUNTER 2020-11-10 17:06 | Observation (INO) | payer MEDICARE, SELFPAY ==
[2020-01-13 17:14] VITALS: BMI 24.6
[2020-11-10 17:07] VITALS: BP 185/87; PULSE 44; RESP 16; TEMP 36.6; O2SAT 100; BMI 25.1
--- NOTE | 2020-11-10 17:16 | CT_ITS ---
HISTORY: Kidney Stone EXAMINATION: CT Abdomen And Pelvis W/O Contrast Injection TECHNIQUE: Multiple axial images were obtained of the abdomen and pelvis without oral or IV contrast. A radiation dose optimization technique was used for this scan. IV Contrast dosage and agent: None. Oral contrast: None. COMPARISON: D pelvis 01/08/20 FINDINGS: LOWER CHEST: Bibasilar dependent changes with calcified granuloma left lung base. No cardiomegaly or pericardial effusion. LIVER: Homogeneous. No focal mass. GALLBLADDER AND BILIARY TREE: No calcified gallstones. No gallbladder distension or wall edema. No intra- or extrahepatic biliary ductal dilation. PANCREAS: No focal cystic or solid mass. SPLEEN: Normal size without focal cystic or solid mass. ADRENAL GLANDS: No nodules. KIDNEYS AND URETERS: Nonobstructing right renal calculi. Right hydronephrosis cluster of small calculi in the proximal right ureter at the level of L3-4 measuring 7 x 14 mm in aggregate. 3 mm calculus in the distal right ureter at the UVJ with 3 mm calculus in the bladder lumen adjacent to the ureteral orifice. Portions of the distal ureters are obscured by beam hardening artifact from the right hip prosthesis. No left hydronephrosis. PERITONEUM: No ascites or free air. BOWEL: Normal appendix. No stomach or bowel distension. Colonic diverticulosis without focal inflammatory bowel wall changes. LYMPH NODES: No enlarged mesenteric or retroperitoneal lymph nodes. VESSELS: Aorta is non-dilated. URINARY BLADDER: Nondistended. REPRODUCTIVE ORGANS: No pelvic masses. ABDOMINAL WALL: Fat-containing left inguinal hernia. BONES: No acute or aggressive abnormality. Posterior lumbar fusion hardware. Right hip prosthesis with protrusion into the right iliac wing. CT/Abdomen/Pelvis without Cont IMPRESSION: Right hydronephrosis with multiple obstructing right ureteral calculi as above. Individualized dose optimization techniques were used for this CT. at 1956 Reported and signed by: Te Palomares MD Electronically Signed: Te Palomares MD at 19:55 EDT Tel , Service support ,
--- NOTE | 2020-11-10 17:29 | EDS_ITS ---
HPI History of Present Illness Chief Complaint: Flank Pain Narrative Narrative: 75-year-old male presenting with right flank pain. This started several hours ago. He states he was not feeling well yesterday and had nausea. He has had vomiting and diarrhea. He denies trouble urinating or hematuria. He has history of multiple kidney stones in the past. This feels similar. Denies fever. Denies chest pain or shortness of breath. Denies other complaints. Prior similar symptoms: Yes PFSH PFSH Medical History (Updated 11/10/20 @ 20:[address] Camila Valle MD) History of kidney stones History of prostate cancer Home Medications aspirin 81 mg PO DAILY #0 01/13/20 [Rx Last Taken 01/08/20] metoprolol tartrate 12.5 mg PO BID tab 01/13/20 [Rx Last Taken Unknown] Mineral Oil/Petrolatum,White [Eucerin] 1 applic TOPICAL HS jar 01/28/20 [Rx Last Taken Unknown] carvedilol [Coreg] 3.125 mg PO DAILY 11/10/20 [History Last Taken Unknown] hydrocodone-acetaminophen 1 tab PO Q4H 11/10/20 [History Last Taken Unknown] Allergy/AdvReac Type Severity Reaction Status Date / Time ciprofloxacin [From Cipro] AdvReac Other Verified 01/13/20 18:40 ciprofloxacin HCl AdvReac Other Verified 01/13/20 18:40 [From Cipro] erythromycin base AdvReac Other Verified 01/13/20 18:40 [Erythromycin Base] potassium AdvReac Other Verified 01/13/20 18:40 Surgical History (Updated 11/10/20 @ 18:25 by Kelli Anand) History of heart bypass surgery History of hip replacement Social History Smoking Status: Former smoker ROS ROS ED Constitutional Constitutional ED: Denies fever(s) Eyes Eyes: Denies change in vision ENT ENT ED: Denies rhinorrhea or sore throat Cardiovascular Cardiovascular: Denies chest pain or palpitations Respiratory/Chest Respiratory/Chest: Denies cough or dyspnea Gastrointestinal Gastrointestinal: Reports abdominal pain, diarrhea, nausea and vomiting Genitourinary Genitourinary ED: Denies dysuria Musculoskeletal Musculoskeletal: Denies myalgias Integumentary Denies rash Neurologic Neurologic: Denies headache(s) Psychiatric Psychiatric: Denies suicidal thoughts EXAM Physical Exam Const Vital Signs: 11/10/20 17:07 11/10/20 17:40 11/10/20 20:00 Temperature 97.9 F Temperature Source Temporal Pulse Rate 44 L 52 L Respiratory Rate 16 18 Respiratory Effort Normal Respiratory Pattern Normal Blood Pressure 185/87 H 135/46 H Blood Pressure Mean 119 75 Pulse Ox 100 97 Oxygen Delivery Method Room Air Room Air Oxygen Flow Rate (L/min) 11/10/20 20:25 Temperature Temperature Source Pulse Rate 46 L Respiratory Rate 14 Respiratory Effort Respiratory Pattern Blood Pressure 132/54 H Blood Pressure Mean 80 Pulse Ox 99 Oxygen Delivery Method Nasal Cannula Oxygen Flow Rate (L/min) 2 Positive well nourished and well developed General Appearance ED: well developed HEENT Reports normocephalic and head/scalp atraumatic Eyes PERRL and EOMs intact bilaterally Neck supple General: Negative for tenderness Chest Wall inspection of chest normal Resp normal respiratory effort and clear to auscultation bilaterally Cardio regular rate and regular rhythm GI non-tender and non-distended Palpation: soft; Negative for guarding or rebound tenderness present no CVA tenderness Back/Spine General Back: CVA tenderness right Extremity normal to inspection Neuro oriented x3 Sensorium / Orientation: alert Psych mental status grossly normal Skin no rashes or lesions noted MDM MDM MDM Narrative Medical decision making narrative: Patient was given morphine, Zofran IV. Patient continued to be in pain and was given Dilaudid IV. He has required multiple doses of pain medication. Discussed with Dr. Reardon for admission. Lab Data Attestation: I reviewed the patient's lab results. Labs: Laboratory Results - last 24 hr 11/10/20 11/10/20 11/10/20 17:40 17:40 20:00 WBC 9.9 RBC 4.52 L Hgb 14.0 Hct 43.1 MCV 95.4 H MCH 31.0 MCHC 32.5 RDW Std Deviation 46.8 H RDW Coeff of Eric 13.4 Plt Count 267 MPV 9.2 Immature Gran % (Auto) 0.300 Neut % (Auto) 82.4 H Lymph % (Auto) 11.0 L [place] % (Auto) 5.3 Eos % (Auto) 0.7 Baso % (Auto) 0.3 Absolute Neuts (auto) 8.2 H Absolute Lymphs (auto) 1.09 Nucleated RBC % 0 Sodium 135 L Potassium 4.8 Chloride 105 Carbon Dioxide 25.0 Anion Gap 5 BUN 20 H Creatinine 1.63 H Estim Creat Clear Calc 30.54 Est GFR (MDRD) Af Amer 53 L Est GFR (MDRD) Non-Af 44 L BUN/Creatinine Ratio 12.3 Glucose 126 H Calcium 10.0 Urine Color Yellow Urine Clarity Sl. Cloudy Urine pH 6.0 Ur Specific [place] 1.020 Urine Protein Negative Urine Glucose (UA) Normal Urine Ketones 50 H Urine Occult Blood 25 H Urine Nitrite Negative Urine Bilirubin Negative Urine Urobilinogen Normal Ur Leukocyte Esterase Negative Urine RBC 0-5 SEEN Urine WBC 0 SEEN Ur Squamous Epith Cells 0-5 SEEN Urine Bacteria 0 SEEN Urine Mucus 0 SEEN Radiography Diagnostic Testing: Radiology Impression Abdomen/Pelvis CT 11/10/20 17:16 IMPRESSION: Right hydronephrosis with multiple obstructing right ureteral calculi as above. Individualized dose optimization techniques were used for this CT. at 1956 Reported and signed by: Te Palomares MD Electronically Signed: Te Palomares MD at 19:55 EDT Tel , Service support , Discharge Plan Dx/Rx/DC Orders Clinical Impression: Urolithiasis Disposition Disposition: Acute Care [facility]
[2020-11-10] MEDS: Morphine 4 MG/ML Syringe IV ×2 (17:41→18:20)
[2020-11-10] MEDS: Ondansetron 4 MG/2 ML Vial IV ×2 (17:41→18:37)
[2020-11-10] MEDS: 0.9% Normal Saline 1,000 ML 250 ML IV (17:42)
[2020-11-10 17:50] LABS: Absolute Lymphocyte Count 1.09 X10^3/uL (0.83-4.51); Absolute Neutrophil Count 8.2 X10^3/uL (2.0-7.7); Basophil# 0.03 X10^3/uL; Basophil% 0.3 % (0-1); Eosinophil# 0.07 X10^3/uL; Eosinophils% 0.7 % (0-5); Hematocrit 43.1 % (40-54); Lymphocyte # 1.09 X10^3/ul (0.83-4.51); Mean Corp Hgb Conc 32.5 g/dL (32-36); Mean Corpuscular Volume 95.4 fL (80-94); Mean Platelet Vol. 9.2 fl (6.2-12.0); Monocyte# 0.53 X10^3/uL; Monocyte% 5.3 % (0-10); NRBC Flagged by Analyzer 0 % (0-5); Neutrophil # 8.18 X10^3/uL (2.7-7.7); Neutrophil % 82.4 % (47-70); Platelet Count 267 K/mm3 (150-450); RBC Distribution Width CV 13.4 % (11.6-14.6); RBC Distribution Width SD 46.8 fl (35.1-43.9); Red Blood Count 4.52 M/mm3 (4.6-6.2); White Blood Count 9.9 K/mm3 (4.4-11.0)
[2020-11-10 18:02] LABS: Anion Gap 5 (5-15); BUN 20 mg/dL (7-18); BUN/Creat Ratio 12.3 RATIO (10-20); Chloride 105 mmol/L (98-107); Creatinine, Serum 1.63 mg/dL (0.70-1.30); EST Glomerular Filtration Rate 44 mL/min (>60); Est Glom Filt Rate - Afr Amer 53 mL/min (>60); Estimated Creatinine Clearance 30.54 ml/min; Glucose 126 mg/dL (74-106); Potassium 4.8 mmol/L (3.5-5.1); Sodium Level 135 mmol/L (136-145)
[2020-11-10] MEDS: HYDROmorphone 1 MG/ML Syringe IV ×2 (18:37→20:09)
[2020-11-10 20:00] VITALS: BP 135/46; PULSE 52; RESP 18; O2SAT 97
[2020-11-10 20:04] LABS: Bacteria 0 SEEN /hpf (None Seen); Mucous, Urine 0 SEEN /hpf (<or=2+); White Blood Cells 0 SEEN /hpf (0-5)
[2020-11-10 20:05] LABS: Color, Urine Yellow (Yellow); Glucose, Dipstick Normal (Normal); Ketone-Dipstick 50 mg/dl (Negative); Leukocyte Esterase-Dipstick Negative /ul (Negative); Nitrite-Dipstick Negative (Negative); Occult Blood-Urine 25 /ul (Negative); Protein-Dipstick Negative (Negative); Urine Bilirubin Dipstick Negative (Negative); Urine Clarity Sl. Cloudy (Clear); Urine Urobilinogen Normal (Normal)
[2020-11-10 20:15] LABS: Red Blood Cells-Urine 0-5 SEEN /hpf (0-5); Squamous Epithelial Cells - UA 0-5 SEEN /hpf (0-5)
[2020-11-10 20:25] VITALS: BP 132/54; PULSE 46; RESP 14; O2SAT 99
[2020-11-10 20:33] VITALS: BP 145/59; PULSE 46; RESP 14; TEMP 36.8; O2SAT 100
--- NOTE | 2020-11-10 21:04 | HP.PCM_ITS ---
HPI - General General Date of Admission: 11/10/20 HPI Narrative UNA LOZADA, is a 75 M who presents with several obstructing stones in the right proximal ureter. Emergenty could not control pain for discharge. admit patient to manage pain and plan for stent in AM. [facility] Medical History (Updated 11/10/20 @ 20:[address] Camila Valle MD) History of kidney stones History of prostate cancer Home Medications aspirin 81 mg PO DAILY #0 01/13/20 [Rx Last Taken 11/10/20] carvedilol [Coreg] 3.125 mg PO BID 11/10/20 [History Last Taken 11/10/20] docusate sodium [Colace] 100 mg PO DAILY 11/10/20 [History Last Taken 11/10/20] hydrocodone-acetaminophen 1 tab PO Q4H 11/10/20 [History Last Taken 11/10/20 15:00] lanolin snivutf-[id number].pet-ceres [Eucerin] 1 applic TOPICAL DAILY 11/10/20 [ History Last Taken 11/09/20] Allergy/AdvReac Type Severity Reaction Status Date / Time ciprofloxacin [From Cipro] AdvReac Other Verified 01/13/20 18:40 ciprofloxacin HCl AdvReac Other Verified 01/13/20 18:40 [From Cipro] erythromycin base AdvReac Other Verified 01/13/20 18:40 [Erythromycin Base] potassium AdvReac Other Verified 01/13/20 18:40 Surgical History (Updated 11/10/20 @ 18:25 by Kelli Anand) History of heart bypass surgery History of hip replacement Social History Smoking Status: Former smoker ROS Constitutional Constitutional: Denies chills, fever(s) or malaise Eyes Eyes: Denies blurry vision or change in vision ENT HEENT: Reports none Cardiovascular Cardiovascular: Denies chest pain or palpitations Respiratory/Chest Respiratory/Chest: Denies cough or shortness of breath with exertion Gastrointestinal Gastrointestinal: Reports abdominal pain; Denies constipation or diarrhea Genitourinary Genitourinary: Reports systems reviewed and no addt'l complaints, except as documented Musculoskeletal Musculoskeletal: Denies joint stiffness or joint swelling Integumentary Integumentary: Denies dry skin, jaundice, lesions or rash Neurologic Neurologic: Denies confusion, syncope or weakness Psychiatric Psychiatric: Reports none; Denies anxiety or depression Endocrine Endocrinology: Denies excessive sweating, fatigue or flushing Hematologic/Lymphatic Hematologic/Lymphatic: Denies anemia, easy bleeding or easy bruising Vital Signs Vital Signs Vital Signs: 11/10/20 17:07 11/10/20 17:40 11/10/20 20:00 Temperature 97.9 F Temperature Source Temporal Pulse Rate 44 L 52 L Respiratory Rate 16 18 Respiratory Effort Normal Respiratory Pattern Normal Blood Pressure 185/87 H 135/46 H Blood Pressure Mean 119 75 Pulse Ox 100 97 Oxygen Delivery Method Room Air Room Air Oxygen Flow Rate (L/min) 11/10/20 20:25 11/10/20 20:33 Temperature 98.3 F Temperature Source Oral Pulse Rate 46 L 46 L Respiratory Rate 14 14 Respiratory Effort Respiratory Pattern Blood Pressure 132/54 H 145/59 H Blood Pressure Mean 80 87 Pulse Ox 99 100 Oxygen Delivery Method Nasal Cannula Nasal Cannula Oxygen Flow Rate (L/min) 2 2 Physical Exam Const alert and oriented x3 General Appearance: cooperative HEENT normocephalic, head/scalp atraumatic, EAC's normal and TM's normal bilaterally Eyes PERRL and EOMs intact bilaterally Pupil: sluggish Neck no lymphadenopathy, supple and no JVD General: trachea midline Lymph Lymphatic: no lymphadenopathy noted, lymphedema and lymphadenopathy Resp normal respiratory effort, normal air movement and clear to auscultation bilaterally Cardio regular rate, regular rhythm and peripheral pulses 2+ throughout GI soft to palpation, non-tender and non-distended Extremity normal capillary refill and no clubbing, cyanosis or edema General Extremity: no tenderness to palpation of joints or extremities Skin no rashes or lesions noted General Skin Exam: turgor normal Lesions: no lesions Rashes: no rashes Neuro CN's II-XII intact bilaterally Speech: speech normal Motor Exam: strength 5/5 throughout; Negative for general weakness Psych thought process normal, cooperative and affect normal Appearance: appropriate Lab / Micro Data Result Diagrams: 11/10/20 17:40 11/10/20 17:40 Labs: Laboratory Results - last 24 hr 11/10/20 11/10/20 11/10/20 17:40 17:40 20:00 WBC 9.9 RBC 4.52 L Hgb 14.0 Hct 43.1 MCV 95.4 H MCH 31.0 MCHC 32.5 RDW Std Deviation 46.8 H RDW Coeff of Eric 13.4 Plt Count 267 MPV 9.2 Immature Gran % (Auto) 0.300 Neut % (Auto) 82.4 H Lymph % (Auto) 11.0 L [place] % (Auto) 5.3 Eos % (Auto) 0.7 Baso % (Auto) 0.3 Absolute Neuts (auto) 8.2 H Absolute Lymphs (auto) 1.09 Nucleated RBC % 0 Sodium 135 L Potassium 4.8 Chloride 105 Carbon Dioxide 25.0 Anion Gap 5 BUN 20 H Creatinine 1.63 H Estim Creat Clear Calc 30.54 Est GFR (MDRD) Af Amer 53 L Est GFR (MDRD) Non-Af 44 L BUN/Creatinine Ratio 12.3 Glucose 126 H Calcium 10.0 Urine Color Yellow Urine Clarity Sl. Cloudy Urine pH 6.0 Ur Specific [place] 1.020 Urine Protein Negative Urine Glucose (UA) Normal Urine Ketones 50 H Urine Occult Blood 25 H Urine Nitrite Negative Urine Bilirubin Negative Urine Urobilinogen Normal Ur Leukocyte Esterase Negative Urine RBC 0-5 SEEN Urine WBC 0 SEEN Ur Squamous Epith Cells 0-5 SEEN Urine Bacteria 0 SEEN Urine Mucus 0 SEEN Radiology Impression Abdomen/Pelvis CT 11/10/20 17:16 IMPRESSION: Right hydronephrosis with multiple obstructing right ureteral calculi as above. Individualized dose optimization techniques were used for this CT. at 1956 Reported and signed by: Te Palomares MD Electronically Signed: Te Palomares MD at 19:55 EDT Tel , Service support , Assessment & Plan Assessment/Plan (1) Urolithiasis: PLAN: admit for kidney stone, NPO at midnight and cysto stent placment in morning.
--- NOTE | 2020-11-10 21:07 | EKG12_ITS ---
Test Reason : PRE OP Blood Pressure : / mmHG Vent. Rate : 043 BPM Atrial Rate : 043 BPM P-R Int : 216 ms QRS Dur : 094 ms QT Int : 514 ms P-R-T Axes : 024 -24 030 degrees QTc Int : 434 ms Marked sinus bradycardia with 1st degree A-V block Lateral infarct , age undetermined Inferior infarct , age undetermined T-Wave Abnormality: Consider Myocardial Ischemia: Lateral Abnormal ECG Confirmed by SWETHA VAUGHN, JACK ([id number]), assistant film editor HILARIO PAK ([id number]) on 11/12/2020 1:57:56 PM Referred By: CHARLOTTE Confirmed By:JACK POSADA MD
[2020-11-10 21:28] VITALS: BMI 24.4
[2020-11-10 21:30] VITALS: BP 164/68; PULSE 44; RESP 18; TEMP 36.8; O2SAT 100
[2020-11-10] MEDS: 0.9% Normal Saline 1,000 ML 75 ML IV (22:11)
[2020-11-10] MEDS: Ketorolac 15 MG/ML Vial IV (22:12)
[2020-11-10] MEDS: Morphine 2 MG/ML Syringe IV (22:12)
[2020-11-10] MEDS: 0.9% Saline Lock 10 ML Syringe IV (22:31)
[2020-11-10] MEDS: Cefazolin 1 GM/50 ML BAG IV (22:31)
[2020-11-11] VITALS (8 sets, daily range): BP systolic 109–133; BP diastolic 44–55; PULSE 43–56; RESP 16; TEMP 36.6–36.9; O2SAT 96–100; BMI 24.5
--- NOTE | 2020-11-11 05:51 | NURSING ---
Handoff given to NAVEEN Xie. Pt being transported to surgery with [facility]IAL RESOLUTION SPECIALIST at time of report.
--- NOTE | 2020-11-11 06:07 | PCM.DC ---
Discharge Instructions Diet Discharge Diet: No restrictions Activity Discharge Activity: May not drive while taking narcotic pain medications. (for 3 days.) May shower in (days): 1 Dressing / Incision Call your doctor if your incision/area has: Continuous Slow Oozing, Increased Pain/ Swelling, Increased Redness and Foul Smelling Discharge Call your doctor if you observe: Fever of 101 or Higher, Numbness or Tingling, Shortness of breath, Dizziness, Calf discomfort and Uncontrolled pain Cleanse incision/area with: Keep Dressing Clean & Dry Follow Up Care Please Follow Up With: Dain Reardon MD When: Call [phone] for an appointment Test Results: Test results from this visit will be discussed in further detail at your follow-up appointment, if applicable. Discharge Plan Admission Admit Date/Time: 11/10/20 20:33 Primary Reason for Your Visit: kidney stones Attending Provider: Dain Reardon Primary Care Provider: Bladimir Bazan Discharge Orders/Prescriptions Prescriptions: New cephalexin [Keflex] 750 mg capsule 750 mg PO BID Qty: 6 RF: 0 ibuprofen 600 mg tablet 600 mg PO Q6H PRN (Reason: pain (scale score 4-6)) Qty: 20 RF: 0 Continued hydrocodone-acetaminophen 5-325 mg Tablet 1 tab PO Q4H RF: 0 carvedilol [Coreg] 3.125 mg tablet 3.125 mg PO BID RF: 0 docusate sodium [Colace] 100 mg Capsule 100 mg PO DAILY RF: 0 Eucerin Cream 1 applic TOPICAL DAILY RF: 0 Held aspirin 81 MG tablet,chewable 81 mg PO DAILY Qty: 0 RF: 0 Hold Instructions: Resume on 11/23/20. Referrals / Follow Up: Dain Reardon MD [STAFF PHYSICIAN] - Bladimir Bazan DO [Primary Care Provider] -
[2020-11-11] MEDS: Cefazolin 1 GM/50 ML BAG IV (06:10)
[2020-11-11] MEDS: Lubricating Jelly 60 GM Tube 30 GM TOPICAL (06:15)
[2020-11-11] MEDS: Lidocaine Jelly 2% 20 ML Syringe (URO-JET) 20 APPLIC (06:15)
--- NOTE | 2020-11-11 06:29 | PCM.OPRPT ---
Problems Associated Problem List Diagnoses (1) Urolithiasis: Report of Operation Date of Procedure: 11/11/20 Pre-Operative Diagnosis: Right multiple ureteral calculi severe renal colic Post-Operative Diagnosis: Same Description of Surgical Findings:: 75-year-old male presented to the emergency room with severe right flank pain the pain was uncontrollable he was admitted to the hospital overnight given Dilaudid and morphine for pain control this morning he presents for stent placement he states the pain is somewhat better this morning on review of the CAT scan he does have multiple stone fragments some in the kidney and some of the ureter. Patient was taken back to the operating room at the smooth induction of general anesthesia he was placed in dorsolithotomy position. The penis and testicles were prepped and draped in usual sterile fashion, went into the bladder with a 21 [place] rigid cystourethroscope, entire length the urethra was normal the prostate was normal slightly large prostate but no significant blockage inside the bladder there was 2 fragments down in the base of the bladder these were evacuated out I then performed a retrograde pyelogram on the right side could still see some contrast hanging up in the lower ureter and appeared to have some fragments still up in the kidney so put a wire up into the kidney and over the wire place a stent on the right side stent coiled in the kidney bladder good position in the drain the bladder patient anesthetic was reversed and he was taken back to PACU good condition he will be discharged home today on my office call for instructions. Type of Anesthesia: MAC and Topical Anesth Drains: stent right Admit VTE Documentation VTE Present on Admission: No VTE Mechan Device Prophylaxis: SCD's
--- NOTE | 2020-11-11 07:14 | NURSING ---
return from OR at 0710hrs. pt alert and oriented. no c/o pain. vitals as charted.
--- NOTE | 2020-11-11 11:46 | PHA.DC.MC ---
Pharmacy Service has performed discharge medication reconciliation and counseling for this patient. 1. CEPHALEXIN 750MG PO BID X 3 DAYS 2. IBUPROFEN 600MG PO Q6H PRN PAIN The patient's discharge medication list was reviewed for discrepancies and discrepancies were resolved. Home Medications aspirin 81 mg PO DAILY #0 01/13/20 Eucerin 1 applic TOPICAL DAILY 11/10/20 carvedilol [Coreg] 3.125 mg PO BID 11/10/20 docusate sodium [Colace] 100 mg PO DAILY 11/10/20 hydrocodone-acetaminophen 1 tab PO Q4H 11/10/20 cephalexin [Keflex] 750 mg PO BID #6 cap 11/11/20 ibuprofen 600 mg PO Q6H PRN #20 tab 11/11/20 The patient was counseled on the following discharge medications and changes in medications for homegoing were reviewed. The Reason for Use, instructions for use, and potential side effects were reviewed for all new medications. The patient's questions regarding all of their medications were answered. The patient was able to verbally demonstrate an understanding of their discharge medications.
== END 2020-11-11 12:55 | disposition home or self-care (01) ==
LOC: ED 20:30 → MS3 20:48
PROVIDERS: Admitting Provider Urology; Emergency Provider Emergency Medicine; PCP Preventive Medicine Occupational Medicine; Visit Provider Urology
PROC: (CPT 52332; principal; 2020-11-11 06:00)
DX: N13.2 Hydronephrosis with renal and ureteral calculous obstruction (principal); I25.10 Atherosclerotic heart disease of native coronary artery without angina pectoris; H91.93 Unspecified hearing loss, bilateral; I10 Essential (primary) hypertension; I25.2 Old myocardial infarction; Z85.46 Personal history of malignant neoplasm of prostate; Z79.899 Other long term (current) drug therapy; Z79.82 Long term (current) use of aspirin; Z87.891 Personal history of nicotine dependence; Z87.442 Personal history of urinary calculi; Z95.1 Presence of aortocoronary bypass graft
CPT/HCPCS: 00910; 52332; 74176; 76000; 80048; 81001; 85025; 87426; 93005; 96361; 96365; 96366; 96375; 96376; 99218; 99284; J7030; A4216; C2617; G0378; J2405

== ENCOUNTER 2020-12-09 11:10 | Day surgery (SDC) | payer MEDICARE, SELFPAY ==
[2020-11-11 04:05] VITALS: BMI 24.5
[2020-12-09] VITALS (7 sets, daily range): BP systolic 140–168; BP diastolic 66–97; PULSE 50–75; RESP 16; TEMP 36.3–36.6; O2SAT 97–100; BMI 23.6
[2020-12-09] MEDS: Lactated Ringers 1,000 ML 100 ML IV (11:54)
--- NOTE | 2020-12-09 15:06 | PCM.HP.STD ---
HPI - General HPI Narrative UNA LOZADA, is a 75 M who presents with a large stone in the distal right ureter he underwent laser lithotripsy by after lasering the stone became too bloody so I had to stop and I comes back for a second procedure to laser the stone and maybe place a stent. [facility] Medical History (Updated 12/09/20 @ 15:[address] Dain Reardon MD) Coronary artery disease Former smoker Hearing loss, left Hearing loss, right History of kidney stones History of prostate cancer History of stress test Hypertension Kidney stones Myocardial infarct Home Medications aspirin 81 mg PO DAILY #0 01/13/20 [Rx Last Taken 12/05/20] Eucerin 1 applic TOPICAL DAILY 11/10/20 [History Last Taken 11/09/20] carvedilol [Coreg] 3.125 mg PO BID 11/10/20 [History Last Taken 12/09/20] docusate sodium [Colace] 100 mg PO DAILY 11/10/20 [History Last Taken 12/09/20] hydrocodone-acetaminophen 1 tab PO 4X/DAY 11/10/20 [History Last Taken 11/10/20 15:00] ibuprofen 600 mg PO Q6H PRN #20 tab 11/11/20 [Rx Last Taken 12/05/20] cephalexin 500 mg PO BID #6 cap 12/09/20 [Rx Last Taken Unknown] ibuprofen 600 mg PO Q6H PRN #20 tab 12/09/20 [Rx Last Taken Unknown] Allergy/AdvReac Type Severity Reaction Status Date / Time ciprofloxacin [From Cipro] AdvReac Other Verified 12/09/20 11:27 ciprofloxacin HCl AdvReac Other Verified 12/09/20 11:27 [From Cipro] erythromycin base AdvReac Other Verified 12/09/20 11:27 [Erythromycin Base] potassium AdvReac Other Verified 12/09/20 11:27 Surgical History H/O cardiac catheterization History of coronary artery stent placement History of heart bypass surgery History of hip replacement Social History Smoking Status: Former smoker Vital Signs Vital Signs Vital Signs: 12/09/20 11:55 Temperature 97.8 F Temperature Source Temporal Pulse Rate 50 L Respiratory Rate 16 Respiratory Pattern Normal Blood Pressure 140/97 H Blood Pressure Mean 111 Blood Pressure Source Monitor Blood Pressure Position Semi-Fowlers Blood Pressure Location Right Arm Pulse Ox 97 Oxygen Delivery Method Room Air Weight Weight: 60.6 kg Body Mass Index (BMI) 23.6 Physical Exam Const alert and oriented x3 General Appearance: cooperative HEENT normocephalic, head/scalp atraumatic, EAC's normal and TM's normal bilaterally Eyes PERRL and EOMs intact bilaterally Pupil: sluggish Neck no lymphadenopathy, supple and no JVD General: trachea midline Lymph Lymphatic: no lymphadenopathy noted, lymphedema and lymphadenopathy Resp normal respiratory effort, normal air movement and clear to auscultation bilaterally Cardio regular rate, regular rhythm and peripheral pulses 2+ throughout GI soft to palpation, non-tender and non-distended Extremity normal capillary refill and no clubbing, cyanosis or edema General Extremity: no tenderness to palpation of joints or extremities Skin no rashes or lesions noted General Skin Exam: turgor normal Lesions: no lesions Rashes: no rashes Neuro CN's II-XII intact bilaterally Speech: speech normal Motor Exam: strength 5/5 throughout; Negative for general weakness Psych thought process normal, cooperative and affect normal Appearance: appropriate Results Lab / Micro Data Micro: Microbiology 12/08/20 09:45 SARS-CoV-2 Antigen (Rapid) - Final Interface Orders Assessment & Plan Assessment/Plan (1) Right ureteral calculus: PLAN: Plan to proceed with laser lithotripsy of the right kidney stone.
--- NOTE | 2020-12-09 15:07 | PCM.DC ---
Discharge Instructions Diet Discharge Diet: No restrictions Dressing / Incision Call your doctor if your incision/area has: Continuous Slow Oozing, Increased Pain/ Swelling, Increased Redness and Foul Smelling Discharge Call your doctor if you observe: Fever of 101 or Higher, Numbness or Tingling, Shortness of breath, Dizziness, Calf discomfort and Uncontrolled pain Follow Up Care Please Follow Up With: Dain Reardon MD Test Results: Test results from this visit will be discussed in further detail at your follow-up appointment, if applicable. Discharge Plan Admission Primary Reason for Your Visit: right ureteroscopy laser stones. Attending Provider: Dain Reardon Primary Care Provider: Bladimir Bazan Discharge Orders/Prescriptions Prescriptions: New cephalexin 500 mg capsule 500 mg PO BID Qty: 6 RF: 0 ibuprofen 600 mg tablet 600 mg PO Q6H PRN (Reason: pain) Qty: 20 RF: 0 Continued aspirin 81 MG tablet,chewable 81 mg PO DAILY Qty: 0 RF: 0 Hold Instructions: Resume on 11/23/20. hydrocodone-acetaminophen 5-325 mg Tablet 1 tab PO 4X/DAY RF: 0 carvedilol [Coreg] 3.125 mg tablet 3.125 mg PO BID RF: 0 docusate sodium [Colace] 100 mg Capsule 100 mg PO DAILY RF: 0 Eucerin Cream 1 applic TOPICAL DAILY RF: 0 ibuprofen 600 mg tablet 600 mg PO Q6H PRN (Reason: pain (scale score 4-6)) Qty: 20 RF: 0 Referrals / Follow Up: Dain Reardon MD [STAFF PHYSICIAN] - Bladimir Bazan DO [Primary Care Provider] - Disposition Discharge Orders: Discharge Patient (Routine); Ordered 12/09/20 Ordered By: Dr. Dain Reardon
[2020-12-09] MEDS: Cefazolin 2 GM in 0.9% Normal Saline 100 ML IV (15:08)
--- NOTE | 2020-12-09 16:04 | OP.PCM_ITS ---
Report of Operation Date of Procedure: 12/09/20 Pre-Operative Diagnosis: Right ureteral calculi multiple, right ureteral strict ure Post-Operative Diagnosis: Same Surgery/Procedure Performed:: Cystoscopy, right retrograde pyelogram, right ureteroscopy laser lithotripsy of stone fragments, balloon dilation of the right ureter for stricture Description of Surgical Findings:: Patient was taken back to the operating room after smooth induction of general anesthesia he was placed supine on the table, the penis and testicles were prepped and draped in usual sterile fashion, went into the bladder with a 21 [place]ayan rigid cystourethroscope, I grabbed the existing stent emanating from the right ureteral orifice from prior procedure. Pulled out the stent to the meatus and then through the stent I tried to put the wire in but the wire would not go up to the kidneys or pulled the stent all the way out then went back into the bladder and cannulated the right ureter orifice with a Glidewire advanced a wire up into the kidney and the next to the wire went in with a SlimLine rigid ureteroscope was able to get into the distal ureter I lasered out a bunch of fragments in the distal ureter that were still there try to go up the ureter further but there was A stricture right in the ureter so I backed out the semirigid ureteroscope I then advanced a 15 [place]ayan balloon dilator and using an insufflator I balloon dilated the distal ureter and the stricture in the distal ureter the stricture was a result of the stones. After dilating this then I left the wire in place I went in with the flexible ureteroscope was able to get all the way to the kidney and then I worked my way work my way down the ureter as I work my way down the ureter I encountered stones and as I then counted the stones I lasered the stone little tiny pieces that should pass on her own and finally worked my way all the way down the ureter some more stone fragments passed out of the ureter and then finally got the entire ureter clear of all the stone fragments but he still had a very inflamed area in the distal ureter with a stone and been stuck for a long time so I decided to leave a stent and we did date dilate this open so this should heal up nicely. I then advanced a stent a 6 [place]ayan by 26 tender stent left in the kidney and bladder and I will see him next week to do a cystoscopy stent removal. Patient has had a reversed taken at the PACU good condition. Surgeon: Alexys Type of Anesthesia: General Drains: stent right Admit VTE Documentation VTE Present on Admission: No VTE Mechan Device Prophylaxis: SCD's
== END 2020-12-09 18:08 ==
LOC: SDC 11:11 → AC 11:13
PROVIDERS: PCP Preventive Medicine Occupational Medicine; Referring Provider Urology; Visit Provider Urology
PROC: 0TJ98ZZ Inspection of Ureter, Via Natural or Artificial Opening Endoscopic (ICD-10-PCS; CPT 52352; principal; 2020-12-09 13:35)
DX: N20.1 Calculus of ureter (principal); Z20.822 Contact with and (suspected) exposure to COVID-19; I25.10 Atherosclerotic heart disease of native coronary artery without angina pectoris; I10 Essential (primary) hypertension; H91.93 Unspecified hearing loss, bilateral; Z79.82 Long term (current) use of aspirin; Z79.899 Other long term (current) drug therapy; I25.2 Old myocardial infarction; Z87.442 Personal history of urinary calculi; Z85.46 Personal history of malignant neoplasm of prostate; Z87.891 Personal history of nicotine dependence; Z95.5 Presence of coronary angioplasty implant and graft
CPT/HCPCS: 00918; 52356; 76000; 87426; C9803; J7120; C1726; C1769; C2617; J2405

== ENCOUNTER → 2021-01-26 15:15 | Outpatient (CLI) | payer MEDICARE, SELFPAY ==
[2020-12-09 11:55] VITALS: BMI 23.6
[2021-01-26 17:34] LABS: PSA,Total- Diagnostic < 0.01 ng/mL (0.0-4.0)
== END ==
PROVIDERS: PCP Preventive Medicine Occupational Medicine; Referring Provider Urology; Visit Provider Urology
DX: C61 Malignant neoplasm of prostate (principal)
CPT/HCPCS: 36415; 84153

== ENCOUNTER 2021-07-27 11:51 | Outpatient (CLI) | payer MEDICARE, SELFPAY ==
[2021-07-27 13:43] LABS: PSA,Total- Diagnostic < 0.01 ng/mL (0.0-4.0)
== END 2021-07-27 23:59 | disposition short-term general hospital (02) ==
LOC: LAB 11:54
PROVIDERS: PCP Preventive Medicine Occupational Medicine; Visit Provider Urology
DX: C61 Malignant neoplasm of prostate (principal)
CPT/HCPCS: 36415; 84153

== ENCOUNTER 2022-08-10 10:39 | Day surgery (SDC) | payer MEDICARE, SELFPAY ==
[2022-08-10 11:16] VITALS: BP 141/74; PULSE 49; RESP 17; TEMP 36.6; O2SAT 100; BMI 20.1
[2022-08-10] MEDS: Lactated Ringers 1,000 ML 15 ML IV (11:22)
[2022-08-10] MEDS: Cefazolin 2 GM in 0.9% Normal Saline 100 ML IV (13:37)
--- NOTE | 2022-08-10 13:42 | DCINST_ITS ---
Discharge Instructions Diet Discharge Diet: No restrictions, Light diet - advance as tolerated and Soft diet Follow Up Care Please Follow Up With: Dain Reardon MD When: call for appt to remove stent Test Results: Test results from this visit will be discussed in further detail at your follow- up appointment, if applicable. Discharge Plan Admission Primary Reason for Your Visit: laser kidney stones Attending Provider: Dain Reardon Primary Care Provider: Bladimir Bazan Discharge Orders/Prescriptions Prescriptions: New cephalexin 500 mg capsule 500 mg PO BID Qty: 6 0RF oxycodone-acetaminophen [Endocet] 5-325 mg tablet 1 tab PO Q6H PRN (Reason: pain) 7 Days Qty: 10 0RF Continued aspirin 81 MG tablet,chewable 81 mg PO DAILY Qty: 0 0RF Hold Instructions: Resume on 11/23/20. Label Comments: PT TO STOP ASA 3 DAYS PRIOR TO OR, LAST DOSE 08/06/22 Rx Instructions: Hold aspirin 81 mg once daily dose while the patient is on twice daily dosage for DVT prophylaxis. Resume after completion of twice daily dose. hydrocodone-acetaminophen 5-325 mg Tablet 1 tab PO 4X/DAY carvedilol [Coreg] 3.125 mg tablet 3.125 mg PO BID Label Comments: TAKE 1 TABLET BY MOUTH TWICE A DAY docusate sodium [Colace] 100 mg Capsule 100 mg PO DAILY Eucerin Cream 1 applic TOPICAL DAILY ibuprofen 600 mg tablet 600 mg PO Q6H PRN (Reason: pain (scale score 4-6)) Qty: 20 0RF Referrals / Follow Up: Dain Reardon MD [Med Staff - Active Staff] - Bladimir Bazan DO [Primary Care Provider] - Disposition Disposition (needs filled in before D/C Order can be placed): Home, Self Care
--- NOTE | 2022-08-10 13:42 | PCM.HP.STD ---
HPI - General HPI Narrative UNA LOZADA, is a 76 M who presents for laser of stones in the right ureter and possible stent placement [facility] Medical History (Updated 08/10/22 @ 13:[address] Dain Reardon MD) Anxiety Back pain Cancer Cardiology follow-up encounter Coronary artery disease Former smoker Hearing loss, left Hearing loss, right High cholesterol History of echocardiogram History of kidney stones History of prostate cancer History of stress test Hypertension Injury of back Kidney stones Myocardial infarct Shortness of breath on exertion Home Medications aspirin 81 mg chewable tablet 81 mg PO DAILY [facility] [email or web address] ##0 01/13/20 [Rx Last Taken 12/05/20] carvedilol 3.125 mg tablet (Coreg) 3.125 mg PO BID 11/10/20 [History Last Taken 12/09/20] docusate sodium 100 mg capsule (Colace) 100 mg PO DAILY 11/10/20 [History Last Taken 12/09/20] hydrocodone-acetaminophen 5-325mg 5mg-325mg 1 tab PO 4X/DAY 11/10/20 [History Last Taken 11/10/20 15:00] lanolin alcohols-mineral oil-w.petrolatum-ceresin topical cream (Eucerin topical cream) 1 applic topical DAILY SKIN 11/10/20 [History Last Taken 11/09/20] ibuprofen 600 mg tablet 600 mg PO Q6H PRN pain (scale score 4-6) #20 tabs 11/11/20 [Rx Last Taken 12/05/20] cephalexin 500 mg capsule 500 mg PO BID #6 caps 08/10/22 [Rx Last Taken Unknown] oxycodone-acetaminophen 5 mg-325 mg tablet (Endocet) 1 tab PO Q6H PRN pain 7 days #10 tabs 08/10/22 [Rx Last Taken Unknown] Allergy/AdvReac Type Severity Reaction Status Date / Time ciprofloxacin [From Cipro] AdvReac Other Verified 08/05/22 11:09 ciprofloxacin HCl AdvReac Other Verified 08/05/22 11:09 [From Cipro] erythromycin base AdvReac Other Verified 08/05/22 11:09 [Erythromycin Base] potassium AdvReac Other Verified 08/05/22 11:09 Surgical History (Updated 08/05/22 @ 11:18 by Usha Wall) H/O cardiac catheterization History of coronary artery stent placement History of heart bypass surgery History of hip replacement Social History Smoking Status: Former smoker Vital Signs Vital Signs Vital Signs: 08/10/22 11:16 08/10/22 11:16 Temperature 97.8 F Temperature Source Temporal Pulse Rate 49 L Respiratory Rate 17 Respiratory Pattern Normal Blood Pressure 141/74 H Blood Pressure Mean 96 Blood Pressure Source Monitor Blood Pressure Position Semi-Fowlers Blood Pressure Location Left Arm Pulse Ox 100 Oxygen Delivery Method Room Air Weight Weight: 50 kg Body Mass Index (BMI) 20.1
--- NOTE | 2022-08-10 13:43 | PCM.OPRPT ---
Report of Operation Date of Procedure: 08/10/22 Pre-Operative Diagnosis: Multiple right ureteral calculi Post-Operative Diagnosis: The same Surgery/Procedure Performed:: Cystoscopy, balloon dilation of the right ureter, right retrograde pyelogram, right ureteroscopy laser lithotripsy of multiple stones, interpretation fluoroscopic images, and placement of a right stent Description of Surgical Findings:: This is a 76-year-old male presents to the hospital for treatment of multiple stones in the right distal ureter is quite a few large stones are causing obstruction of the right ureter. Patient was taken to the operating room at the smooth induction of general anesthesia the penis and testicles were prepped and draped in usual sterile fashion, I first advanced a wire up into the kidney under fluoroscopic guidance I could feel the wire traversed across several stones and also on x-ray could see the stones had a whole column of stones in the distal right ureter causing obstruction I then balloon dilated the distal right ureter went in with a semirigid ureteroscope and started lasering some stones in the distal ureter as I went up I encountered a narrow area in the stricture in the ureter so I advanced the balloon dilator up to that area and balloon dilated this narrow area in the distal ureter to allow access to the stones after balloon dilating this and I went up with the semirigid ureteroscope and engage more stones and laser lithotripsy. And then finally went past the pelvic brim and lasered a whole bunch of stones up in the pelvic brim into little pieces took a long time the laser all the stone fragments's are multiple fragments are fairly hard at increased power in the laser to 15 Hz and 1.2 J. We then performed a retrograde pyelogram that demonstrated the anatomy he had some areas of strictures like narrowing in the ureter which was concerning for development of stricture and multiple fragments along the course of the ureter that will need to pass all the major fragments have been treated then worked my way down the ureter advance a wire up into the right kidney over the wire and then placed a stent to 6 Lithuanian by 26 cm stent all this was done under fluoroscopic guidance. So successful lasering of the stone in the distal ureter in the mid ureter and and also passed pelvic rim admit multiple areas of stricture in the ureter probably from the inflammation from the stones being stuck there leave the stent in for a month to let everything heal properly and then we will get the stent out in 1 month in the office. Patient's anesthetic was reversed he is taken back to the PACU in good condition I will let the family know and to see him in 1 month for cystoscopy stent removal. Surgeon: Dain Reardon Type of Anesthesia: General Drains: stent right Admit VTE Documentation VTE Present on Admission: No VTE Mechan Device Prophylaxis: SCD's VTE Pharm Prophylaxis ordered?: No
[2022-08-10 15:00] VITALS: BP 141/74; BP 153/66; PULSE 50; RESP 16; TEMP 36.2; O2SAT 100
[2022-08-10 15:15] VITALS: BP 141/74; BP 145/68; PULSE 46; RESP 16; O2SAT 99
[2022-08-10 15:30] VITALS: BP 141/74; BP 154/70; PULSE 47; RESP 16; TEMP 36.6; O2SAT 97
[2022-08-10] MEDS: oxyCODONE 5 MG Tablet PO (15:55)
[2022-08-10 16:28] VITALS: BP 141/74; BP 158/56; PULSE 47; RESP 16; O2SAT 97
== END 2022-08-10 16:30 | disposition home or self-care (01) ==
LOC: SDC 10:40 → AC 10:42
PROVIDERS: PCP Preventive Medicine Occupational Medicine; Referring Provider Urology; Visit Provider Urology
PROC: 0TJ98ZZ Inspection of Ureter, Via Natural or Artificial Opening Endoscopic (ICD-10-PCS; CPT 52352; principal; 2022-08-10 13:10)
DX: N13.2 Hydronephrosis with renal and ureteral calculous obstruction (principal); I10 Essential (primary) hypertension; I25.10 Atherosclerotic heart disease of native coronary artery without angina pectoris; E78.00 Pure hypercholesterolemia, unspecified; Z79.82 Long term (current) use of aspirin; Z79.899 Other long term (current) drug therapy; I25.2 Old myocardial infarction; Z87.891 Personal history of nicotine dependence; Z87.442 Personal history of urinary calculi; Z85.46 Personal history of malignant neoplasm of prostate
CPT/HCPCS: 52356; 76000; J7120; C1769; C2617; J2405

== ENCOUNTER → 2022-09-27 | Outpatient (REF) | payer MEDICARE, SELFPAY ==
[2022-09-27 08:39] LABS: Hematocrit 33.4 % (40-54); Hemoglobin 11.1 g/dL (13.0-16.5); Mean Corp Hgb Conc 33.2 g/dL (32-36); Mean Corpuscular Hgb 32.5 pg (27.0-32.0); Mean Corpuscular Volume 97.7 fL (80-94); Mean Platelet Vol. 10.5 fl (6.2-12.0); Platelet Count 296 K/mm3 (150-450); RBC Distribution Width CV 14.8 % (11.6-14.6); RBC Distribution Width SD 52.8 fl (35.1-43.9); Red Blood Count 3.42 M/mm3 (4.6-6.2)
[2022-09-27 09:05] LABS: ALB/GLOB Ratio 0.7 RATIO (0.9-2.4); AST(SGOT) 22 U/L (15-37); Alanine Aminotransfer ALT/SGPT 10 U/L (16-61); Albumin, Serum 2.3 g/dL (3.2-5.0); Alkaline Phosphatase 128 U/L (45-117); Anion Gap 7 (5-15); BUN 19 mg/dL (7-18); BUN/Creat Ratio 9.5 RATIO (10-20); Calcium,Total 8.1 mg/dL (8.5-10.1); Chloride 108 mmol/L (98-107); Creatinine, Serum 2.01 mg/dL (0.70-1.30); EST Glomerular Filtration Rate 34 mL/min (>60); Est Glom Filt Rate - Afr Amer 41 mL/min (>60); Globulin 3.3 g/dL (2.2-4.2); Glucose 70 mg/dL (74-106); Potassium 3.9 mmol/L (3.5-5.1); Protein, Total 5.6 g/dL (6.4-8.2); Sodium Level 135 mmol/L (136-145)
== END ==
LOC: OLS.SW 05:00
PROVIDERS: PCP Preventive Medicine Occupational Medicine; Visit Provider Family Medicine
DX: R79.9 Abnormal finding of blood chemistry, unspecified (principal)
CPT/HCPCS: 36415; 80053; 85027